=== PATIENT | female | born 1945 | race Caucasian/White ===

== ENCOUNTER 2018-01-16 04:33 | Emergency (ER) | payer MEDICARE, OTHER ==
[~2018-01-16] VITALS: Ht 165.1 cm; Wt 90.7 kg
[~2018-01-16 04:33] MED LIST: ALPR.25T PO; ASP81CT PO; BNZ10T PO; CEFU250T PO; CHOL100011 PO; CLD600T PO; CODE-54 PO; DIAZIDE; DIPH25TA82 PO; DIPH50CA33; FLD5TCR; GINK120C PO; GINKGO; GINKGO BILOBA 40 MG PO; KCL10CCR PO; LEVO250T11 PO; LOTREL; LOVA20TA2 PO; MELO-195 PO; MELO7.5T; MULT1TAB63 PO; PROP1TAB77; SERT100T8 PO; SERT50TA; TRIA1CAP PO
--- OUTSIDE RECORDS SUMMARY | 2018-01-16 04:40 | XMS REPORT | Clinical Summary ---
Author Author User, [employer] Katelyn Bruno DO, FACP Address Unknown Phone Allergies, Adverse Reactions, Alerts Allergy Name Reaction Description Start Date Severity Status Provider MORPHINE respiratory depression Critical Active Katelyn Bruno LORTAB confusion Critical Active Katelyn Bruno FLEXERIL Dermatological problems, e.g., rash, hives Critical Active Katelyn Bruno Conditions or Problems Problem Name Problem Code Onset Date Status Entry Date Provider Comment Standard Description Annotate HYPERCHOLESTEROLEMIA 272.0 Active Katelyn Bruno Pure hypercholesterolemia HYPERTENSION, ACCELERATED OR MALIGNANT 401.0 Active Katelyn Bruno Malignant essential hypertension OSTEOARTHRITIS 715.90 Active Katelyn Bruno Osteoarthrosis, unspecified whether generalized or localized, involving unspecified site SINUSITIS, ACUTE 461.9 Resolved Katelyn Bruno Acute sinusitis, unspecified BACK PAIN 724.5 Resolved Katelyn Bruno Backache, unspecified CARPAL TUNNEL SYNDROME, LEFT 354.0 Resolved Katelyn Bruno Carpal tunnel syndrome SCREENING MAMMOGRAM NEC V76.12 Resolved Katelyn Bruno Other screening mammogram DIABETES MELLITUS, TYPE II, FAMILY HX V18.0 Resolved Katelyn Bruno Family history of diabetes mellitus DEPRESSION 311 Active Katelyn Bruno Depressive disorder, not elsewhere classified SINUSITIS 473.9 Resolved Katelyn Bruno Unspecified sinusitis (chronic) BRONCHITIS 490 Resolved Katelyn Bruno Bronchitis, not specified as acute or chronic PNEUMONIA 486 Resolved Katelyn Bruno Pneumonia, organism unspecified SINUSITIS 473.9 Resolved Katelyn Bruno Unspecified sinusitis (chronic) ABDOMINAL PAIN, ACUTE 789.00 Resolved Katelyn Bruno Abdominal pain, unspecified site SYMPTOM, PAIN, ABDOMINAL, GENERALIZED 789.07 Resolved Katelyn Bruno Abdominal pain, generalized POLYARTHRALGIA 719.49 Active Katelyn Bruno Pain in joint involving multiple sites VACCINE AGAINST STREPTOCOCCUS PNEUMONIAE V03.82 Resolved Katelyn Bruno Need for prophylactic vaccination against Streptococcus pneumoniae [pneumococcus] MAMMOGRAM, ABNORMAL 793.80 Resolved Katelyn Bruno Abnormal mammogram, unspecified HYPERGLYCEMIA, MILD 790.6 Resolved Katelyn Bruno Other abnormal blood chemistry ENCOUNTER FOR LONG-TERM USE OF OTHER MEDICATIONS V58.69 Active Katelyn Bruno Long-term (current) use of other medications CHEST PAIN, ATYPICAL 786.59 Resolved Katelyn Bruno Other chest pain HAND PAIN, LEFT 729.5 Resolved Katelyn Bruno Pain in limb DIABETES MELLITUS, NONINSULIN DEPENDENT (NIDDM) 250.02 Active Katelyn Bruno Diabetes mellitus without mention of complication, type II or unspecified type, uncontrolled BRONCHITIS 490 Resolved Katelyn Bruno Bronchitis, not specified as acute or chronic ACTINIC KERATOSIS 702.0 Resolved Katelyn Bruno Actinic keratosis OSTEOPENIA 733.90 Active Katelyn Bruno Disorder of bone and cartilage, unspecified HIATAL HERNIA WITH REFLUX 553.3 Resolved Katelyn Bruno Diaphragmatic hernia without mention of obstruction or gangrene BACK PAIN 724.5 Resolved Katelyn Bruno Backache, unspecified KNEE PAIN 719.46 Active Katelyn Bruno Pain in joint involving lower leg OTHER SPECIFIED DISORDER OF STOMACH AND DUODENUM 537.89 Resolved Katelyn Bruno Other specified disorders of stomach and duodenum Medication List Medication Instructions Start Date Stop Date Generic Name NDC Status Provider Patient Instruction OMEPRAZOLE 40 MG CPDR 1 PO DAILY OMEPRAZOLE 76074177218 Active Desire Madera REGLAN 10 MG TAB 1 PO 30 minutes before meals and at bedtime METOCLOPRAMIDE HCL 42107484468 No Longer Active Katelyn Bruno PROTONIX 40 MG TBEC 1 po qd PANTOPRAZOLE SODIUM 80212620953 No Longer Active Desire Madera OMEPRAZOLE 40 MG CPDR 1 PO BID OMEPRAZOLE 21508733654 No Longer Active Desire Madera TRIAMCINOLONE ACETONIDE 0.1 % CREA apply BID prn TRIAMCINOLONE ACETONIDE (TOP) 63099290275 Active Katelyn Bruno ZOSTAVAX 02574 UNT/0.65ML SOLR 1 injection once to prevent Shingles ZOSTER VACCINE LIVE 61682707797 No Longer Active Katelyn Bruno KLOR-CON 10 10 MEQ CR-TABS 1 PO daily POTASSIUM CHLORIDE 88121722207 Active Desire Madera PROTONIX 40 MG TBEC 1 po BID PANTOPRAZOLE SODIUM 43228998086 No Longer Active Desire Madera ZOLOFT 100 MG TABS 1 po daily SERTRALINE HCL 73145902533 Active Desire Madera VITAMIN D 1000 UNIT TABS 1 PO Daily CHOLECALCIFEROL 29535406325 Active Katelyn Bruno TRAMADOL HCL 50 MG TABS 0.5-1 tabs po q6 hrs prn TRAMADOL HCL 07623981981 No Longer Active Katelyn Gianna Bruno MELATONIN 3 MG CAPS 1 PO Q6hrs prn MELATONIN 14656779903 No Longer Active Katelyn Gianna Bruno AUGMENTIN 500-125 MG TAB 1 PO BID AMOXICILLIN-POT CLAVULANATE 66365586212 No Longer Active Aysha Hollidayg ROBITUSSIN A-C 10-100 MG/5ML SYRUP 1 teaspoon PO Q 4-6 hr prn ROBITUSSIN A-C 10-100 MG/5ML SYRUP No Longer Active Katelyn Gianna Bruno AUGMENTIN 500-125 MG TAB 1 PO BID AMOXICILLIN-POT CLAVULANATE 98415116533 No Longer Active Katelyn Gianna Bruno CALTRATE 600 PLUS-VIT D 600-200 MG-IU TABS 1 PO BID CALCIUM-VITAMIN D Active Katelyn Gianna Bruno BENADRYL 25 MG CAP 1 PO QHS DIPHENHYDRAMINE HCL 05325906425 No Longer Active Katelyn Gianna Bruno ROBITUSSIN A-C 10-100 MG/5ML SYRUP 1 teaspoon PO Q 4-6 hr prn ROBITUSSIN A-C 10-100 MG/5ML SYRUP No Longer Active Desire Madera TYLENOL WITH CODEINE #3 300-30 MG TABS 1 PO Q6hrs prn pain ACETAMINOPHEN-CODEINE 13813627308 Active Desire Madera ROBITUSSIN A-C 10-100 MG/5ML SYRUP 1 teaspoon PO Q 4-6 hr prn ROBITUSSIN A-C 10-100 MG/5ML SYRUP No Longer Active Desire Madera ULTRACET 37.5-325 MG TABS 1 po q 6 hrs prn TRAMADOL- ACETAMINOPHEN 62834389364 No Longer Active Katelyn Gianna Bruno DARVON 65 MG CAPS 1 PO TID PROPOXYPHENE HCL 85099879259 No Longer Active Katelyn Gianna Damion CALTRATE PLUS 600-200 MG-UNIT TABS 1 PO daily CALCIUM CARBONATE-VIT D-MIN 40164966079 No Longer Active Katelyn Gianna Bruno LORTAB 5 5-500 MG TABS 1 to 2 PO Q6hrs prn ACETAMINOPHEN-HYDROCODONE 45429145118 No Longer Active Katelyn Gianna Bruno LOVASTATIN 20 MG TABS 1 PO daily LOVASTATIN 80474136216 Active Desireleonidas Madera DARVOCET-N 100 100-650 MG TABS 2 PO in AM and 1 PO PM PROPOXYPHENE N-APAP 80882444704 No Longer Active Desire Wyalusing XANAX 0.25 MG TABS 1 PO Q6hrs prn ALPRAZOLAM 93321289017 Active Desireleonidas Madera ZOLOFT 50 MG TABS 1 po daily SERTRALINE HCL 19024871032 No Longer Active Katelyn Gianna Damion PERCOCET 5-325 MG TAB 1 PO Q 6 hours prn OXYCODONE- ACETAMINOPHEN 12548834486 No Longer Active Katelyn Gianna Bruno FELODIPINE 5 MG TB24 1 PO daily FELODIPINE 49855364857 No Longer Active Katelyn Gianna Damion MUJICAVOCET-N 100 100-650 MG TABS 2 in the am, and then 1 in the pm prn 04/20 PROPOXYPHENE N-APAP 75572190578 No Longer Active Katelyn Gianna Bruno BACTERICIN 500 UNIT/GM OINT (BACITRACIN) EYE OINTMENT apply to right eye Q4hrs for 7 days BACTERICIN 500 UNIT/GM OINT ( BACITRACIN) EYE OINTMENT No Longer Active Katelyn Gianna Bruno TESSALON 200 MG CAPS 1 PO TID prn cough BENZONATATE 97849292011 No Longer Active Katelynsally Bruno ROBITUSSIN A-C 10-100 MG/5ML SYRUP 1 teaspoon PO Q 4-6 hr prn ROBITUSSIN A-C 10-100 MG/5ML SYRUP 53147177314 No Longer Active Katelynsally Bruno MUCINEX 600 MG TB12 1 PO BID for 5 days GUAIFENESIN 11762949863 No Longer Active Katelynsally Bruno BIAXIN XL PAC 500 MG TB24 2 pills at same time daily for 7 days CLARITHROMYCIN 64975952687 No Longer Active Katelynsally Bruno LORTAB 5 5-500 MG TABS 1 PO Q4-6 hrs. prn pain HYDROCODONE-ACETAMINOPHEN 41053614909 No Longer Active Katelynsally Bruno ANTIVERT 25 MG TABS 1 PO Q6hrs prn dizziness MECLIZINE HCL 12283222956 No Longer Active Katelynsally Bruno XANAX 0.25 MG TABS 1/2 -1 po q 4-6 hrs. prn ALPRAZOLAM 69146609848 No Longer Active Katelyn Bruno PREDNISONE 20 MG TAB 2 daily for 4 days. PREDNISONE 14675105793 No Longer Active Katelynsally Bruno LEVAQUIN 500 MG TAB 1 PO QD for 7 days LEVOFLOXACIN 84210833306 No Longer Active Katelynsally Bruno BIAXIN XL 500 MG TB24 2 pills at the same time daily for 7 days CLARITHROMYCIN 38666820702 No Longer Active Toby Hines PREDNISONE 20 MG TABS 2 po QD x 3 days PREDNISONE 80552733917 No Longer Active Katelynsally Bruno ADVAIR DISKUS 100-50 MCG/DOSE MISC 1 puff BID FLUTICASONE-SALMETEROL 10590753827 No Longer Active Katelynsally Bruno CODICLEAR DH 5-100 MG/5ML SYRP 5 cc Po Q4-6prn HYDROCODONE-GUAIFENESIN 10273277660 No Longer Active Z Z BIAXIN XL PAC 500 MG TB24 2 pills at same time daily for 7 days CLARITHROMYCIN 93331730536 No Longer Active Z Z SOMA 350 MG TAB 1 PO TID prn CARISOPRODOL 82323524690 No Longer Active Katelyn Gianna Bruno CODICLEAR DH 5-100 MG/5ML SYRP 5 cc Po Q4-6prn HYDROCODONE-GUAIFENESIN 73930202598 No Longer Active Katelyn CUNNINGHAM'S NASAL SPRAY (DEXAMETHASONE, GENTAMICIN, SALINE) 2 puffs each nostril TID DR. CUNNINGHAM'Carlee NASAL SPRAY (DEXAMETHASONE, GENTAMICIN, SALINE) No Longer Active Katelyn Bruno AUGMENTIN 875-125 MG TAB 1 PO BID for 7 days AMOXICILLIN-POT CLAVULANATE 70081653799 No Longer Active Katelyn Bruno BENAZEPRIL HCL 10 MG TABS 1 PO daily BENAZEPRIL HCL 55730951575 Active Desire Madera MOBIC 15 MG TABS 1 po daily MELOXICAM 68919390015 Active Desire Madera VITAMIN E 400 UNIT CAPS 1 PO Week VITAMIN E 59368952342 No Longer Active Katelyn Bruno ASPIRIN 81 MG TAB 1 PO daily ASPIRIN 20712679369 Active Katelynsally Bruno SOMA 350 MG TABS 1 po BID PRN CARISOPRODOL 39571713398 No Longer Active Katelynsally Bruno TOPROL XL 25 MG TB24 1 PO QD METOPROLOL SUCCINATE 68803524284 No Longer Active Katelynsally Bruno ZOCOR 20 MG TABS 1 PO QHS for cholesterol SIMVASTATIN 36635913272 No Longer Active Katelyn Gianna Bruno DYAZIDE 37.5-25 MG CAPS 1 PO QD TRIAMTERENE-HCTZ 91487520877 Active Desire Madera BENAZEPRIL HCL 10 MG TABS I Daily BENAZEPRIL HCL 40284591534 No Longer Active Katelyn Gianna Bruno ALTACE 5 MG CAP 1 daily RAMIPRIL 26225798217 No Longer Active Katelyn Gianna Bruno LOTREL 5-10 MG CAPS 1 PO QD AMLODIPINE BESY-BENAZEPRIL HCL 34771802106 No Longer Active Katelyn Gianna Bruno AMOXICILLIN 500 MG CAP 1 PO TID AMOXICILLIN 08328828479 No Longer Active Katelyn Gianna Bruno ROBITUSSIN A-C 10-100 MG/5ML SYRUP 5cc PO Q 4-6 hr prn ROBITUSSIN A-C 10-100 MG/5ML SYRUP 16641697764 No Longer Active Katelyn Gianna Bruno NORVASC 5 MG TABS 1 po QD AMLODIPINE BESYLATE 19061094667 No Longer Active Katelyn Gianna Bruno GINKOBA 40 MG TABS 6 po daily GINKGO BILOBA 29458517195 Active Katelyn Gianna Bruno CALCIUM 600 MG TABS 1 po daily CALCIUM 76582654513 No Longer Active Katelyn Gianna Bruno MULTIVITAMINS TABS 1 po daily MULTIPLE VITAMIN 45751634510 Active Katelyn Gianna Bruno Immunizations Vaccine Administration Date Value Standard Description pneumococcal immunization administered dose 1 pneumococcal polysaccharide vaccine, 23 valent Vital Signs Date Name Value Unit Range Description blood pressure, diastolic - 8462-4 84 mm[Hg] BP capone blood pressure, systolic - 8480-6 146 mm[Hg] BP sys pulse rate E&M - 8867-4 66 /min Heart rate respiratory rate E&M - 9279-1 14 /min Resp rate temperature E&M 98.6 [degF] Body temperature weight E&M - 3141-9 202 [lb_av] Weight Measured blood pressure, diastolic - 8462-4 82 mm[Hg] BP capone blood pressure, systolic - 8480-6 132 mm[Hg] BP sys pulse rate E&M - 8867-4 68 /min Heart rate respiratory rate E&M - 9279-1 14 /min Resp rate temperature E&M 98.6 [degF] Body temperature weight E&M - 3141-9 205 [lb_av] Weight Measured Diagnostic Results Date Name Value Unit Range Description Clinical Lists Update: CBC,CMP,FLP,TSH,HGA1C - Chemistry Estimated Glomerular Filtration Rate (calc) 67 mL/min/1.73m2 albumin, serum 3.8 g/dL alkaline phosphatase, serum 57 U/L urea nitrogen, blood 26 mg/dL calcium, serum 9.1 mg/dL chloride, serum 103 mmol/L cholesterol, serum 178 mg/dL carbon dioxide, venous blood 27.0 mmol/L creatinine, serum 0.9 mg/dL HDL cholesterol, serum 60.0 mg/dL hemoglobin A1C, blood, as % of total hemoglobin 5.8 % thyroid stimulating hormone, serum 2.97 u[iU]/mL LDL cholesterol, serum 102 mg/dL potassium, serum 3.8 mmol/L protein, total, serum 6.5 g/dL aspartate aminotransferase (SGOT), serum 19 U/L alanine aminotransferase (SGPT), serum 12 U/L bilirubin, serum, total 0.3 mg/dL triglyceride, serum, fasting 80 mg/dL sodium, serum 137 mmol/L anion gap, serum 11 cholesterol/HDL ratio, serum, percent 3.0 glucose, plasma fasting 90 mg/dL Clinical Lists Update: CBC,CMP,FLP,TSH,HGA1C - Hematology platelet count 288 10*3/mm3 hematocrit, blood 37.4 % leukocyte count, blood 6.8 10*3/mm3 mean corpuscular volume, RBC 90 fL erythrocyte (RBC) count 4.15 10*6/mm3 red blood cell distribution width 15.2 % hemoglobin, blood 11.7 g/dL Clinical Lists Update: CMP,FLP,HgA1c - Chemistry potassium, serum 3.9 mmol/L protein, total, serum 6.6 g/dL calcium, serum 9.2 mg/dL aspartate aminotransferase (SGOT), serum 18 U/L alanine aminotransferase (SGPT), serum 14 U/L chloride, serum 104 mmol/L bilirubin, serum, total 0.3 mg/dL triglyceride, serum, fasting 80 mg/dL cholesterol, serum 196 mg/dL sodium, serum 140 mmol/L anion gap, serum 10 carbon dioxide, venous blood 30.0 mmol/L cholesterol/HDL ratio, serum, percent 3.1 glucose, plasma fasting 86 mg/dL urea nitrogen, blood 26 mg/dL LDL cholesterol, serum 117 mg/dL creatinine, serum 1.0 mg/dL albumin, serum 3.7 g/dL HDL cholesterol, serum 63.0 mg/dL hemoglobin A1C, blood, as % of total hemoglobin 6.0 % Estimated Glomerular Filtration Rate (calc) 62 mL/min/1.73m2 alkaline phosphatase, serum 58 U/L Clinical Lists Update: Microalbumin - Urinalysis microalbumin, urine, semiquantitative 0.3 mg/dL Encounters Code Encounter Date Provider Facility CPT-93814 Ofc Vst, Est Level IV 17:21:39 [employer] Katelyn Giannachicho Bruno, DO, FACP CPT-30117 Ofc Vst, Est Level III 14:10:40 CDT Katelyn Bruno, DO, FACP CPT-95998 Ofc Vst, Est Level III 14:09:49 [employer] Katelyn Bruno, DO, FACP CPT-72747 Ofc Vst, Est Level III 16:35:58 CDT Katelyn Bruno, DO, FACP CPT-12851 Ofc Vst, Est Level III 14:23:28 CDT Katelyn Bruno DO, FACP CPT-76040 Ofc Vst, Est Level III 16:19:00 CDT Katelyn Bruno, DO, FACP CPT-22099 Ofc Vst, Est Level II 13:40:07 [employer] Katelyn Bruno, DO, FACP CPT-24308 Ofc Vst, Est Level II 14:08:27 CDT Katelyn Bruno DO, FACP CPT-26111 Ofc Vst, Est Level IV 14:30:27 CDT Katelynsally Bruno DO, FACP CPT-83488 Ofc Vst, Est Level III 14:25:12 CDT Katelyn [facility] CPT-62155 Ofc Vst, Est Level IV 14:55:40 CDT Katelyn Bruno, DO, FACP CPT-13196 Ofc Vst, Est Level IV 10:16:53 [employer] Katelyn Gianna Bruno Katelyn S Bruno, DO, FACP CPT-57974 Ofc Vst, Est Level IV 11:33:00 CDT Katelyn Gianna Bejarano Bruno, DO, FACP CPT-99669 Ofc Vst, Est Level IV 09:40:50 CDT Katelyn Gianna Bejarano Bruno, DO, FACP CPT-93003 Ofc Vst, Est Level IV 10:04:43 [employer] Katelyn Bejarano Damion, DO, FACP CPT-46829 Ofc Vst, Est Level IV 10:58:02 CDT Katelyn Gianna Bejarano Damion, DO, FACP CPT-34477 Ofc Vst, Est Level IV 14:54:31 CDT Katelyn Bejarano Damion, DO, FACP CPT-69912 Ofc Vst, Est Level IV 15:50:03 [employer] Katelynsally Bejarano Dmaion, DO, FACP CPT-21466 Office Consult, Level IV 11:22:19 [employer] Katelyn Bejarano Damion, DO, FACP CPT-65158 Ofc Vst, Est Level V 10:18:49 [employer] Katelyn Bejarano Damion, DO, FACP CPT-80742 Ofc Vst, Est Level IV 15:01:36 CDT Katelynsally Bejarano Damion, DO, FACP CPT-56667 Ofc Vst, Est Level IV 12:35:03 CDT Katelynsally Bejarano Damion, DO, FACP CPT-03398 Ofc Vst, Est Level IV 09:26:28 CDT Katelyn Gianna Bejarano Damion, DO, FACP CPT-03802 Ofc Vst, Est Level V 09:09:23 CDT Katelyn Gianna Bejarano Damion, DO, FACP CPT-13778 Ofc Vst, Est Level IV 14:50:18 CDT Katelynsally Bruno DO, FACP CPT-94663 Ofc Vst, Est Level IV 16:23:19 CDT Katelyn Bruno [facility] CPT-93942 Ofc Vst, Est Level IV 10:07:48 CDT Katelynsally Bruno DO, FACP CPT-50246 Ofc Vst, Est Level III 10:50:44 CDT Katelynsally Bruno [facility] [place] CPT-50199 Ofc Vst, Est Level IV 11:24:10 CDT Katelyn Bruno [facility] [place] CPT-69815 Ofc Vst, Est Level IV 15:40:07 [employer] Katelyn Bruno [facility] [place] CPT-53659 Ofc Vst, Est Level IV 16:39:52 CDT Katelyn Bruno [facility] [place] CPT-77558 Ofc Vst, Est Level IV 12:04:13 CDT Katelyn Bruno [facility] [place] CPT-28309 Ofc Vst, Est Level IV 14:53:19 [employer] Katelyn Bruno [facility] [place] CPT-04451 Ofc Vst, Est Level III 16:09:25 [employer] Katelyn Bruno [facility] [place] CPT-19841 Ofc Vst, Est Level IV 17:51:02 CDT Katelyn Bruno [facility] [place] CPT-80752 Ofc Vst, Est Level IV 09:57:23 CDT Katelyn Bruno [facility] [place] CPT-20220 Ofc Vst, Est Level IV 14:22:11 CDT Katelyn Bruno [facility] [place] CPT-28199 Ofc Vst, Est Level IV 09:12:54 CDT Katelyn Bruno [facility] [place] Procedures Code Procedure Name Date Entry Date Standard Description CPT-G0439 Medicare Annual Wellness Visit 17:11:29 CDT CPT-G0439 Medicare Annual Wellness Visit 16:44:31 CDT CPT-G8445 E-Prescribing Not sent due to no medication given 14:10: 40 CDT CPT-G8445 E-Prescribing Not sent due to no medication given 14:09: 49 [employer] CPT-G8446 E-Prescribing not done due to controlled substance 16:35 :58 CDT CPT-G8446 E-Prescribing not done due to controlled substance 14:23 :28 CDT CPT-G8443 E-Prescribing Medication Sent 16:19:00 CDT CPT-G8445 E-Prescribing Not sent due to no medication given 13:40: 07 [employer] CPT-G8445 E-Prescribing Not sent due to no medication given 14:38: 23 [employer] CPT-G0439 Medicare Annual Wellness Visit 14:38:23 [employer] CPT-61003 Cryopathy Skin 14:08:27 CDT CPT-G0402 Medicare Annual Wellness Visit Initial 13:44:52 [employer] CPT-8446 E-Prescribing not done due to controlled substance 14:54: 31 CDT CPT-01060 Injection, Pneumovax 10:18:49 [employer]
--- NOTE | 2018-01-16 04:43 | ED Abdominal Pain ---
General Chief Complaint: Dizziness/Syncope Stated Complaint: NEAR SYNCOPE Source of Information: Patient, EMS Exam Limitations: No Limitations (MARISELA LOVELACE) History of Present Illness Date Seen by Provider: Jan 16, 2018 Time Seen by Provider: 04:31 Initial Comments The patient presents to the ER by EMS with a chief complaint that she had got up this morning to go to the bathroom thought she does not have a bowel movement but didn't became cold clammy and started to pass out. She says she did not completely pass out nor did she fall or hit her head. She got up and went numb lock the door and called EMS. She says she was unable to pass anything and had bloating and tightness in her belly feel like she had ruptured something. She's not having much pain just a lot of pressure down below. She denies dysuria or discharge. She's not had any fevers or chills lately. She does not have a history of heart disease. She does have a history of a hiatal hernia that was found in this ER and was admitted she had to go to [place] to have a cardiothoracic surgeon help repair it. She's not having any chest pain, acid reflux, indigestion. She is not on blood thinners but she does take aspirin and meloxicam. EMS notes her blood pressure was low in the 70-80 systolic range and they started a 20-gauge antecubital IV and got 1 L fluids about 3/4 by the time they got to the ER. (MARISELA LOVELACE) Allergies and Home Medications Allergies Coded Allergies: cyclobenzaprine (Verified Allergy, Unknown, 05/14/07) morphine (Verified Allergy, Unknown, 08/10/08) Home Medications Alprazolam 0.25 Mg Tablet, 0.5 TAB PO Q6H PRN for ANXIETY, (Reported) TAKES 1/2 (0.25MG) TABLET NEEDED FOR ANXIETY Aspirin 81 Mg Tablet, 81 MG PO HS, (Reported) Benazepril Hcl 10 Mg Tablet, 10 MG PO HS, (Reported) Calcium Carbonate/Vitamin D3 1 Tab Tablet, 1 TAB PO DAILY, (Reported) Cefuroxime Axetil 250 Mg Tablet, 250 MG PO BID Prescribed by: STAN MENENDEZ on 01/27/16 1319 Cholecalciferol 1,000 Unit Capsule, 1,000 UNIT PO DAILY, (Reported) Ciprofloxacin HCl 500 Mg Tablet, 500 MG PO BID Prescribed by: KEVIN TEMPLE on 01/16/18820 Diphenhydramine Hcl 25 Mg Tablet, 50 MG PO HS PRN for SLEEP, (Reported) TAKES 2 (25MG) TABLETS NEEDED FOR SLEEP Ginkgo Biloba Extract 120 Mg Capsule, 120 MG PO DAILY, (Reported) Lovastatin 20 Mg Tablet, 20 MG PO HS, (Reported) Meloxicam 15 Mg Tablet, 15 MG PO DAILY, (Reported) Metronidazole 500 Mg Tablet, 500 MG PO QID Prescribed by: KEVIN TEMPLE on 01/16/18820 Multivitamins 1 Ea Tablet, 1 TAB PO DAILY, (Reported) Ondansetron 4 Mg Tab.rapdis, 4 MG PO Q4H Prescribed by: KEVIN TEMPLE on 01/16/18820 Potassium Chloride 10 Meq Capcr, 10 MEQ PO DAILY, (Reported) Sertraline Hcl 100 Mg Tablet, 100 MG PO DAILY, (Reported) Triamterene/Hctz 1 Each Capsule, 1 CAP PO DAILY, (Reported) 37.5-25MG CAPSULE Patient Home Medication List Home Medication List Reviewed: Yes (MARISELA LOVELACE) Review of Systems Constitutional: No chills, No diaphoresis; dizziness, malaise, weakness EENTM: No Blurred Vision, No Double Vision Respiratory: Denies Cough, Denies Shortness of Air Cardiovascular: Denies Chest Pain, Denies Edema Gastrointestinal: Abdomen Distended, Abdominal Pain, Constipated; Denies Diarrhea, Denies Nausea, Denies Poor Fluid Intake, Denies Vomiting Genitourinary: Denies Burning, Denies Discharge Musculoskeletal: No back pain, No joint pain Skin: No pruritus, No rash Psychiatric/Neurological: Denies Headache, Denies Numbness Hematologic/Lymphatic: Denies Blood Clots, Denies Easy Bleeding, Denies Easy Bruising (MARISELA LOVELACE) Past Ovjyhim-Vyoelh-Swglln Hx Patient Social History Recent Foreign Travel: No Contact w/Someone Who Travel: No (MARISELA LOVELACE) Immunizations Up To Date Tetanus Booster (TDap): Unknown PED Vaccines UTD: No Date of Pneumonia Vaccine: May 06, 2010 (MARISELA LOVELACE) Past Medical History Appendectomy, Orthopedic Sleep Apnea Currently Using CPAP: No Currently Using BIPAP: Yes High Cholesterol, Hypertension Reproductive Disorders: Yes Female Reproductive Disorders: Denies [employer]IST[employer] History: Menopausal Sexually Transmitted Disease: No HIV/AIDS: No Hiatal Hernia Degenerate Disk Disease, Arthritis, Chronic Back Pain Breast Anxiety, Depression (MARISELA LOVELACE) Physical Exam Vital Signs Vital Signs - First Documented 01/16/18 01/16/18 01/16/18 04:37 08:03 08:32 Temp 95.0 Pulse 66 Resp 18 B/P (MAP) 115/76 (89) Pulse Ox 98 O2 Delivery Nasal Cannula O2 Flow Rate 2.00 (KEVIN TEMPLE K DO) Vital Signs Capillary Refill : (MARISELA LOVELACE) General Appearance: WD/WN, mild distress HEENT: PERRL/EOMI, pharynx normal Neck: non-tender, supple, normal inspection Respiratory: chest non-tender, lungs clear, normal breath sounds, no respiratory distress, no accessory muscle use Cardiovascular: normal peripheral pulses, regular rate, rhythm, no edema Peripheral Pulses: 2+ Dorsalis Pedis (R), 2+ Left Dors-Pedis (L) Gastrointestinal: normal bowel sounds, no organomegaly, distended; No guarding , No rebound; tenderness (mild, diffuse without Ronquillo sign or pain over McBurney's point) Extremities: non-tender, normal inspection, normal capillary refill Neurologic/Psychiatric: alert, normal mood/affect, oriented x 3 Skin: normal color, warm/dry (MARISELA LOVELACE) Progress/Results/Core Measures Results/Orders Lab Results Laboratory Tests Test 01/16/18 04:36 01/16/18 08:22 Range/Units White Blood Count 11.0 4.3-11.0 10^3/uL Red Blood Count 4.65 4.35-5.85 10^6/uL Hemoglobin 13.6 11.5-16.0 G/DL Hematocrit 41 35-52 % Mean Corpuscular Volume 87 80-99 FL Mean Corpuscular Hemoglobin 29 25-34 PG Mean Corpuscular Hemoglobin Concent 34 32-36 G/DL Red Cell Distribution Width 14.2 10.0-14.5 % Platelet Count 348 130-400 10^3/uL Mean Platelet Volume 8.8 7.4-10.4 FL Neutrophils (%) (Auto) 62 42-75 % Lymphocytes (%) (Auto) 32 12-44 % Monocytes (%) (Auto) 4 0-12 % Eosinophils (%) (Auto) 2 0-10 % Basophils (%) (Auto) 0 0-10 % Neutrophils # (Auto) 6.8 1.8-7.8 X 10^3 Lymphocytes # (Auto) 3.5 1.0-4.0 X 10^3 Monocytes # (Auto) 0.4 0.0-1.0 X 10^3 Eosinophils # (Auto) 0.2 0.0-0.3 10^3/uL Basophils # (Auto) 0.0 0.0-0.1 10^3/uL Sodium Level 140 135-145 MMOL/L Potassium Level 4.0 3.6-5.0 MMOL/L Chloride Level 109 H 98-107 MMOL/L Carbon Dioxide Level 18 L 21-32 MMOL/L Anion Gap 13 5-14 MMOL/L Blood Urea Nitrogen 26 H 7-18 MG/DL Creatinine 1.29 0.60-1.30 MG/DL Estimat Glomerular Filtration Rate 40 BUN/Creatinine Ratio 20 Glucose Level 157 H 70-105 MG/DL Calcium Level 9.5 8.5-10.1 MG/DL Magnesium Level 2.6 H 1.8-2.4 MG/DL Total Bilirubin 0.4 0.1-1.0 MG/DL Aspartate Amino Transf (AST/SGOT) 35 H 5-34 U/L Alanine Aminotransferase (ALT/SGPT) 19 0-55 U/L Alkaline Phosphatase 71 40-136 U/L Troponin I < 0.30 <0.30 NG/ML Total Protein 7.5 6.4-8.2 GM/DL Albumin 3.8 3.2-4.5 GM/DL Urine Color YELLOW Urine Clarity CLEAR Urine pH 5 5-9 Urine Specific [place] 1.015 L 1.016-1.022 Urine Protein 2+ H NEGATIVE Urine Glucose (UA) NEGATIVE NEGATIVE Urine Ketones NEGATIVE NEGATIVE Urine Nitrite NEGATIVE NEGATIVE Urine Bilirubin NEGATIVE NEGATIVE Urine Urobilinogen NORMAL NORMAL MG/DL Urine Leukocyte Esterase 1+ H NEGATIVE Urine RBC (Auto) 1+ H NEGATIVE Urine RBC RARE /HPF Urine WBC 0-2 /HPF Urine Squamous Epithelial Cells 0-2 /HPF Urine Renal Epithelial Cells RARE /HPF Urine Crystals PRESENT H /LPF Urine Amorphous Sediment FEW GUICHO URATES H /LPF Urine Bacteria TRACE /HPF Urine Casts PRESENT /LPF Urine Hyaline Casts 10-25 H /LPF Urine Granular Casts RARE /LPF Urine White Blood Cell Casts RARE H /LPF Urine Mucus NEGATIVE /LPF Urine Culture Indicated NO (KEVIN TEMPLE DO) My Orders Orders - KEVIN TEMPLE DO O2 (01/16/18 08:23) (KEVIN TEMPLE DO) Medications Given in ED Current Medications Medications Dose Ordered Sig/Vidal Route Start Time Stop Time Status Last Admin Dose Admin Diatrizoate Meglum/ Diatrizoate Sod 120 ml ONCE ONCE PO 01/16/18 05:30 01/16/18 05:32 DC 01/16/18 06:44 20 ML Ondansetron HCl 4 mg ONCE ONCE IVP 01/16/18 06:30 01/16/18 06:31 DC 01/16/18 06:27 4 MG (KEVIN TEMPLE DO) Vital Signs/I&O 01/16/18 01/16/18 01/16/18 04:37 08:03 08:32 Temp 95.0 Pulse 66 66 Resp 18 B/P (MAP) 115/76 (89) 94/60 Pulse Ox 98 88 97 O2 Delivery Nasal Cannula Room Air O2 Flow Rate 2.00 (KEVIN TEMPLE DO) Progress Progress Note #1: Time: 04:48 Progress Note The abdomen is not rigid but it is apparently distended as if with gas. Bowel obstruction versus ileus versus diverticulitis versus ischemic bowel. We'll get a CT with contrast of her abdomen and pelvis. We'll give her a couple liters of fluid total including the 1 L started by EMS. Her blood pressure is already above 110 systolic. We will obtain labs and urinalysis. She is declining pain meds at this time. She is not having any nausea or vomiting so she will not need medicine or NG tube bowel decompression. Does not sound like she fell or struck her head so a CT of the head and neck is also unnecessary.. Reviewed the 12-lead from EMS and there is very good, clear sinus rhythm picture. Progress Note #2: Time: 06:15 Progress Note Nursing reports that the patient after drinking the Gastrografin passed a large bowling ball size hard stool ball. Her blood pressure got down to 90 systolic while she was on the chair but she did not pass out. She feels a little better and she is not having any nausea. Her pain and pressure is beginning to mildly improved. Plan is to get the CT scan after the Gastrografin has passed through the bowels and reevaluate. Most likely she's had vasovagal syncope secondary to obstipation. (MARISELA LOVELACE) Progress Note : Progress Note 0615--ASSUMED CARE FROM DR. LOVELACE, CT PENDING. PT IS RESTING QUIETLY AND HAS NO COMPLAINTS AT THIS TIME PT DECLINES RX FOR PAIN MEDICATIONS, STATES SHE HAS TYLENOL 33 AT HOME (KEVIN TEMPLE DO) Initial ECG Impression Date: Jan 16, 2018 Initial ECG Impression Time: 04:50 Initial ECG Rate: 63 Initial ECG Rhythm: Normal Sinus Initial ECG Intervals: Normal Initial ECG Impression: Normal Initial ECG Comparisson: Unchanged Comment Low amplitude with hard to make out P waves but the QRS rhythms are very regular. No ST elevation or depression. (MARISELA LOVELACE) Diagnostic Imaging Diagonstic Imaging: CT (with contrast) Plain Films/CT/US/NM/MRI: abdomen, pelvis Reviewed: Reviewed Night [place] Study, Reviewed by Me (MARISELA LOVELACE) Comments CT ABDOMEN/PELVIS--DIVERTICULITIS, HIATAL HERNIA--PER RADIOLOGIST REPORT @ 0815 Reviewed: Reviewed by Me (KEVIN TEMPLE DO) Transfer of Care Time: 06:14 Care transferred to: Angel Luis (MARISELA LOVELACE) Departure Impression Primary Impression: Near syncope Additional Impressions: Diverticulitis Mild dehydration Constipation Disposition: 01 HOME, SELF-CARE Condition: Improved Departure-Patient Inst. Referrals: LAVON JI DO (PCP/Family) Primary Care Physician Patient Instructions: Constipation, Adult (DC), Dehydration, Adult (DC), Diverticulitis (DC), Fecal Impaction (DC), Syncope (Fainting), Vasovagal Response (DC) Add. Discharge Instructions: LOTS OF CLEAR LIQUIDS--WATER, BROTH, JELLO, GATORADE NO FOOD UNTIL YOUR PAIN IS GONE, THEN ADD BRATS DIET TO CLEAR LIQUIDS--BANANAS, RICE, APPLESAUCE, TOAST, SALTINES TAKE MIRALAX DAILY TAKE YOUR HOME TYLENOL #3 NEEDED FOR PAIN FOLLOW UP WITH DR. JI IN 2 DAYS FOR FURTHER CARE RETURN TO ER IF WORSE All discharge instructions reviewed with patient and/or family. Voiced understanding. Scripts Ondansetron (Zofran Odt) 4 Mg Tab.rapdis 4 MG PO Q4H for Nausea/Vomiting, #10 TAB Prov: KEVIN TEMPLE DO 01/16/18 Metronidazole (Flagyl) 500 Mg Tablet 500 MG PO QID for FOR INFECTION, #40 TAB Prov: KEVIN TEMPLE DO 01/16/18 Ciprofloxacin HCl (Cipro) 500 Mg Tablet 500 MG PO BID, #20 TAB Prov: KEVIN TEMPLE DO 01/16/18 Copy Copies To 1: LAVON JI TITUS J Jan 16, 2018 04:43 KEVIN TEMPLE DO Jan 16, 2018 06:45
[2018-01-16] MEDS ORDERED: NS IV 1000 ML 1,000 ML IV SCH (04:45)
--- OUTSIDE RECORDS SUMMARY | 2018-01-16 04:50 | XMS REPORT | Continuity of Care Document ---
Author Author [facility] Organization [facility] Address Unknown Phone Unavailable Allergies Active Description Code Type Severity Reaction Onset Reported/Identified Relationship to Patient Clinical Status Yes CYCLOBENZAPRINE SEVERE DERMATOLOGICAL - ANDREW Yes MORPHINE MILD SIDE EFFECT Yes cyclobenzaprine [id number] Drug Allergy Unknown N/A 05/14/2007 Yes morphine [id number] Drug Allergy Unknown N/A 08/10/2008 Medications Medication Packaging Start Date Stop Date Route Dosage Sig KETOROLAC VIAL INJ 15 MG/CC (TORADOL VIAL) MG 02/03/2017 02/03/2017 ONCE&0859 ONDANSETRON VIAL INJ 4 MG/2CC (ZOFRAN 2CC VIAL) MG 02/03/2017 02/03/2017 ONCE&0859 BENAZEPRIL TAB 20 MG (LOTENSIN) Dose(s) 02/03/2017 02/09/2017 Daily&0900 ASA 81MG CHEWABLE TAB 81 MG (BABY ASPIRIN) Dose(s) 02/03/2017 02/09/2017 Daily&0900 MELOXICAM TAB 7.5 MG (MOBIC) Dose(s) 02/03/2017 02/09/2017 Daily&0900 D5 1/2 NS 1000CC IV BAG INJ ml 08/201602/10/2017 CONTINUOUSEVERY 0 Hour FENTANYL INJ 100 MCG/2CC VIAL MCG 02/03/2017 02/10/2017 PRN Q2H FENTANYL AMP INJ 250 MCG/5CC MCG 02/06/2017 PRN Q2H ALPRAZOLAM TAB 0.25 MG (XANAX) Dose(s) 02/03/2017 02/13/2017 PRN Q8H ONDANSETRON VIAL INJ 4 MG/2CC (ZOFRAN 2CC VIAL) MG 02/03/2017 02/10/2017 PRN Q4H METRONIDAZOLE IV PREMIX BAG INJ 500 MG/100CC (FLAGYL IV 100CC BAG) MG 02/03/2017 02/13/2017 Q8H&0600,1400,2200 ACETAMINOPHEN ORAL TABLET 325mg(Tylenol) MG 02/03/2017 02/13/2017 PRN EVERY 4 Hour KETOROLAC VIAL INJ 30 MG/CC (TORADOL VIAL) MG 02/03/2017 02/10/2017 PRN Q6H ACETAMINOPHEN SUPPOS SUP 650 MG (TYLENOL) MG 02/03/2017 02/10/2017 PRN Q4H CIPROFLOXACIN PREMIX IV INJ 400 MG/200CC (CIPRO PREMIX IV) MG 02/03/2017 02/13/2017 BID&0800,2000 BACLOFEN TAB 10 MG (LIORESAL) Dose(s) 02/03/2017 02/13/2017 PRN QHS POLYETHYLENE GLYCOL POWDER UD PWD (MIRALAX 17GM UNIT DOSE PAKS) gm 02/04/2017 02/10/2017 Daily&0900 PANTOPAZOLE VIAL INJ 40 MG (PROTONIX IV) MG 02/04/2017 02/13/2017 Daily&0900 PANTOPAZOLE VIAL INJ 40 MG (PROTONIX IV) MG 02/04/2017 02/04/2017 ONCE&1200 NORMAL SALINE 1000CC IV BAG INJ 0.9 % (NS 1000CC IV BAG) ml 04/13/2017 04/13/2017 CONTINUOUSEVERY 0 Hour Problems Date Dx Coded Attending Type Code Diagnosis Diagnosed By 09/05/2012 Ot 724.2 LUMBAGO 09/05/2012 Ot 729.5 PAIN IN LIMB 09/05/2012 Ot V57.1 PHYSICAL THERAPY NEC 10/21/2013 KATELYN JI DO Ot 272.0 PURE HYPERCHOLESTEROLEM 10/21/2013 KATELYN JI DO Ot 300.00 ANXIETY STATE NOS 10/21/2013 KATELYN JI DO Ot 311 DEPRESSIVE DISORDER NEC 10/21/2013 KATELYN JI DO Ot 401.9 HYPERTENSION NOS 10/21/2013 KATELYN JI DO Ot 530.81 ESOPHAGEAL REFLUX 10/21/2013 KATELYN JI DO Ot 552.3 DIAPHRAGM HERNIA W OBSTR 10/21/2013 KATELYN JI DO Ot 715.90 OSTEOARTHROS NOS-UNSPEC 04/08/2014 OCTAVIO ROSENBERG, ANDRIY Scott Ot 327.23 OBSTRUCTIVE SLEEP APNEA (ADULT) (PEDIATR 02/18/2015 MANJEET ROSENBERG, LIV Burgos Ot 724.2 02/18/2015 LIV BURROUGHS MD Ot V57.1 02/18/2015 GARRISON HUI KATELYN Ot V76.12 02/18/2015 LIV BURROUGHS MD Ot 724.2 02/18/2015 LIV BURROUGHS MD Ot V57.1 02/23/2015 LIV BURROUGHS MD Ot 724.2 02/23/2015 LIV BURROUGHS MD Ot V57.1 02/26/2015 LIV BURROUGHS MD Ot 724.2 03/01/2015 LIV BURROUGHS MD Ot 724.2 03/01/2015 LIV BURROUGHS MD Ot V57.1 03/04/2015 LIV BURROUGHS MD Ot 724.2 04/02/2015 LIV BURROUGHS MD Ot 724.2 04/02/2015 LIV BURROUGHS MD Ot V57.1 04/08/2015 LIV BURROUGHS MD Ot 724.2 04/08/2015 LIV BURROUGHS MD Ot V57.1 04/16/2015 LIV BURROUGHS MD Ot 724.2 LUMBAGO 04/16/2015 LIV BURROUGHS MD Ot V57.1 PHYSICAL THERAPY NEC 05/19/2015 LIV BURROUGHS MD Ot 724.02 05/31/2015 LIV BURROUGHS MD Ot 724.02 09/24/2015 LIV BURROUGHS MD Ot M47.816 SPONDYLOSIS W/O MYELOPATHY OR RADICULOPA 09/24/2015 LIV BURROUGHS MD, Ot M51.16 INTERVERTEBRAL DISC DISORDERS W RADICULO 09/24/2015 LIV BURROUGHS MD, Ot Z79.899 OTHER SNF (CURRENT) DRUG THERAPY 10/18/2015 LIV BURROUGHS MD Ot M54.5 11/08/2015 LIV BURROUGHS MD, Ot M54.5 12/20/2015 LIV BURROUGHS MD, Ot M47.816 SPONDYLOSIS W/O MYELOPATHY OR RADICULOPA 12/20/2015 LIV BURROUGHS MD Ot M51.16 INTERVERTEBRAL DISC DISORDERS W RADICULO 12/20/2015 LIV BURROUGHS MD Ot Z79.899 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) DRUG THERAPY 12/29/2015 LIV BURROUGHS MD, Ot M47.816 SPONDYLOSIS W/O MYELOPATHY OR RADICULOPA 12/29/2015 LIV BURROUGHS MD Ot M51.16 INTERVERTEBRAL DISC DISORDERS W RADICULO 12/29/2015 LIV BURROUGHS MD Ot Z79.899 OTHER SNF (CURRENT) DRUG THERAPY 01/27/2016 M[employer]DEZ[employer]AN [employer] Ot K44.9 DIAPHRAGMATIC HERNIA WITHOUT OBSTRUCTION 01/27/2016 MENENDE[employer]RA[employer] Ot N39.0 URINARY TRACT INFECTION, SITE NOT SPECIF 01/27/2016 M[employer] Ot R53.81 OTHER MALAISE 01/28/2016 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 Ot K44.9 DIAPHRAGMATIC HERNIA WITHOUT OBSTRUCTION 01/28/2016 MEN[employer]DE[employer] Ot N39.0 URINARY TRACT INFECTION, SITE NOT SPECIF 01/28/2016 MENENDEZST[employer]RA[employer] Ot R53.81 OTHER MALAISE 01/31/2016 Ot V76.12 OTH SCREEN MAMMO-MALIGN NEOPLASM OF [place] 01/31/2016 Ot 786.50 CHEST PAIN NOS 01/31/2016 Ot V58.69 OTH MED,LT, CURRENT USE 01/31/2016 Ot 733.90 BONE CARTILAGE DIS NOS 01/31/2016 Ot V76.12 OTH SCREEN MAMMO-MALIGN NEOPLASM OF [place] 01/31/2016 Ot V76.12 OTH SCREEN MAMMO-MALIGN NEOPLASM OF [place] 01/31/2016 RUBINA JI DOI Ot V76.12 OTH SCREEN MAMMO-MALIGN NEOPLASM OF [place] 01/31/2016 GARRISON HUI KATELYN Ot V76.12 OTH SCREEN MAMMO-MALIGN NEOPLASM OF [place] 01/31/2016 LIV BURROUGHS MD Ot 724.2 LUMBAGO 01/31/2016 LIV BURROUGHS MD Ot 724.02 SPINAL STENOSIS, LUMBAR REG, W/OUT NEURO 01/31/2016 LVI BURROUGHS MD Ot M54.5 LOW BACK PAIN 01/31/2016 KATELYN JI DO Ot Z12.31 ENCNTR SCREEN MAMMOGRAM FOR MALIGNANT NE 01/31/2016 RUBINA JI DOI Ot Z12.31 ENCNTR SCREEN MAMMOGRAM FOR MALIGNANT NE 02/01/2016 RUBINA JI DOI Ot Z12.31 ENCNTR SCREEN MAMMOGRAM FOR MALIGNANT NE 02/04/2016 KATELYN JI DO Ot Z12.31 ENCNTR SCREEN MAMMOGRAM FOR MALIGNANT NE 02/24/2016 KATELYN JI DO Ot Z12.31 ENCNTR SCREEN MAMMOGRAM FOR MALIGNANT NE 01/31/2017 Ronit Foley A 599.0 URINARY TRACT INFECTION, SITE NOT SPECIFIED 01/31/2017 Ronit Foley W 724.2 LUMBAGO 01/31/2017 Ronit Foley W M54.5 LOW BACK PAIN 01/31/2017 Ronit Foley A N39.0 URINARY TRACT INFECTION, SITE NOT SPECIFIED 01/31/2017 Ronit Foley W V76.12 OTHER SCREENING MAMMOGRAM 01/31/2017 Ronit Foley W Z12.31 ENCNTR SCREEN MAMMOGRAM FOR MALIGNANT NEOPLASM OF BREAST 02/03/2017 Katelyn Ji A 562.11 DIVERTICULITIS OF COLON WITHOUT MENTION OF HEMORRHAGE 02/03/2017 Katelyn Ji A K57.32 DIVERTICULITIS OF LARGE INTESTINE WITHOUT PERFORATION OR ABSCESS WITHOUT BLEEDING 02/03/2017 Katelyn Ji W 272.4 OTHER AND UNSPECIFIED HYPERLIPIDEMIA 02/03/2017 Katelyn Ji 401.9 UNSPECIFIED ESSENTIAL HYPERTENSION 02/03/2017 Katelyn Ji 562.11 DIVERTICULITIS OF COLON WITHOUT MENTION OF HEMORRHAGE 02/03/2017 Katelyn Ji E78.5 HYPERLIPIDEMIA, UNSPECIFIED 02/03/2017 Katelyn Ji I10 ESSENTIAL (PRIMARY) HYPERTENSION 02/03/2017 Katelyn Ji K57.32 DIVERTICULITIS OF LARGE INTESTINE WITHOUT PERFORATION OR ABSCESS WITHOUT BLEEDING 02/04/2017 Katelyn Ji W 250.00 02/04/2017 Katelyn Ji W 300.00 02/04/2017 Katelyn Ji 715.90 OSTEOARTHROSIS, UNSPECIFIED WHETHER GENERALIZED OR LOCALIZED, INVOLVING UNSPECIFIED SITE 02/04/2017 Katelyn Ji E11.9 TYPE 2 DIABETES MELLITUS WITHOUT COMPLICATIONS 02/04/2017 Katelyn Ji F41.9 ANXIETY DISORDER, UNSPECIFIED 02/04/2017 Katelyn Ji M19.90 UNSPECIFIED OSTEOARTHRITIS, UNSPECIFIED SITE 04/13/2017 Jimmie De Santiago W 455.9 RESIDUAL HEMORRHOIDAL SKIN TAGS 04/13/2017 Jimmie De Santiago 562.12 DIVERTICULOSIS OF COLON WITH HEMORRHAGE 04/13/2017 Jimmie De Santiago A 789.04 ABDOMINAL PAIN, LEFT LOWER QUADRANT 04/13/2017 Jimmie De Santiago K57.30 DVRTCLOS OF LG INT W/O PERFORATION OR ABSCESS W/O BLEEDING 04/13/2017 Jimmie De Santiago K64.4 RESIDUAL HEMORRHOIDAL SKIN TAGS 04/13/2017 Jimmie De Santiago R10.32 LEFT LOWER QUADRANT PAIN Procedures Code Description Performed By Performed On 96.07 10/21/2013 Results Test Result Range Urinalysis - 01/31/17 11:08 Icotest N/A Negative Urine Volume Urine Volume Sufficient (10mL) Urine Yeast No Yeast present Urine-Appearance Clear Clear Urine-Bacteria Trace Urine-Bilirubin Negative Negative Urine-Blood Trace-intact Negative Urine-Color Yellow Colorless-Lt. Yellow Urine-Epithelial Cells 0-5/HPF Urine-Glucose Negative Negative Urine-Ketones Trace Negative Urine-Leukocytes Trace Negative Urine-Mucus 1+ Urine-Nitrite Negative Negative Urine-Other Urine Saved if Culture Needed (48hrs from time of collection) Urine-pH 6.5 5-8.5 Urine-Protein Trace Negative Urine-RBC 0-2/HPF Urine-Specific [place] 1.010 1.000-1.030 Urine-WBC Nothing Seen on Microscopic Urobilinogen 0.2 E.U./dL 0.2-1.0 BMP - 01/31/17 11:39 Anion Gap 14 6-14 BUN 18 mg/dL 5-25 Calcium 9.2 mg/dL 8.3-10.4 Chloride 105 mmol/L 95-114 CO2 22 mEq/L 22-33 Creat 1.07 mg/dL 0.50-1.50 eGFR 50 mL/min/1.73m2 >59 Glucose 102 mg/dL 70-110 Osmo 287 280-295 Potassium 3.2 mmol/L 3.5-5.3 Sodium 138 mmol/L 134-148 CBC with Auto Diff - 01/31/17 11:40 Baso% 0.20 % 0.00-2.50 Eos 0.2 K/uL 0.0-0.7 Eos% 1.3 % 0.0-7.0 Hct 36.2 % 36.0-46.0 Hgb 12.2 g/dL 13.0-15.0 Lym 2.44 K/uL 0.60-3.40 Lym% 20.2 % 10.0-50.0 MCH 29.2 pg 27.0-31.0 MCHC 33.7 g/dL 32.0-36.0 MCV 86.6 fL 80.0-97.0 [place]% 12.3 % 0.0-12.0 MPV 8.5 fL 7.4-10.0 [place]% 66.0 % 37.0-80.0 Plt 254 K/uL 150-400 RBC 4.18 M/uL 3.60-5.00 RDW 13.4 % 11.6-14.8 WBC 12.05 K/uL 5.00-10.00 Luz Maria 7.95 K/uL 2.00-6.90 [place] 1.5 K/uL 0.0-0.9 Baso 0.0 K/uL 0.0-0.2 Urine Culture - 01/31/17 11:59 PRELIM CULTURE RESULTS <10,000 Gram Positive Mixed [id number] Skin Contaminant FINAL CULTURE RESULTS No Further Workup done MEDIA PLATED Setup at 12:10 on 01/31/2017 CULTURE SOURCE [id number]\ Urinalysis - 02/03/17 09:10 Icotest N/A Negative Urine Yeast Yeast Present Urine-Appearance Clear Clear Urine-Bacteria Trace Urine-Bilirubin Negative Negative Urine-Blood Trace-intact Negative Urine-Color Yellow Colorless-Lt. Yellow Urine-Epithelial Cells 5-10/HPF Urine-Glucose Negative Negative Urine-Ketones 1+ Negative Urine-Leukocytes Negative Negative Urine-Nitrite Negative Negative Urine-Other Urine Saved if Culture Needed (48hrs from time of collection) Urine-pH 6.5 5-8.5 Urine-Protein Negative Negative Urine-RBC 5-10/HPF Urine-Specific [place] 1.015 1.000-1.030 Urine-WBC 2-5/HPF Urobilinogen 0.2 E.U./dL 0.2-1.0 [facility] - 02/04/17 05:28 Anion Gap 13 6-14 BUN 14 mg/dL 5-25 Calcium 8.5 mg/dL 8.3-10.4 Chloride 103 mmol/L 95-114 CO2 24 mEq/L 22-33 Creat 1.00 mg/dL 0.50-1.50 eGFR 54 mL/min/1.73m2 >59 Glucose 119 mg/dL 70-110 Osmo 283 280-295 Potassium 3.9 mmol/L 3.5-5.3 Sodium 136 mmol/L 134-148 Protime - 04/10/17 11:30 INR 1.0 1.0-4.0 Protime 12.0 Sec 9.9-12.8 Encounters ACCT No. Visit Date/Time Discharge Status Pt. Type Provider Facility Loc./Unit Complaint [id number] 01/31/2016 14:18:00 01/31/2016 23:59:59 CLS Outpatient KATELYN JI DO [facility] RAD [id number] 01/27/2016 10:55:00 01/27/2016 13:26:00 DIS Emergency STAN MENENDEZ APRN [facility] ER [id number] 12/20/2015 11:57:00 12/20/2015 12:56:00 DIS Outpatient LIV BURROUGHS MD [facility] CARD [id number] 09/24/2015 10:49:00 09/24/2015 12:13:00 DIS Outpatient LIV BURROUGHS MD [facility] CARD [id number] 09/22/2015 15:03:00 09/22/2015 23:59:59 CLS Outpatient LIV BURROUGHS MD [facility] RAD [id number] 04/29/2015 09:51:00 04/29/2015 23:59:59 CLS Outpatient LIV BURROUGHS MD [facility] RAD [id number] 04/16/2015 13:45:00 04/16/2015 14:52:00 DIS Outpatient LIV BURROUGHS MD [facility] REHAB [id number] 02/05/2015 12:00:00 02/05/2015 23:59:59 CLS Outpatient LIV BURROUGHS MD [facility] RAD [id number] 01/27/2015 14:32:00 01/27/2015 23:59:59 CLS Outpatient KATELYN JI DO [facility] RAD [id number] 04/07/2014 19:58:00 04/08/2014 06:40:00 DIS Outpatient ANDRIY CUNNINGHAM MD [facility] SLEEP [id number] 10/21/2013 11:00:00 10/21/2013 20:05:00 DIS Inpatient KATELYN JI DO [facility] SURGICAL [id number] 10/01/2013 15:26:00 10/01/2013 23:59:59 CLS Outpatient KATELYN JI DO [facility] RAD [id number] 01/31/2016 14:19:00 Document Registration [id number] 09/05/2012 13:56:00 Document Registration [id number] 09/03/2012 14:42:00 Document Registration [id number] 08/24/2011 13:04:00 Document Registration [id number] 10/05/2010 06:28:00 Document Registration [id number] 08/23/2010 11:08:00 Document Registration [id number] 04/13/2017 00:00:00 04/13/2017 13:00:00 DIS Outpatient Jimmie De Santiago [id number] 04/10/2017 11:00:00 04/10/2017 23:59:00 DIS Outpatient Jimmie De Santiago [id number] 02/03/2017 08:28:00 02/04/2017 10:35:00 DIS Outpatient [facility] ER [id number] 01/31/2017 10:19:00 01/31/2017 23:59:00 DIS Outpatient [facility] [address] [id number] 01/31/2017 11:06:00 01/31/2017 12:18:00 DIS Outpatient Ronit Foley [facility] [place] [id number] 02/03/2017 09:01:28 Document Registration
[2018-01-16 04:52] LABS: BASOPHILS % (AUTO) 0 % (0-10); EOSINOPHILS # (AUTO) 0.2 10^3/uL (0.0-0.3); EOSINOPHILS % (AUTO) 2 % (0-10); HEMATOCRIT 41 % (35-52); HEMOGLOBIN 13.6 G/DL (11.5-16.0); LYMPHOCYTES # (AUTO) 3.5 X 10^3 (1.0-4.0); LYMPHOCYTES % (AUTO) 32 % (12-44); MEAN CORPUSCULAR HEMOGLOBIN 29 PG (25-34); MEAN CORPUSCULAR HGB CONC 34 G/DL (32-36); MEAN CORPUSCULAR VOLUME 87 FL (80-99); MEAN PLATELET VOLUME 8.8 FL (7.4-10.4); MONOCYTES # (AUTO) 0.4 X 10^3 (0.0-1.0); MONOCYTES % (AUTO) 4 % (0-12); NEUTROPHILS # (AUTO) 6.8 X 10^3 (1.8-7.8); NEUTROPHILS % (AUTO) 62 % (42-75); PLATELET COUNT 348 10^3/uL (130-400); RED BLOOD COUNT 4.65 10^6/uL (4.35-5.85); RED CELL DISTRIBUTION WIDTH 14.2 % (10.0-14.5)
[2018-01-16 05:17] LABS: ALANINE AMINOTRANSFERASE 19 U/L (0-55); ALBUMIN 3.8 GM/DL (3.2-4.5); ALKALINE PHOSPHATASE 71 U/L (40-136); BILIRUBIN,TOTAL 0.4 MG/DL (0.1-1.0); BUN/CREATININE RATIO 20; CALCIUM 9.5 MG/DL (8.5-10.1); CARBON DIOXIDE 18 MMOL/L (21-32); CHLORIDE 109 MMOL/L (98-107); CREATININE SERUM 1.29 MG/DL (0.60-1.30); GFR ESTIMATED 40; GLUCOSE 157 MG/DL (70-105); MAGNESIUM 2.6 MG/DL (1.8-2.4); SODIUM 140 MMOL/L (135-145); TOTAL PROTEIN 7.5 GM/DL (6.4-8.2)
[2018-01-16] MEDS ORDERED: DIATRIZOATE MEGLUM/SODIUM 37% 120 ML (GASTROGRAFIN) PO ONE (05:30)
[2018-01-16] MEDS: ONDANSETRON 4 MG/2 ML (SDV) Z0FRAN ONE ×2 (06:27→06:28)
[2018-01-16] MEDS ORDERED: ONDANSETRON 4 MG/2 ML (SDV) Z0FRAN IVP ONE (06:30)
--- NOTE | 2018-01-16 08:09 | Diagnostic Imaging Report ---
PROCEDURE: CT abdomen and pelvis without contrast. TECHNIQUE: Multiple contiguous axial images were obtained through the abdomen and pelvis without the use of intravenous contrast. INDICATION: Weakness and bloating. Comparison is made with prior CT from 10/21/2013. The lung bases are clear. Large hiatal hernia is again noted. No discrete liver mass is identified. The gallbladder is unremarkable. The pancreas and spleen are unremarkable. No adrenal mass is identified. No renal calculi or hydronephrosis is identified. Aorta is nonaneurysmal. The small bowel loops are nondistended. There is moderate stool in the left colon. There does appear to be significant sigmoid diverticulosis. There is suggestion of mild perisigmoidal inflammatory stranding and questionable wall thickening, suspicious for acute diverticulitis. There is no free fluid or fluid collection identified. No free air is identified. A calcified mass in the pelvis on the right side is again noted, perhaps a calcified fibroid. IMPRESSION: 1. Large ericka hernia. 2. Diverticulosis as well as mild sigmoid wall thickening and perisigmoidal and inflammatory stranding suggestive of acute diverticulitis. No bowel obstruction or abscess formation is identified. No other significant abnormality is detected. Dictated by: Dictated on workstation # [id number]
[2018-01-16] MEDS ORDERED: METR500T PO (08:21)
[2018-01-16] MEDS ORDERED: ONDA4TAB8 PO (08:21)
[2018-01-16] MEDS ORDERED: CIPR-225 PO (08:21)
[2018-01-16 08:32] VITALS: BP 94/60
[2018-01-16 08:33] LABS: BILIRUBIN,URINE NEGATIVE (NEGATIVE); CLARITY,URINE CLEAR; COLOR,URINE YELLOW; GLUCOSE, URINE (UA) NEGATIVE (NEGATIVE); KETONES,URINE NEGATIVE (NEGATIVE); LEUKOCYTE ESTERASE ,URINE 1+ (NEGATIVE); NITRITE,URINE NEGATIVE (NEGATIVE); PH,URINE 5 (5-9); PROTEIN,URINE 2+ (NEGATIVE); UROBILINOGEN,URINE NORMAL (NORMAL)
[2018-01-16 08:49] LABS: AMORPHOUS SEDIMENT,UR FEW AMOR URATES /LPF; BACTERIA,URINE TRACE /HPF; GRANULAR CASTS,URINE RARE /LPF; RBC,URINE RARE /HPF; RENAL EPITHELIAL CELLS,URINE RARE /HPF; SQUAMOUS EPITHELIAL CELL,UR 0-2 /HPF; WBC,URINE 0-2 /HPF
[2018-01-16 08:50] LABS: WHITE BLOOD CELL CASTS, URINE RARE /LPF
== END 2018-01-16 08:32 | disposition home or self-care (01) ==
LOC: EDUNIT# 04:33 → ER 04:34
DX: R55 Syncope and collapse (principal); K57.92 Diverticulitis of intestine, part unspecified, without perforation or abscess without bleeding; E86.0 Dehydration; K59.00 Constipation, unspecified; E78.00 Pure hypercholesterolemia, unspecified; I10 Essential (primary) hypertension; F41.9 Anxiety disorder, unspecified; F32.9 Major depressive disorder, single episode, unspecified; Z87.19 Personal history of other diseases of the digestive system; Z90.49 Acquired absence of other specified parts of digestive tract; Z98.890 Other specified postprocedural states; Z88.6 Allergy status to analgesic agent; Z88.8 Allergy status to other drugs, medicaments and biological substances; Z79.82 Long term (current) use of aspirin
CPT/HCPCS: 36415; 74176; 80053; 81000; 83735; 84484; 85025; 93005; 96361; 96374

== ENCOUNTER 2021-04-03 16:08 | Emergency (ER) | payer MEDICARE, OTHER ==
[~2021-04-03] VITALS: Ht 165 cm; Wt 92.0 kg
[~2021-04-03 16:08] MED LIST changes: +CIPR-225 PO; +METR500T PO; +ONDA4TAB8 PO
--- NOTE | 2021-04-03 16:28 | ED Integumentary General ---
General Chief Complaint: Bite-Animal/Human/Insect Stated Complaint: BEE STING Source: patient Exam Limitations: no limitations History of Present Illness Date Seen by Provider: Apr 03, 2021 Time Seen by Provider: 16:13 Initial Comments Patient is a 75-year-old female who presents to the emergency department with multiple "yellowjacket stings". Patient states she was out in her garden and went to pull some weeds and must have disturbed a nest of yellow jackets. Patient states she was swarmed. She was stung all over her head, neck, chest extremities and back. Patient states that she has intense itching. She took 2 Benadryl tablets at home before calling the ambulance. She denies chest pain or shortness of breath. No nausea, vomiting, diarrhea. Patient states she has a history of hypertension and borderline diabetes. Her primary care doctor is Dr. Ji. She continues to complain of itching. On arrival she is not tachycardic, her blood pressure is good. Oxygen saturations are 97% on room air. All other review of systems reviewed and negative except as stated. Timing/Duration: just prior to arrival (1600) Severity: mild Location: face, torso, extremities Possible Cause: insect sting Modifying Factors: improves with other (oral steroids) Allergies and Home Medications Allergies Coded Allergies: cyclobenzaprine (Verified Allergy, Unknown, 05/14/07) morphine (Verified Allergy, Unknown, 08/10/08) Home Medications Alprazolam 0.25 Mg Tablet, 0.5 TAB PO Q6H PRN for ANXIETY, (Reported) TAKES 1/2 (0.25MG) TABLET NEEDED FOR ANXIETY Aspirin 81 Mg Tablet, 81 MG PO HS, (Reported) Benazepril Hcl 10 Mg Tablet, 10 MG PO HS, (Reported) Calcium Carbonate/Vitamin D3 1 Tab Tablet, 1 TAB PO DAILY, (Reported) Cefuroxime Axetil 250 Mg Tablet, 250 MG PO BID Prescribed by: STAN MENENDEZ on 01/27/16 1319 Cholecalciferol 1,000 Unit Capsule, 1,000 UNIT PO DAILY, (Reported) Ciprofloxacin HCl 500 Mg Tablet, 500 MG PO BID Prescribed by: KEVIN TEMPLE on 01/16/18 0821 Diphenhydramine Hcl 25 Mg Tablet, 50 MG PO HS PRN for SLEEP, (Reported) TAKES 2 (25MG) TABLETS NEEDED FOR SLEEP Ginkgo Biloba Extract 120 Mg Capsule, 120 MG PO DAILY, (Reported) Lovastatin 20 Mg Tablet, 20 MG PO HS, (Reported) Meloxicam 15 Mg Tablet, 15 MG PO DAILY, (Reported) Metronidazole 500 Mg Tablet, 500 MG PO QID Prescribed by: KEVIN TEMPLE on 01/16/18820 Multivitamins 1 Ea Tablet, 1 TAB PO DAILY, (Reported) Ondansetron 4 Mg Tab.rapdis, 4 MG PO Q4H Prescribed by: KEVIN TEMPLE on 01/16/18820 Potassium Chloride 10 Meq Capcr, 10 MEQ PO DAILY, (Reported) Prednisone 50 Mg Tab, 50 MG PO DAILY Prescribed by: DIPIKA VENTURA on 04/03/21 162 Sertraline Hcl 100 Mg Tablet, 100 MG PO DAILY, (Reported) Triamterene/Hctz 1 Each Capsule, 1 CAP PO DAILY, (Reported) 37.5-25MG CAPSULE Patient Home Medication List Home Medication List Reviewed: Yes Review of Systems Review of Systems Constitutional: see HPI EENTM: no symptoms reported Respiratory: no symptoms reported Cardiovascular: no symptoms reported Gastrointestinal: no symptoms reported Genitourinary: no symptoms reported Musculoskeletal: no symptoms reported Skin: pruritus All Other Systems Reviewed Negative Unless Noted: Yes Past Nigblss-Ekicze-Njcoty Hx Immunizations Up To Date Tetanus Booster (TDap): Unknown PED Vaccines UTD: No Seasonal Allergies Seasonal Allergies: No Past Medical History Surgeries: Yes (PILEOCYST AND RECTAL FISTULA, RIGHT BREAST BIOPSY, esophagus dilation, knee) Appendectomy, Orthopedic Respiratory: Yes Sleep Apnea Currently Using CPAP: No Currently Using BIPAP: Yes Cardiac: Yes High Cholesterol, Hypertension Neurological: No Reproductive Disorders: Yes Female Reproductive Disorders: 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 Sexually Transmitted Disease: No HIV/AIDS: No Genitourinary: No Gastrointestinal: Yes Hiatal Hernia Musculoskeletal: Yes Degenerate Disk Disease, Arthritis, Chronic Back Pain Endocrine: No HEENT: No Cancer: Yes Breast Psychosocial: Yes Anxiety, Depression Integumentary: No Blood Disorders: No Physical Exam Vital Signs Vital Signs - First Documented 04/03/21 16:11 Temp 35.5 Pulse 82 Resp 18 B/P (MAP) 145/99 (114) Pulse Ox 96 O2 Delivery Room Air Capillary Refill : General Appearance: no apparent distress HEENT: PERRL/EOMI Neck: full range of motion Cardiovascular: regular rate, rhythm, other (good distal pulses) Respiratory: lungs clear, normal breath sounds, no respiratory distress, no accessory muscle use Gastrointestinal: non tender, soft Extremities: non-tender, normal inspection Neurologic/Psychiatric: alert, normal mood/affect, oriented x 3 Skin: other (multiple sites to the upper extremities, right side of the neck and flank and back consistent with wasp stings. erythema and warmth.) Progress/Results/Core Measures Results/Orders Lab Results Laboratory Tests Test 04/03/21 16:34 Range/Units Glucometer 160 H 70-110 MG/DL My Orders Orders - DIPIKA VENTURA MD Accucheck Stat ONCE (04/03/21 16:21) Famotidine Injection (Pepcid Injection) (04/03/21 16:30) Prednisone Tablet (Deltasone Tablet) (04/03/21 16:30) Medications Given in ED Current Medications Medications Dose Ordered Sig/Vidal Route Start Time Stop Time Status Last Admin Dose Admin Famotidine 20 mg ONCE ONCE IVP 04/03/21 16:30 04/03/21 16:31 DC 04/03/21 16:31 20 MG Prednisone 50 mg ONCE ONCE PO 04/03/21 16:30 04/03/21 16:31 DC 04/03/21 16:28 50 MG Vital Signs/I&O 04/03/21 16:11 Temp 35.5 Pulse 82 Resp 18 B/P (MAP) 145/99 (114) Pulse Ox 96 O2 Delivery Room Air Progress Progress Note : Time: 17:38 Progress Note Patient monitored about an hour and a half, continues to have stable vital signs. Complains of "burning" where the stings are. Prescribed Pepcid, Benadryl and prednisone. Return precautions given. She verbalizes understanding and is agreeable with plan of care. She plans to put Aspercreme on the more sore spots. All questions are sought and answered. Patient is stable for discharge. Departure Impression Primary Impression: Insect stings Qualified Codes: T63.481A - Toxic effect of venom of other arthropod, accidental (unintentional), initial encounter Disposition: 01 HOME, SELF-CARE Condition: Stable Departure-Patient Inst. Decision time for Depature: 16:26 Referrals: LAVON IJ DO (PCP/Family) Primary Care Physician Patient Instructions: Insect Bites and Stings ED Add. Discharge Instructions: continue to take benadryl 1-2 tablets every 6 hours as needed for itching. take over the counter pepcid once a day 20mg for the next several days while you are taking benadryl. pepcid works with benadryl to block the histamine ( allergic) response. I have prescribed you some prednisone. take this daily for the next 4 days. If you develop worsening swelling, redness, fever or any other emergent, concerning symptoms, please come back to the emergency department for re- evaluation. All discharge instructions reviewed with patient and/or family. Voiced understanding. Scripts Prednisone (Prednisone) 50 Mg Tab 50 MG PO DAILY for 4 Days, #4 TAB Prov: DIPIKA VENTURA MD 04/03/21 Copy Copies To 1: LAVON JI KATHRYN M MD Apr 03, 2021 16:28
[2021-04-03] MEDS ORDERED: PRD50T PO (16:29)
[2021-04-03] MEDS ORDERED: FAMOTIDINE 20MG/2ML IV (PEPCID) IVP ONE (16:30)
[2021-04-03] MEDS ORDERED: predniSONE 20 MG TAB PO ONE (16:30)
[2021-04-03 17:46] VITALS: BP 128/80
== END 2021-04-03 17:49 | disposition home or self-care (01) ==
LOC: EDUNIT# 16:08 → ER 16:10
DX: T63.481A Toxic effect of venom of other arthropod, accidental (unintentional), initial encounter (principal); G47.30 Sleep apnea, unspecified; I10 Essential (primary) hypertension; F41.9 Anxiety disorder, unspecified; F32.9 Major depressive disorder, single episode, unspecified; E78.00 Pure hypercholesterolemia, unspecified; R73.03 Prediabetes; Z79.82 Long term (current) use of aspirin; Z79.899 Other long term (current) drug therapy
CPT/HCPCS: 82947; 99283

== ENCOUNTER → 2021-08-02 | Outpatient (CLI) | payer MEDICARE, OTHER ==
[~2021-08-02] MED LIST changes: +PRD50T PO
--- NOTE | 2021-08-02 15:32 | Diagnostic Imaging Report ---
INDICATION: Postmenopausal COMPARISON: None FINDINGS: The bone mineral density of the spine, hips and the femoral necks was measured. The total T score for the spine is -0.6. This value is within normal limits. The total T score for the right hip is -1.0. This finding is at the lowest end of normal. The T score for the left hip is -1.1. This does indicate mild osteopenia. The T score for the left femoral neck is -1.5 and for the right -1.2. These values also fall within the range of osteopenia. AP Spine L1-L4: [BMD (g/cm2): 1.132] [T-Score: -0.6] [Z-Score: 0.3] [BMD Previous: 1.536] [BMD % Change: -26.3] LT Hip Neck: [BMD (g/cm2): 0.833] [T-Score: -1.5] [Z-Score: 0.0] LT Hip Total: [BMD (g/cm2):0.875] [T-Score:-1.1] [Z-Score: 0.2] [BMD Previous: 0.899] [BMD % Change: -2.7] RT Hip Neck: [BMD (g/cm2):0.869] [T-Score:-1.2] [Z-Score:0.3] RT Hip Total: [BMD (g/cm2):0.883] [T-score:-1.0] [Z-Score:0.3] [BMD Previous:0.868] [BMD % Change:1.7] *Indicates significant change from prior examination based on 95% confidence level. World Health Organization criteria for BMD interpretation classify patients as Normal (T-score at or above -1.0), Osteopenic (T-score between -1.0 and -2.5) or Osteoporotic (T-score at or below -2.5). LIMITATIONS AND MODIFICATION: None. FRACTURE RISK (FRAX SCORE): The ten year probability of (%): Major Osteoporotic Fracture: [11.8] Hip Fracture: [2.5] IMPRESSION: 1. The bone mineral density of the spine and the right hip is within normal limits but there is osteopenia of the left hip and both femoral necks. 2. See below National Osteoporosis Foundation guidelines on when to potentially initiate pharmacologic therapy. Based on the National Osteoporosis Foundation Guidelines, pharmacologic treatment should be initiated in any of the following, unless clinical conditions suggest otherwise: * Any patient with prior fragility fracture of the hip or vertebrae. A spine fracture indicates 5X risk for subsequent spine fracture and 2X risk for subsequent hip fracture. * Osteoporosis (T-score <-2.5). * Postmenopausal women and men age 50 and older with low bone mass/osteopenia (T-score between -1.0 and -2.5) by DXA and 10-year major osteoporotic fracture greater than 20% or a 10-year probability of hip fracture greater than 3%. These fracture risks are supplied above in the FRAX score, if applicable. * Clinician judgement and/or patient preferences may indicate treatment for people with 10-year fracture probabilities above or below these levels. Dictated by: Dictated on workstation # [id number]
== END ==
LOC: RAD 14:00
PROVIDERS: ATTEND Internal Medicine
DX: M85.89 Other specified disorders of bone density and structure, multiple sites (principal); M81.6 Localized osteoporosis [Lequesne]; Z78.0 Asymptomatic menopausal state
CPT/HCPCS: 77080

== ENCOUNTER 2022-08-13 17:20 | Observation (INO) | payer MEDICARE ==
[~2022-08-13] VITALS: Ht 162 cm; Wt 87.4 kg
[2022-08-13 18:12] LABS: BASOPHILS % (AUTO) 0 % (0-10); EOSINOPHILS # (AUTO) 0.1 10^3/uL (0.0-0.3); EOSINOPHILS % (AUTO) 1 % (0-10); HEMATOCRIT 38 % (35-52); HEMOGLOBIN 12.7 g/dL (11.5-16.0); LYMPHOCYTES # (AUTO) 0.7 10^3/uL (1.0-4.0); LYMPHOCYTES % (AUTO) 6 % (12-44); MEAN CORPUSCULAR HEMOGLOBIN 30 pg (25-34); MEAN CORPUSCULAR HGB CONC 33 g/dL (32-36); MEAN CORPUSCULAR VOLUME 90 fL (80-99); MEAN PLATELET VOLUME 8.9 fL (9.0-12.2); MONOCYTES # (AUTO) 0.7 10^3/uL (0.0-1.0); MONOCYTES % (AUTO) 6 % (0-12); NEUTROPHILS # (AUTO) 10.2 10^3/uL (1.8-7.8); NEUTROPHILS % (AUTO) 87 % (42-75); PLATELET COUNT 281 10^3/uL (130-400); WHITE BLOOD COUNT 11.8 10^3/uL (4.3-11.0)
[2022-08-13 18:15] LABS: CHLORIDE 103 MMOL/L (98-107); SODIUM 137 MMOL/L (135-145)
[2022-08-13 18:16] LABS: CALCIUM 9.3 MG/DL (8.5-10.1)
[2022-08-13 18:17] LABS: GLUCOSE 147 MG/DL (70-105); INR 1.1 (0.8-1.4); PROTHROMBIN TIME PATIENT 14.4 SEC (12.2-14.7); TOTAL PROTEIN 7.3 GM/DL (6.4-8.2)
[2022-08-13 18:18] LABS: CARBON DIOXIDE 22 MMOL/L (21-32)
[2022-08-13 18:19] LABS: BILIRUBIN,TOTAL 0.7 MG/DL (0.1-1.0)
[2022-08-13 18:21] LABS: ALKALINE PHOSPHATASE 222 U/L (40-136); CREATININE SERUM 1.12 MG/DL (0.60-1.30); GFR ESTIMATED 50
[2022-08-13 18:22] LABS: BUN/CREATININE RATIO 19
[2022-08-13 18:23] LABS: MAGNESIUM 1.9 MG/DL (1.6-2.4)
[2022-08-13 18:24] LABS: ALANINE AMINOTRANSFERASE 170 U/L (0-55); LIPASE 19 U/L (8-78)
[2022-08-13 18:28] LABS: BAND NEUTROPHILS 1 %; EOSINOPHILS % (MANUAL) 1 %; LYMPHOCYTES % (MANUAL) 4 %; MONOCYTES % (MANUAL) 7 %; NEUTROPHILS % (MANUAL) 87 %
[2022-08-13 18:29] LABS: RBC MORPH NORMAL
--- NOTE | 2022-08-13 18:31 | ED Fall/Injury ---
General Chief Complaint: General Problems/Pain Stated Complaint: WEAKNESS Nursing Triage Note: PT BROUGHT TO ED VIA [facility]. EMS ON ALS. 20G IN LEFT AC. PT REPORTS SHE FELL WHEN GOING TO TAKE OUT HER TRASH. HALF WAY BACK INTO HER HOUSE FROM THE ALLEY SHE FELL ONTO THE GRASS. DENIES LOC OR HITTING HER HEAD. PT CRAWLED INTO HER HOUSE TO CALL 911. PT REPORTS SHE BEGAN TO FEEL WEAK THIS MORNING. PT WAS SEEN AT [facility] DUE TO THIS, NO DX THERE. PT IS LAYING IN BED IN ROOM 05. CALL LIGHT WITHIN REACH. PT ORIENTED X'4. Source: patient, EMS Exam Limitations: no limitations History of Present Illness Date Seen by Provider: Aug 13, 2022 Time Seen by Provider: 17:50 Initial Comments 77-year-old female coming in via EMS from home after she was outside in the backyard, felt generally weak, fell down slowly to her left side of her hip. She slowly crawled into the house to call 911. Never did hit her head or pass out. She denies pain anywhere at this time including any joint, back, neck, head, chest, abdomen, etc. She is otherwise fairly healthy and lives alone. She does not take any blood thinners. Allergies and Home Medications Allergies Coded Allergies: cyclobenzaprine (Verified Allergy, Unknown, 05/14/07) morphine (Verified Allergy, Unknown, 08/10/08) Patient Home Medication List Home Medication List Reviewed: Yes Alprazolam (Xanax) 0.25 Mg Tablet, 0.5 TAB PO Q6H PRN for ANXIETY, (Reported) Entered as Reported by: MAU FISCHER on 05/14/07 1004 Aspirin (Aspirin) 81 Mg Tablet, 81 MG PO HS, (Reported) Entered as Reported by: MAU FISCHER on 05/14/07 1001 Benazepril Hcl (Lotensin 10 Mg) 10 Mg Tablet, 10 MG PO HS, (Reported) Entered as Reported by: MAU FISCHER on 05/14/07 1003 Calcium Carbonate/Vitamin D3 (Brad-600 W/Vit D Tablet) 1 Tab Tablet, 1 TAB PO DAILY, (Reported) Entered as Reported by: MAU FISCHER on 05/14/07 1002 Cefuroxime Axetil (Ceftin) 250 Mg Tablet, 250 MG PO BID Prescribed by: STAN MENENDEZ on 01/27/16 1319 Cholecalciferol (Vitamin D3) 1,000 Unit Capsule, 1,000 UNIT PO DAILY, (Reported) Entered as Reported by: RUDDY BRADY on 10/21/13 1435 Ciprofloxacin HCl (Cipro) 500 Mg Tablet, 500 MG PO BID Prescribed by: KEVIN TEMPLE on 01/16/18 08 Diphenhydramine Hcl (Diphenhydramine 25 Mg) 25 Mg Tablet, 50 MG PO HS PRN for SLEEP, (Reported) Entered as Reported by: RUDDY BRADY on 10/21/13 1445 Ginkgo Biloba Extract (Ginkgo Biloba) 120 Mg Capsule, 120 MG PO DAILY, (Reported) Entered as Reported by: RUDDY BRADY on 10/21/13 1445 Lovastatin (Lovastatin 20 Mg) 20 Mg Tablet, 20 MG PO HS, (Reported) Entered as Reported by: RUDDY BRADY on 10/21/13 1431 Meloxicam (Meloxicam) 15 Mg Tablet, 15 MG PO DAILY, (Reported) Entered as Reported by: RUDDY BRADY on 10/21/13 1431 Metronidazole (Flagyl) 500 Mg Tablet, 500 MG PO QID Prescribed by: KEVIN TEMPLE on 01/16/18 08 Multivitamins (Vitamins (Multi-Vit)) 1 Ea Tablet, 1 TAB PO DAILY, (Reported) Entered as Reported by: MAU FISCHER on 05/14/07 0959 Ondansetron (Zofran Odt) 4 Mg Tab.rapdis, 4 MG PO Q4H Prescribed by: KEVIN TEMPLE on 01/16/18 08 Potassium Chloride (Klor-Con) 10 Meq Capcr, 10 MEQ PO DAILY, (Reported) Entered as Reported by: MAU FISCHER on 05/14/07 0958 Prednisone (Prednisone) 50 Mg Tab, 50 MG PO DAILY Prescribed by: DIPIKA VENTURA on 04/03/21 1629 Sertraline Hcl (Sertraline Hcl) 100 Mg Tablet, 100 MG PO DAILY, (Reported) Entered as Reported by: RUDDY BRADY on 10/21/13 1435 Triamterene/Hctz (Dyazide 37.5-25 Capsule) 1 Each Capsule, 1 CAP PO DAILY, (Reported) Entered as Reported by: RUDDY BRADY on 10/21/13 1431 Review of Systems Review of Systems Constitutional: No fever Eyes: No Symptoms Reported Ears, Nose, Mouth, Throat: no symptoms reported Respiratory: no symptoms reported Cardiovascular: no symptoms reported Gastrointestinal: no symptoms reported Genitourinary: no symptoms reported Musculoskeletal: no symptoms reported Skin: no symptoms reported Psychiatric/Neurological: Weakness All Other Systems Reviewed Negative Unless Noted: Yes Past Weihzkc-Bkbbgo-Iwxcro Hx Patient Social History Tobacco Use?: No Substance use?: No Alcohol Use?: No Pt feels they are or have been: No Immunizations Up To Date Tetanus Booster (TDap): Unknown PED Vaccines UTD: No First/Initial COVID19 Vaccinat: October COVID19 Vaccination Leobardo: October COVID19 Vaccination Date: OCTOBER Seasonal Allergies Seasonal Allergies: No Past Medical History Surgery/Hospitalization HX: PMH;DENIES. SURGERY;BILATERAL KNEE REPLACEMENT, APPENDIX, RECTAL FISTULA, AND STOMACH RESTRUCTURE. 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 0.0oz. 90.412227if; 30.00 BMI Method:Stated General Appearance: WD/WN, no apparent distress HEENT: PERRL/EOMI, normal ENT inspection, pharynx normal Neck: non-tender, full range of motion, supple, normal inspection Cardiovascular: regular rate, rhythm, no edema, no murmur Respiratory: chest non-tender, lungs clear, normal breath sounds, no respiratory distress, no accessory muscle use Gastrointestinal: normal bowel sounds, non tender, soft; No distended, No guarding, No rebound Back: normal inspection, no CVA tenderness, no vertebral tenderness Extremities: normal range of motion, non-tender, normal inspection, no pedal edema, no calf tenderness, normal capillary refill 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7 11.5-16.0 g/dL Hematocrit 38 35-52 % Mean Corpuscular Volume 90 80-99 fL Mean Corpuscular Hemoglobin 30 25-34 pg Mean Corpuscular Hemoglobin Concent 33 32-36 g/dL Red Cell Distribution Width 13.4 10.0-14.5 % Platelet Count 281 130-400 10^3/uL Mean Platelet Volume 8.9 L 9.0-12.2 fL Immature Granulocyte % (Auto) 0 % Neutrophils (%) (Auto) 87 H 42-75 % Lymphocytes (%) (Auto) 6 L 12-44 % Monocytes (%) (Auto) 6 0-12 % Eosinophils (%) (Auto) 1 0-10 % Basophils (%) (Auto) 0 0-10 % Neutrophils # (Auto) 10.2 H 1.8-7.8 10^3/uL Lymphocytes # (Auto) 0.7 L 1.0-4.0 10^3/uL Monocytes # (Auto) 0.7 0.0-1.0 10^3/uL Eosinophils # (Auto) 0.1 0.0-0.3 10^3/uL Basophils # (Auto) 0.0 0.0-0.1 10^3/uL Immature Granulocyte # (Auto) 0.1 0.0-0.1 10^3/uL Neutrophils % (Manual) 87 % Lymphocytes % (Manual) 4 % Monocytes % (Manual) 7 % Eosinophils % (Manual) 1 % Band Neutrophils 1 % Blood Morphology Comment NORMAL Prothrombin Time 14.4 12.2-14.7 SEC INR Comment 1.1 0.8-1.4 Activated Partial Thromboplast Time 26 24-35 SEC Sodium Level 137 135-145 MMOL/L Potassium Level 4.0 3.6-5.0 MMOL/L Chloride Level 103 98-107 MMOL/L Carbon Dioxide Level 22 21-32 MMOL/L Anion Gap 12 5-14 MMOL/L Blood Urea Nitrogen 21 H 7-18 MG/DL Creatinine 1.12 0.60-1.30 MG/DL Estimat Glomerular Filtration Rate 50 BUN/Creatinine Ratio 19 Glucose Level 147 H 70-105 MG/DL Calcium Level 9.3 8.5-10.1 MG/DL Corrected Calcium 9.3 8.5-10.1 MG/DL Magnesium Level 1.9 1.6-2.4 MG/DL Total Bilirubin 0.7 0.1-1.0 MG/DL Aspartate Amino Transf (AST/SGOT) 224 H 5-34 U/L Alanine Aminotransferase (ALT/SGPT) 170 H 0-55 U/L Alkaline Phosphatase 222 H 40-136 U/L Total Creatine Kinase 106 29-168 U/L Troponin I < 0.028 <0.028 NG/ML B-Type Natriuretic Peptide 80.7 <100.0 PG/ML Total Protein 7.3 6.4-8.2 GM/DL Albumin 4.0 3.2-4.5 GM/DL Lipase 19 8-78 U/L Influenza Type A (RT-PCR) Not Detected Not Detecte Influenza Type B (RT-PCR) Not Detected Not Detecte SARS-CoV-2 RNA (RT-PCR) Not Detected Not Detecte D-Dimer 2.57 H 0.00-0.49 UG/ML Urine Color YELLOW Urine Clarity CLEAR Urine pH 6.0 5-9 Urine Specific Davis 1.020 1.016-1.022 Urine Protein NEGATIVE NEGATIVE Urine Glucose (UA) NEGATIVE NEGATIVE Urine Ketones NEGATIVE NEGATIVE Urine Nitrite NEGATIVE NEGATIVE Urine Bilirubin NEGATIVE NEGATIVE Urine Urobilinogen 0.2 < = 1.0 MG/DL Urine Leukocyte Esterase NEGATIVE NEGATIVE Urine RBC (Auto) 1+ H NEGATIVE Urine RBC 10-25 H /HPF Urine WBC NONE /HPF Urine Squamous Epithelial Cells 2-5 /HPF Urine Crystals NONE /LPF Urine Bacteria NEGATIVE /HPF Urine Casts NONE /LPF Urine Mucus NEGATIVE /LPF Urine Culture Indicated NO My Orders Orders - HEBER HURT MD Cbc With Automated Diff (08/13/22 18:06) Comprehensive Metabolic Panel (08/13/22 18:06) Lipase (08/13/22 18:06) Magnesium (08/13/22 18:06) Protime With Inr (08/13/22 18:06) Partial Thromboplastin Time (08/13/22 18:06) Troponin I Agatha (08/13/22 18:06) Ua Culture If Indicated (08/13/22 18:06) Influenza A And B By Pcr (08/13/22 18:06) Ct Head/Cervical Spine Wo (08/13/22 18:06) Ed Iv/Invasive Line Start (08/13/22 18:06) Chest 1 View, Ap/Pa Only (08/13/22 18:06) Ekg Tracing (08/13/22 18:06) Covid 19 Inhouse Test (08/13/22 18:06) Ekg Tracing (08/13/22 18:06) O2 (08/13/22 18:06) Monitor-Rhythm Ecg Trace Only (08/13/22 18:06) Manual Differential (08/13/22 17:36) Bnp Agatha (08/13/22 18:43) Ceftriaxone 1 Gm Pre-Mix (Rocephin 1 Gm (08/13/22 18:47) Azithromycin Tablet (Zithromax Tablet) (08/13/22 19:00) Fibrin Degradation Products (08/13/22 18:49) Creatine Kinase (08/13/22 19:12) Iohexol Injection (Omnipaque 350 Mg/Ml 1 (08/13/22 19:15) Di Iv Start (Assessment) .IV start (08/13/22 19:14) Received Contrast (Hold Metformin- Contr (08/13/22 19:15) Ns (Ivpb) (Sodium Chloride 0.9% Ivpb Bag (08/13/22 19:15) Ct Ilene Chest/Noang Abd-Pelv W (08/13/22 19:12) Catheter(Urinary) Insert & Ass 15 (08/13/22 19:17) Ed Admission (Communication) (08/13/22 20:47) Medications Given in ED Current Medications Medications Dose Ordered Sig/Vidal Route Start Time Stop Time Status Last Admin Dose Admin Azithromycin 500 mg ONCE ONCE PO 08/13/22 19:00 08/13/22 19:01 DC 08/13/22 19:46 500 MG Iohexol 100 ml ONCE ONCE IV 08/13/22 19:15 08/13/22 19:16 DC 08/13/22 19:18 77 ML Sodium Chloride 100 ml ONCE ONCE IV 08/13/22 19:15 08/13/22 19:16 DC 08/13/22 19:19 80 ML Vital Signs/I&O 08/13/22 17:22 Pulse 85 Resp 18 B/P (MAP) 114/55 (74) Pulse Ox 94 O2 Delivery Room Air Blood Pressure Mean: 74 Progress Progress Note : Progress Note 77-year-old female presenting for general weakness after a fall. Patient was found to be hypoxic on arrival here placed on 2 L oxygen. I try to titrate her oxygen down, her oxygen continued to go down to the mid 80s. Lungs sounded clear, exam otherwise unremarkable with no external signs of trauma. CT head and cervical spine ordered initially due to the fall and were negative for acute findings. Chest x-ray without acute findings. D-dimer elevated so the patient get a CTA of her chest. I did CT abdomen pelvis due to the significantly e levated liver enzymes to assess for any type of mass versus trauma such as fracture. These were negative for acute findings such as PE, pneumonia, or other concerns. I contacted Dr. Ji given the hypoxia, the patient will be admitted under observation status for further evaluation and management. Initially on arrival with the hypoxia and weakness she was given ceftriaxone margarita thromycin for potential infection. Flu and COVID testing negative. EKG with no ischemic changes. Troponin negative. Initial ECG Impression Date: Aug 13, 2022 Initial ECG Impression Time: 18:33 Initial ECG Rate: 76 Initial ECG Rhythm: Normal Sinus Comment Narrow QRS, normal axis, no STEMI Diagnostic Imaging Diagonstic Imaging: Xray (chest), CT (head and cervical spine, CTA chest, CT abd/pelvis) Comments [facility] [place], [place] NAME: RADHA DAVE [facility] REC#: [id number] PT STATUS: REG ER : 1945 PHYSICIAN: HEBER HURT MD ADMIT DATE: 08/13/22/ER Draft Date of Exam:08/13/22 CT HEAD/CERVICAL SPINE WO PROCEDURE: CT head and CT cervical spine without contrast. TECHNIQUE: Multiple contiguous axial images were obtained through the brain and cervical spine without the use of intravenous contrast. Sagittal and coronal reformations through the cervical spine were then performed. Auto Exposure Controls were utilized during the CT exam to meet ALARA standards for radiation dose reduction. DATE: August 13, 2022. COMPARISON: None. INDICATION: 77-year-old female, injury. Head and neck pain. FINDINGS: There is no identified a skull fracture. The ventricles and cerebral spinal fluid spaces are of normal size and configuration for the patient's age. There is no mass effect or midline shift. There is no acute intracranial hemorrhage. There is no abnormal extra-axial fluid collection. The visualized portions of the paranasal sinuses, mastoid air cells and middle ears are well aerated. There is no identified facet joint subluxation or dislocation. There are multilevel facet degenerative changes of the cervical spine. There is grade 1 anterolisthesis of C2 on C3 and also of C3 on C4 and C4 on C5. There is severe disc height loss at C4-C5, C5-C6 and C6-C7 with posterior disc osteophyte complexes. There is arthritis at the C1-C2 articulation. There are well-corticated chronic long-standing areas of ossification superior to the C1-C2 articulation at its anterior aspect. CT is limited for assessment of disc pathology as well as additional non-bony causes of pathology in the spinal canal. There is no identified acute fracture of the cervical spine. The visualized portions of the lung apices are clear. IMPRESSION: 1. No identified acute intracranial abnormality. 2. No identified acute fracture of the cervical spine. 3. Multilevel advanced degenerative changes of the cervical spine, as above. Dictated on workstation # [id number] Dict: 08/13/22 1824 Trans: 08/13/[address] [facility] [id number] Interpreted by: JOCELIN STUART MD Electronically signed by: [email or web address]&studyUID=[id number]&cfajinLXG=[id number] 0&TYlbjCwdhrg=[id number]&TUisjRfdrigl=[id number]&ACpajTxmlkofHKL=[id number] 1&MOEhx=[id number]&&DDSeriesType=0&data Source=VCPX&DDDataSource=VCPX&Source=SNA&DDSopClassUid=[id number] &DDFrameOfRef=&DDModality=CR&DDSeriesIUID=[id number]&DDFirstSOPInstanceUID=[id number] [facility], [place] NAME: RADHA DAVE [facility] REC#: [id number] PT STATUS: REG ER : 1945 PHYSICIAN: HEBER HURT MD ADMIT DATE: 08/13/22/ER Draft Date of Exam:08/13/22 CT ILENE CHEST/NOANG ABD-PELV W Procedure: CTA chest, abdomen and pelvis. Technique: Thin axial sections through the chest, abdomen and pelvis are obtained following intravenous contrast bolus. Multiplanar MIP images were reconstructed and reviewed. All CT scans use one or more of the following dose optimizing techniques: automated exposure control, MA and/or KvP adjustment based on patient size and exam type or iterative reconstruction. Date: August 13, 2022. Indication: 77-year-old female, hypoxia, weakness. Abdominal pain. Comparison: CT abdomen and pelvis January 16, 2018. Findings: There is respiratory motion artifact. There are linear opacities in the lungs most likely reflecting multifocal atelectasis. There is no identified pneumothorax. There is no sizable pleural effusion. The more central airways are patent. There is no identified pulmonary embolus. The heart is not enlarged. There is no identified pericardial effusion. There are atherosclerotic calcifications. There is no identified abnormally enlarged mediastinal, hilar or axillary lymph node which meets CT size criteria for adenopathy. There is a large hiatal hernia. The liver is unremarkable in size and contour. There is moderate bilateral intrahepatic bile duct dilation. The common bile duct measures up to 9 mm in diameter which is very near upper limits of normal for patient age. There is no definite gallstone. There is no evidence of acute cholecystitis. The main pancreatic duct is not abnormally dilated. Unremarkable appearance of the pancreatic parenchyma. The spleen is normal in size. The adrenal glands are unremarkable. There is a 3 mm low-attenuation right renal lesion too small to characterize. The urinary collecting systems are not distended. There is no generalized wall thickening of the urinary bladder. There is a peripherally calcified mass in the region of the right adnexa near the right posterolateral aspect of the urinary bladder on axial image 137 measuring 5.6 x 4.0 cm in axial extent. There is diverticulosis without evidence of acute diverticulitis. There are sutures in the region of the cecum. There is no evidence to suggest acute appendicitis. There is a hernia defect in the left abdomen containing small bowel segments without associated obstruction or other complication. This is not extending beyond the anterior abdominal wall musculature. There are atherosclerotic calcifications. There is no identified abnormally enlarged lymph node in the abdomen or pelvis meeting CT size criteria for adenopathy. There are multilevel degenerative changes of the spine. There is grade 2 anterolisthesis of L5 on S1. 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 Impression: 1. No identified pulmonary embolus or other acute cardiopulmonary abnormality. 2. Peripherally calcified mass in the right adnexa, which is unchanged since at least 2018, most suggestive of benign etiology. 3. Hernia type defect in the left anterior abdomen containing segments of small bowel without complication. This is not extending beyond the anterior abdominal wall musculature. 4. Large hiatal hernia. 5. Moderate intrahepatic bile duct dilation without gross dilation of the common bile duct. Dictated on workstation # [id number] Dict: 08/13/221954 Trans: 08/13/222010 PJE [id number] Interpreted by: JOCELIN STUART MD Electronically signed by: Departure Impression Primary Impression: Respiratory failure Qualified Codes: J96.01 - Acute respiratory failure with hypoxia Additional Impressions: Fall Qualified Codes: W19.XXXA - Unspecified fall, initial encounter Transaminitis Disposition: ADMITTED INPATIENT Condition: Stable Admissions Decision to Admit Reason: Admit from ER (General) Decision to Admit/Date: Aug 13, 2022 Time/Decision to Admit Time: 20:30 Departure-Patient Inst. Referrals: LAVON JI DO (PCP/Family) Primary Care Physician HEBER HURT MD Aug 13, 2022 18:31
--- NOTE | 2022-08-13 18:36 | Diagnostic Imaging Report ---
PROCEDURE: CT head and CT cervical spine without contrast. TECHNIQUE: Multiple contiguous axial images were obtained through the brain and cervical spine without the use of intravenous contrast. Sagittal and coronal reformations through the cervical spine were then performed. Auto Exposure Controls were utilized during the CT exam to meet ALARA standards for radiation dose reduction. DATE: August 13, 2022. COMPARISON: None. INDICATION: 77-year-old female, injury. Head and neck pain. FINDINGS: There is no identified a skull fracture. The ventricles and cerebral spinal fluid spaces are of normal size and configuration for the patient's age. There is no mass effect or midline shift. There is no acute intracranial hemorrhage. There is no abnormal extra-axial fluid collection. The visualized portions of the paranasal sinuses, mastoid air cells and middle ears are well aerated. There is no identified facet joint subluxation or dislocation. There are multilevel facet degenerative changes of the cervical spine. There is grade 1 anterolisthesis of C2 on C3 and also of C3 on C4 and C4 on C5. There is severe disc height loss at C4-C5, C5-C6 and C6-C7 with posterior disc osteophyte complexes. There is arthritis at the C1-C2 articulation. There are well-corticated chronic long-standing areas of ossification superior to the C1-C2 articulation at its anterior aspect. CT is limited for assessment of disc pathology as well as additional non-bony causes of pathology in the spinal canal. There is no identified acute fracture of the cervical spine. The visualized portions of the lung apices are clear. IMPRESSION: 1. No identified acute intracranial abnormality. 2. No identified acute fracture of the cervical spine. 3. Multilevel advanced degenerative changes of the cervical spine, as above. Dictated by: Dictated on workstation # [id number]
--- NOTE | 2022-08-13 18:38 | Diagnostic Imaging Report ---
EXAMINATION: Chest radiograph, portable AP view. DATE: 08/13/2022 6:34 PM INDICATION: 77-year-old female, shortness of breath. COMPARISON: January 27, 2016. FINDINGS: Heart size and mediastinal contours are grossly unchanged given differences in patient positioning. There is prominence of the mediastinum. There is no identified pneumothorax. There is no large pleural effusion. There is no identified interval focal airspace consolidation. IMPRESSION: 1. Stable overall appearance of the cardiomediastinal silhouette with prominence of the mediastinum since 2015. 2. No identified interval acute cardiopulmonary abnormality. Dictated by: Dictated on workstation # [id number]
[2022-08-13] MEDS ORDERED: cefTRIAXone 1 GM PRE-MIX 50 ML IV STA (18:47)
[2022-08-13] MEDS ORDERED: AZITHROMYCIN 250 MG TAB (ZITHROMAX) PO ONE (19:00)
[2022-08-13] MEDS ORDERED: IOHEXOL 350 MG/ML 100 ML (OMNIPAQUE 350) VIAL IV ONE (19:15)
[2022-08-13] MEDS ORDERED: HOLD METFORMIN - RECEIVED CONTRAST 20 ML VIAL IV SCH (19:15)
[2022-08-13] MEDS ORDERED: NS 100 ML (IVPB) BAG IV ONE (19:15)
[2022-08-13 19:56] LABS: BILIRUBIN,URINE NEGATIVE (NEGATIVE); CLARITY,URINE CLEAR; COLOR,URINE YELLOW; GLUCOSE, URINE (UA) NEGATIVE (NEGATIVE); KETONES,URINE NEGATIVE (NEGATIVE); LEUKOCYTE ESTERASE ,URINE NEGATIVE (NEGATIVE); NITRITE,URINE NEGATIVE (NEGATIVE); PROTEIN,URINE NEGATIVE (NEGATIVE)
[2022-08-13 20:05] LABS: BACTERIA,URINE NEGATIVE /HPF
--- NOTE | 2022-08-13 20:12 | Diagnostic Imaging Report ---
Procedure: CTA chest, abdomen and pelvis. Technique: Thin axial sections through the chest, abdomen and pelvis are obtained following intravenous contrast bolus. Multiplanar MIP images were reconstructed and reviewed. All CT scans use one or more of the following dose optimizing techniques: automated exposure control, MA and/or KvP adjustment based on patient size and exam type or iterative reconstruction. Date: August 13, 2022. Indication: 77-year-old female, hypoxia, weakness. Abdominal pain. Comparison: CT abdomen and pelvis January 16, 2018. Findings: There is respiratory motion artifact. There are linear opacities in the lungs most likely reflecting multifocal atelectasis. There is no identified pneumothorax. There is no sizable pleural effusion. The more central airways are patent. There is no identified pulmonary embolus. The heart is not enlarged. There is no identified pericardial effusion. There are atherosclerotic calcifications. There is no identified abnormally enlarged mediastinal, hilar or axillary lymph node which meets CT size criteria for adenopathy. There is a large hiatal hernia. The liver is unremarkable in size and contour. There is moderate bilateral intrahepatic bile duct dilation. The common bile duct measures up to 9 mm in diameter which is very near upper limits of normal for patient age. There is no definite gallstone. There is no evidence of acute cholecystitis. The main pancreatic duct is not abnormally dilated. Unremarkable appearance of the pancreatic parenchyma. The spleen is normal in size. The adrenal glands are unremarkable. There is a 3 mm low-attenuation right renal lesion too small to characterize. The urinary collecting systems are not distended. There is no generalized wall thickening of the urinary bladder. There is a peripherally calcified mass in the region of the right adnexa near the right posterolateral aspect of the urinary bladder on axial image 137 measuring 5.6 x 4.0 cm in axial extent. There is diverticulosis without evidence of acute diverticulitis. There are sutures in the region of the cecum. There is no evidence to suggest acute appendicitis. There is a hernia defect in the left abdomen containing small bowel segments without associated obstruction or other complication. This is not extending beyond the anterior abdominal wall musculature. There are atherosclerotic calcifications. There is no identified abnormally enlarged lymph node in the abdomen or pelvis meeting CT size criteria for adenopathy. There are multilevel degenerative changes of the spine. There is grade 2 anterolisthesis of L5 on S1. 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 Impression: 1. No identified pulmonary embolus or other acute cardiopulmonary abnormality. 2. Peripherally calcified mass in the right adnexa, which is unchanged since at least 2018, most suggestive of benign etiology. 3. Hernia type defect in the left anterior abdomen containing segments of small bowel without complication. This is not extending beyond the anterior abdominal wall musculature. 4. Large hiatal hernia. 5. Moderate intrahepatic bile duct dilation without gross dilation of the common bile duct. Dictated by: Dictated on workstation # [id number]
[2022-08-13] MEDS ORDERED: LACTULOSE SYRUP 10GM/15ML (ENULOSE) 30ML UDC PO PRN (22:00)
[2022-08-13] MEDS ORDERED: MILK OF MAGNESIA 400 MG/5 ML 30 ML UDC PO PRN (22:00)
[2022-08-13] MEDS ORDERED: ACETAMINOPHEN 325 MG TABLET PO PRN (22:00)
[2022-08-13] MEDS ORDERED: ALPRAZolam 0.25 MG (XANAX) TAB PO PRN (22:00)
[2022-08-13] MEDS ORDERED: cloNIDine 0.1 MG (CATAPRES) TAB PO PRN (22:00)
[2022-08-13] MEDS ORDERED: MELATONIN 3 MG TABLET PO PRN (22:00)
[2022-08-13] MEDS ORDERED: APAP 300 MG/CODEINE 30 MG (TYLENOL #3) TAB PO PRN (22:00)
[2022-08-13] MEDS ORDERED: NS IV 1000 ML 1,000 ML IV SCH (22:00)
[2022-08-13] MEDS ORDERED: ANTACID SUSP 30 ML UDC (MYLANTA) PO PRN (22:00)
[2022-08-13] MEDS ORDERED: HYDROmorphone 2 MG/ML VIAL (DILAUDID) IV PRN (22:00)
[2022-08-13] MEDS ORDERED: diphenhydrAMINE 50 MG/ML INJ (BENADRYL) IVP PRN (22:00)
[2022-08-13] MEDS ORDERED: polyethylene glycoL POWDER 17 GM (MIRALAX) PACK PO PRN (22:00)
[2022-08-13] MEDS ORDERED: CALCIUM CARBONATE 500 MG (TUMS) TAB.CHEW PO PRN (22:00)
[2022-08-13] MEDS ORDERED: ONDANSETRON 4 MG (ZOFRAN) ORAL DISSOLVE TAB PO PRN (22:00)
[2022-08-13] MEDS ORDERED: ONDANSETRON 4 MG/2 ML (SDV) Z0FRAN IV PRN (22:00)
[2022-08-13] MEDS ORDERED: diphenhydrAMINE 25 MG TAB (BENADRYL) PO PRN (22:00)
[2022-08-13] MEDS ORDERED: guaiFENesin/CODEINE (ROBITUSSIN AC) 10ML UDC PO PRN (22:00)
[2022-08-13] MEDS ORDERED: BISACODYL 10 MG SUPP (DULCOLAX) PR PRN (22:00)
[2022-08-13 22:14] VITALS: BP 114/55
[2022-08-13] MEDS ORDERED: RT-ALBUTEROL/IPRATROPIUM 3 ML (DUONEB) VIAL INH PRN (22:30)
[2022-08-13 23:00] VITALS: BP 102/54
[2022-08-14 03:53] VITALS: BP 109/57
[2022-08-14 06:15] LABS: BASOPHILS % (AUTO) 0 % (0-10); EOSINOPHILS # (AUTO) 0.2 10^3/uL (0.0-0.3); EOSINOPHILS % (AUTO) 2 % (0-10); HEMATOCRIT 35 % (35-52); HEMOGLOBIN 11.3 g/dL (11.5-16.0); LYMPHOCYTES # (AUTO) 1.9 10^3/uL (1.0-4.0); LYMPHOCYTES % (AUTO) 20 % (12-44); MEAN CORPUSCULAR HEMOGLOBIN 30 pg (25-34); MEAN CORPUSCULAR HGB CONC 33 g/dL (32-36); MEAN CORPUSCULAR VOLUME 91 fL (80-99); MEAN PLATELET VOLUME 8.9 fL (9.0-12.2); MONOCYTES # (AUTO) 1.1 10^3/uL (0.0-1.0); MONOCYTES % (AUTO) 12 % (0-12); NEUTROPHILS # (AUTO) 6.1 10^3/uL (1.8-7.8); NEUTROPHILS % (AUTO) 65 % (42-75); PLATELET COUNT 241 10^3/uL (130-400); WHITE BLOOD COUNT 9.5 10^3/uL (4.3-11.0)
[2022-08-14 06:38] LABS: ALBUMIN 3.5 GM/DL (3.2-4.5); BILIRUBIN,TOTAL 0.4 MG/DL (0.1-1.0); CALCIUM 9.2 MG/DL (8.5-10.1); CREATININE SERUM 1.05 MG/DL (0.60-1.30); POTASSIUM 3.8 MMOL/L (3.6-5.0); TOTAL PROTEIN 6.3 GM/DL (6.4-8.2)
[2022-08-14 08:07] VITALS: BP 98/61
[2022-08-14] MEDS: DOCUSATE SODIUM 100 MG (COLACE) CAP PO SCH ×2 (08:20→20:40)
[2022-08-14] MEDS: SENNOSIDES 8.6 MG (SENOKOT) TAB PO SCH ×2 (08:20→20:40)
[2022-08-14] MEDS ORDERED: ENOXAPARIN 40 MG/0.4 ML (LOVENOX) SYR SC SCH (09:00)
--- NOTE | 2022-08-14 09:09 | Diagnostic Imaging Report ---
PROCEDURE: US Abdomen, limited. TECHNIQUE: Multiple realtime grayscale images were obtained over the abdomen in various projections. INDICATION: Elevated liver function tests. The liver is upper limits of normal in size, approximately 18 cm. No liver mass is identified. There does appear to be intrahepatic biliary ductal dilatation. The portal vein is patent and shows normal direction of flow. Gallbladder is distended measuring 16 cm x 4.3 x 4.8 cm. There is sludge in the gallbladder. Gallbladder wall does not appear to be appreciably thickened. No pericholecystic fluid is identified. Extrahepatic bile duct is dilated to 15 mm. Pancreas and aorta are obscured by bowel gas. IVC appears patent. Right kidney is without calculi or hydronephrosis. There is no ascites. IMPRESSION: 1. Gallbladder distention and gallbladder sludge. There is intrahepatic and extrahepatic bile duct dilatation. Common duct stone cannot be entirely excluded with these findings and MRCP may be useful for further evaluation. Dictated by: Dictated on workstation # [id number]
--- NOTE | 2022-08-14 09:33 | Occupational Therapy Eval ---
OT Evaluation-General/PLF Medical Diagnosis Admission Date Aug 13, 2022 at 20:47 Medical Diagnosis: Weakness/debility Onset Date: Aug 13, 2022 Therapy Diagnosis Therapy Diagnosis: Decreased ADL skills Height/Weight Height (Feet): 5 Height (Inches): 5.00 Weight (Pounds): 200 Weight (Ounces): 0.0 Precautions Precautions/Isolations: Fall Prevention, Standard Precautions Weight Bear Status Weight Bearing Restriction: Weight Bearing/Tolerated Referral Physician: Dr. Bruno Referral Reason: Activity Tolerance, Self Care, Evaluation/Treatment, Strengthe miki/ROM Medical History Pertinent Medical History: Arthritis Additional Medical History Bilateral knee replacement, stomach restructure, DDD Current History Pt. states that she fell after taking out the trash. She became very weak and was unable to get up. Crawled and called EMS. States that she is feeling much better today. Reviewed History: Yes Social History Home: Single Level Current Living Status: Alone Entry Into Home: Stairs With Railing Steps Into Home: 4 ADL-Prior Level of Function SCALE: Activities may be completed with or without assistive devices. 0-Rysdxfttoa-kwqegdl completes the activity by him/herself with no assistance from a helper. 5-Set-up or Clean-up Assistance-helper sets up or cleans up; patient completes activity. [place] assists only prior to or following the activity. 4-Supervision or Touching Assistance-helper provides verbal cues and/or touching/steadying and/or contact guard assistance as patient completes activity. Assistance may be provided throughout the activity or intermittently. 3-Partial/Moderate Assistance-helper does LESS THAN HALF the effort. Shock lifts, holds or supports trunk or limbs, but provides less than half the effort. 2-Substantial/Maximal Assistance-helper does MORE THAN HALF the effort. Shock lifts or holds trunk or limbs and provides more than half the effort. 5-Dlsdrwhyb-yazyvg does ALL the effort. Patient does none of the effort to compl ete the activity. Or, the assistance of 2 or more helpers is required for the patient to complete the activity. If activity was not attempted, code reason: 7-Patient Refused. 9-Not Applicable-not attempted and the patient did not perform the activity before the current illness, exacerbation or injury. 10-Not Attempted due to Environmental Limitations-(lack of equipment, weather restraints, etc.). 88-Not Attempted due to Medical Conditions or Safety Concerns. ADL PLOF Comments Pt. states that she is fully independent with daily skills. She drives. Self Care: Independent Functional Cognition: Independent DME/Equipment: Bath Chair, Tub/Shower DME/Equipment Comments Pt. has a cane that she only uses when she leaves her home. Drive Self: Yes OT Current Status Subjective No pain reported. Appearance Pt. up in chair. Agrees to work with therapist. Mental Status/Objective Patient Orientation: Person, Place, Time, Situation Attachments: Barker Catheter, IV Current Upper Extremity ROM WFL ADL-Treatment Eating (QC): 6 (Pt. eating breakfast when OT entered room.) On/Off Footwear (QC): 6 (Pt. is able to bend over and doff/don slipper socks.) Pt. is able to stand from chair with no LOB and without assistive device. She raises her hands and shifts weight back and forth. No dizziness reported. No fatigue. She does not have to use the bathroom stating that she has a catheter. Pt. able to fully reach her feet with no issues. Pt. back in chair with all needs met, and calling daughter when OT leaves room. Education OT Patient Education: Correct positioning, Modified ADL techniques, Progress toward Goal/Update tx plan, Purpose of tx/functional activities, Reviewed precautions, Rehab process, Transfer techniques Teaching Recipient: Patient Teaching Methods: Demonstration, Discussion Response to Teaching: Verbalize Understanding, Return Demonstration OT Engravings Polisher Goals Engravings Polisher Goals Time Frame: Aug 14, 2022 Additional Goals: 1-Demonstrate ADL Tasks, 2-Verbalize Understanding 1=Demonstrate adherence to instructed precautions during ADL tasks. 2=Patient will verbalize/demonstrate understanding of assistive devices/modifications for ADL. 3=Patient will improve strength/tolerance for activity to enable patient to perform ADL's. Pt. demonstrates adequate strength, balance, and flexibility to complete daily tasks. She states that she feels well. No further OT needed at this time. Will discharge pt. from services. OT Education/Plan Problem List/Assessment Assessment: No Skilled OT Needs ID'd Discharge Recommendations Plan/Recommendations: Discontinue OT Treatment Plan/Plan of Care Plan of Care: OTHER Treatment Duration: Aug 14, 2022 Frequency: 1 time per week Time Start Time: 08:40 Stop Time: 09:00 DATE: Aug 14, 2022 Total Time Billed (hr/min): 20 Billed Treatment Time 1, EVL x 20minutes Discharge OT services at this time. SHAN GASTELUM OT Aug 14, 2022 09:33
--- NOTE | 2022-08-14 10:21 | Physical Therapy Evaluation ---
PT Evaluation-General Medical Diagnosis Admission Date Aug 13, 2022 at 20:47 Medical Diagnosis: respiratory failure Onset Date: Aug 13, 2022 Therapy Diagnosis Therapy Diagnosis: debility Height/Weight Height (Feet): 5 Height (Inches): 5.00 Weight (Pounds): 200 Weight (Ounces): 0.0 Precautions Precautions/Isolations: Fall Prevention, Standard Precautions Referral Physician: Dr. Bruno Reason for Referral: Evaluation/Treatment Medical History Pertinent Medical History: Arthritis, HTN Current History EMS secondary to fall x 2 Reviewed History: Yes Social History Home: Single Level Current Living Status: Alone Entry Into Home: Stairs With Railing PT Steps Into Home: 4 Prior Prior Level of Function SCALE: Activities may be completed with or without assistive devices. 1-Ltfybrabbx-fakxgtu completes the activity by him/herself with no assistance from a helper. 5-Set-up or Clean-up Assistance-helper sets up or cleans up; patient completes activity. [place] assists only prior to or following the activity. 4-Supervision or Touching Assistance-helper provides verbal cues and/or touching/steadying and/or contact guard assistance as patient completes activity. Assistance may be provided throughout the activity or intermittently. 3-Partial/Moderate Assistance-helper does LESS THAN HALF the effort. [place] lifts, holds or supports trunk or limbs, but provides less than half the effort. 2-Substantial/Maximal Assistance-helper does MORE THAN HALF the effort. [place] lifts or holds trunk or limbs and provides more than half the effort. 1-Aqvzinjij-ojqiar does ALL the effort. Patient does none of the effort to complete the activity. Or, the assistance of 2 or more helpers is required for the patient to complete the activity. If activity was not attempted, code reason: 7-Patient Refused. 9-Not Applicable-not attempted and the patient did not perform the activity before the current illness, exacerbation or injury. 10-Not Attempted due to Environmental Limitations-(lack of equipment, weather restraints, etc.). 88-Not Attempted due to Medical Conditions or Safety Concerns. Bed Mobility: 6 Transfers (B,C,W/C): 6 Gait: 6 Stairs: 6 Indoor Mobility (Ambulation): Independent Stairs: Independent Prior Devices Use: Other-see list below Prior Device Use: cane PT Evaluation-Current Subjective Patient agrees to PT. Objective Patient Orientation: Normal For Age ROM/Strength ROM Lower Extremities bilateral LE WFL Strength Lower Extremities 4-/5 grossly bilateral LE all planes Integumentary/Posture Bowel Incontinence: No Bladder Incontinence: No Posture trunk flexed posture (chronic) Neuromuscular (Tone, Coordination, Reflexes) grossly intact Sensory Vision: Wears Glasses Hearing: Functional Transfers Lying to Sitting/Side of Bed(Q: 6 Sit to Stand (QC): 5 Chair/Han-ym-Ybvjp Xfer(QC): 5 Gait Mode of Locomotion: Walk Anticipated Mode of Locomotion: Walk Walk 10 feet (QC): 5 Walk 50 ft with 2 Turns(QC): 5 Walk 150 ft (QC): 5 Distance: 400' Gait Assistive Device: FWW Comments/Gait Description safe and functional with no deviation Balance Sitting Static: Normal Sitting Dynamic: Normal Standing Static: Normal Standing Dynamic: Normal Assessment/Needs Patient will be seen short term by skilled PT to address functional mobility to ensure safer return to home at maximum LOF. Rehab Potential: Fair PT Short Term Goals Short Term Goals Time Frame: Aug 19, 2022 Roll Left & Right: 6 Sit to lyin Lying to sitting on side of be: 6 Sit to stand: 6 Chair/kyf-cp-cqyxx transfer: 6 Toilet transfer: 6 Walk 10 feet: 6 Walk 50 feet with two turns: 6 Walk 150 feet: 6 PT Plan Problem List Problem List: Safety Treatment/Plan Treatment Plan: Continue Plan of Care Treatment Plan: Education, Functional Activity Oseas, Functional Strength, Gait, Safety, Therapeutic Exercise, Transfers Treatment Duration: Aug 19, 2022 Frequency: 5 times per week Estimated Hrs Per Day: .25 hour per day Patient and/or Family Agrees t: Yes Discharge Recommendations Therapy Discharge Recommendati: Home & Family Time Time In: 821 Time Out: 835 DATE: Aug 14, 2022 Total Billed Treatment Time: 14 [facility] GUILLE AGUIL[facility] PT Aug 14, 2022 10:21
[2022-08-14 11:56] VITALS: BP 106/66
--- NOTE | 2022-08-14 12:36 | History & Physical ---
TATE ASTORGA I 08/14/22 1236: History of Present Illness History of Present Illness Reason for visit/HPI Arleen Crain is 77 year old female with a past history of bilateral TKA, appendicitis, rectal fistula, and hiatal hernia repair, with recent 35 pounds of intentional weight loss, admitted for hypoxia and weakness. On 08/13 she was in her usual state of health when she felt her lower body go weak in her front yard. She experienced bilateral lower extremity weakness and slowly fell to her left side and made contact with the ground. She thought she was having a heart attack and used her hands to prop herself up to a sitting position and scoot toward the house where she called 911 and EMS was notified. Throughout this event she experienced no pain, only lower extremity weakness. She denies chest pain, difficulty breathing, abdominal pain, and lower extremity pain. Upon arrival to the hospital she was found to be hypoxic (mid 80s) and was started on 2L. Date of Admission Aug 13, 2022 at 20:47 Date Seen by a Provider: Aug 14, 2022 Time Seen by a Provider: 11:00 I consulted on this patient on 08/14/22 12:36 Attending Physician Katelyn Ji DO Admitting Physician Admitting Physician: Katelyn Ji DO Attending Physician: Katelyn Ji DO Consult Surgery Allergies and Home Medications Allergies Coded Allergies: cyclobenzaprine (Verified Allergy, Unknown, 05/14/07) morphine (Verified Allergy, Unknown, 08/10/08) Patient Home Medication List ALPRAZolam (ALPRAZolam) 0.25 Mg Tablet, 0.25 MG PO BID PRN for ANXIETY, (Reported) Entered as Reported by: SUHAIL MELO on 08/14/221528 Last Action: Reviewed Acetaminophen with Codeine (Acetaminophen-Cod #3 Tablet) 300 Mg-30 Mg Tablet, 1 EACH PO Q6H PRN for PAIN-MODERATE (5-7), (Reported) Entered as Reported by: SUHAIL MELO on 08/14/221528 Last Action: Reviewed Aspirin (Aspirin EC) 81 Mg Tablet.dr, 81 MG PO DAILY, (Reported) Entered as Reported by: SUHAIL MELO on 08/14/221528 Last Action: Reviewed Benazepril HCl (Benazepril HCl) 10 Mg Tablet, 10 MG PO DAILY, (Reported) Entered as Reported by: SUHAIL MELO on 08/14/221528 Last Action: Reviewed Calcium Carbonate/Vitamin D3 (Calcium 500 + Vit D Caplet) 500-3.125 Tablet, 1 EACH PO DAILY, (Reported) Entered as Reported by: SUHAIL MELO on 08/14/221528 Last Action: Reviewed Diphenhydramine HCl (Benadryl Allergy) 25 Mg Tablet, 50 MG PO HS, (Reported) Entered as Reported by: SUHAIL MELO on 08/14/221528 Last Action: Reviewed Lovastatin (Lovastatin) 20 Mg Tablet, 20 MG PO HS, (Reported) Entered as Reported by: SUHAIL MELO on 08/14/221528 Last Action: Reviewed Meloxicam (Meloxicam) 15 Mg Tablet, 15 MG PO, (Reported) Entered as Reported by: SUHAIL MELO on 08/14/221528 Last Action: Reviewed Multivitamin (Multivitamin) 1 Each Tablet, 1 EACH PO DAILY, (Reported) Entered as Reported by: SUHAIL MELO on 08/14/221528 Last Action: Reviewed Omeprazole (Omeprazole) 40 Mg Capsule.dr, 40 MG PO DAILY, (Reported) Entered as Reported by: SUHAIL MELO on 08/14/221528 Last Action: Reviewed Potassium Chloride (Potassium Chloride) 10 Meq Capsule.er, 10 MEQ PO DAILY, (Reported) Entered as Reported by: SUHAIL MELO on 08/14/221528 Last Action: Reviewed Sertraline HCl (Sertraline HCl) 100 Mg Tablet, 100 MG PO DAILY, (Reported) Entered as Reported by: SUHAIL MELO on 08/14/221528 Last Action: Reviewed Triamterene/Hydrochlorothiazid (Triamterene-Hctz 37.5-25 mg Cp) 37.5 Mg-25 Mg Capsule, 1 EACH PO DAILY, (Reported) Entered as Reported by: SUHAIL MELO on 08/14/221528 Last Action: Reviewed Discontinued Medications Alprazolam (Xanax) 0.25 Mg Tablet, 0.5 TAB PO Q6H PRN for ANXIETY, (Reported) Discontinued Reason: No Longer Taking Entered as Reported by: MAU FISCHER on 05/14/07 1004 Last Action: Discontinued Aspirin (Aspirin) 81 Mg Tablet, 81 MG PO HS, (Reported) Discontinued Reason: No Longer Taking Entered as Reported by: MAU FISCHER on 05/14/07 1001 Last Action: Discontinued Benazepril Hcl (Lotensin 10 Mg) 10 Mg Tablet, 10 MG PO HS, (Reported) Discontinued Reason: No Longer Taking Entered as Reported by: MAU FISCHER on 05/14/07 1003 Last Action: Discontinued Calcium Carbonate/Vitamin D3 (Brad-600 W/Vit D Tablet) 1 Tab Tablet, 1 TAB PO DAILY, (Reported) Discontinued Reason: No Longer Taking Entered as Reported by: MAU FISCHER on 05/14/07 1002 Last Action: Discontinued Cefuroxime Axetil (Ceftin) 250 Mg Tablet, 250 MG PO BID Discontinued Reason: No Longer Taking Prescribed by: STAN MENENDEZ on 01/27/16 1319 Last Action: Discontinued Cholecalciferol (Vitamin D3) 1,000 Unit Capsule, 1,000 UNIT PO DAILY, (Reported) Discontinued Reason: No Longer Taking Entered as Reported by: RUDDY BRADY on 10/21/13 1435 Last Action: Discontinued Ciprofloxacin HCl (Cipro) 500 Mg Tablet, 500 MG PO BID Discontinued Reason: No Longer Taking Prescribed by: KEVIN TEMPLE on 01/16/18 0821 Last Action: Discontinued Diphenhydramine Hcl (Diphenhydramine 25 Mg) 25 Mg Tablet, 50 MG PO HS PRN for SLEEP, (Reported) Discontinued Reason: No Longer Taking Entered as Reported by: RUDDY BRADY on 10/21/13 1445 Last Action: Discontinued Ginkgo Biloba Extract (Ginkgo Biloba) 120 Mg Capsule, 120 MG PO DAILY, (Reported) Discontinued Reason: No Longer Taking Entered as Reported by: RUDDY BRADY on 10/21/13 1445 Last Action: Discontinued Lovastatin (Lovastatin 20 Mg) 20 Mg Tablet, 20 MG PO HS, (Reported) Discontinued Reason: No Longer Taking Entered as Reported by: RUDDY BRADY on 10/21/13 143 Last Action: Discontinued Meloxicam (Meloxicam) 15 Mg Tablet, 15 MG PO DAILY, (Reported) Discontinued Reason: No Longer Taking Entered as Reported by: RUDDY BRADY on 10/21/13 1431 Last Action: Discontinued Metronidazole (Flagyl) 500 Mg Tablet, 500 MG PO QID Discontinued Reason: No Longer Taking Prescribed by: KEVIN TEMPLE on 01/16/18820 Last Action: Discontinued Multivitamins (Vitamins (Multi-Vit)) 1 Ea Tablet, 1 TAB PO DAILY, (Reported) Discontinued Reason: No Longer Taking Entered as Reported by: MAU FISCHER on 05/14/07958 Last Action: Discontinued Ondansetron (Zofran Odt) 4 Mg Tab.rapdis, 4 MG PO Q4H Discontinued Reason: No Longer Taking Prescribed by: KEVIN TEMPLE on 01/16/18820 Last Action: Discontinued Potassium Chloride (Klor-Con) 10 Meq Capcr, 10 MEQ PO DAILY, (Reported) Discontinued Reason: No Longer Taking Entered as Reported by: MAU FISCHER on 05/14/07957 Last Action: Discontinued Prednisone (Prednisone) 50 Mg Tab, 50 MG PO DAILY Discontinued Reason: No Longer Taking Prescribed by: DIPIKA VENTURA on 04/03/21 1629 Last Action: Discontinued Sertraline Hcl (Sertraline Hcl) 100 Mg Tablet, 100 MG PO DAILY, (Reported) Discontinued Reason: No Longer Taking Entered as Reported by: RUDDY BRADY on 10/21/13 1435 Last Action: Discontinued Triamterene/Hctz (Dyazide 37.5-25 Capsule) 1 Each Capsule, 1 CAP PO DAILY, (Reported) Discontinued Reason: No Longer Taking Entered as Reported by: RUDDY BRADY on 10/21/13 1431 Last Action: Discontinued Past Sevvwqf-[id number]-Jgsrba Hx Patient Social History Tobacco Use?: No Smoking Status: Never a Smoker Smokeless Tobacco Frequency: Never a User Use of E-Cig and/or Vaping dev: No Substance use?: No Alcohol Use?: No Pt feels they are or have been: No Immunizations Up To Date First/Initial COVID19 Vaccinat: OCTOBER Second COVID19 Vaccination Leobardo: OCTOBER Tetanus Booster (TDap): Unknown Hepatitis A: Yes Hepatitis B: Yes PED Vaccines UTD: No Date of Pneumonia Vaccine: May 06, 2010 Seasonal Allergies Seasonal Allergies: No Current Status status: No status: No Advance Directives: No Communicates: Verbally Primary Language: Irish Preferred Spoken Language: Irish Is interpretation needed?: No Sensory deficits: Vision impairment Implanted or Applied Medical D: BiPAP, Orthopedic hardware Past Medical History Surgeries: Appendectomy, Orthopedic Sleep Apnea Currently Using CPAP: No Currently Using BIPAP: Yes 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 Cholesterol, 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 Sexually Transmitted Disease: No HIV/AIDS: No Hiatal Hernia Degenerate Disk Disease, Arthritis, Chronic Back Pain Breast Anxiety, Depression Blood Disorders: No Review of Systems Constitutional: no symptoms reported EENTM: no symptoms reported Respiratory: no symptoms reported Cardiovascular: no symptoms reported Gastrointestinal: no symptoms reported Genitourinary: no symptoms reported : No Musculoskeletal: no symptoms reported Skin: no symptoms reported Psychiatric/Neurological: No Symptoms Reported All Other Systems Reviewed Negative Unless Noted: Yes Physical Exam Vital Signs Vital Signs - First Documented 08/13/22 08/13/22 17:22 21:27 Temp 37.8 Pulse 85 Resp 18 B/P (MAP) 114/55 (74) Pulse Ox 94 O2 Delivery Room Air O2 Flow Rate 2.00 FiO2 97 Capillary Refill : Less Than 3 Seconds Height, Weight, BMI Height: 5'5.00" Weight: 200lbs. 0.0oz. [id number]; 33.30 BMI Method:Stated General Appearance: No Apparent Distress, WD/WN Eyes: Bilateral Eye Normal Inspection, Bilateral Eye PERRL, Bilateral Eye EOMI HEENT: PERRL/EOMI, TMs Normal, Normal ENT Inspection, Pharynx Normal Neck: Full Range of Motion, Normal Inspection, Non Tender, Supple Respiratory: Chest Non Tender, Lungs Clear, Normal Breath Sounds, No Accessory Muscle Use, No Respiratory Distress Cardiovascular: Regular Rate, Rhythm, No Edema, No Gallop, No JVD, No Murmur, Normal Peripheral Pulses Gastrointestinal: Normal Bowel Sounds, Non Tender, Soft Rectal: Deferred Back: Normal Inspection, No CVA Tenderness, No Vertebral Tenderness Neurologic/Psychiatric: Alert, Oriented x3, No Motor/Sensory Deficits, Normal Mood/Affect Skin: Normal Color, Warm/Dry Assessment/Plan Assessment and Plan Hypoxia Mild PE vs PNA - CXR: no acute abnormalities. - CT head /neck: Degenerative changes, no acute abnormality - D dimer did not rule out DVT - CTA: abdominal hernia, diverticulosis, and moderate intrahepatic bile duct dilation. - BNP: Normal - 85% on 2L in ED - Currently on room air Weakness - Troponin negative - Electrolytes WNL - UA neg - Barker removed, voided 2x Elevated liver enzymes - AST (224 -> 131) and ALA (170 -> 123) - Alk phos (222->162) - US showing gallbladder dilated to 9mm (ULN) - Laparoscopic cholecystectomy scheduled for 08/15 Dyslipidemia - continue home statin History of hiatal hernia - PPI - Monitor Degenerative disc disease - Position for comfort - PT/OT Clinical Quality Measures DVT/VTE Risk/Contraindication: Contraindications-Mechi: Other *list below* Other: DVT suspected KATELYN JI DO 08/14/222136: Allergies and Home Medications Allergies Coded Allergies: cyclobenzaprine (Verified Allergy, Unknown, 05/14/07) morphine (Verified Allergy, Unknown, 08/10/08) Patient Home Medication List Home Medication List Reviewed: Yes ALPRAZolam (ALPRAZolam) 0.25 Mg Tablet, 0.25 MG PO BID PRN for ANXIETY, (Reported) Entered as Reported by: SUHAIL MELO on 08/14/221528 Last Action: Reviewed Acetaminophen with Codeine (Acetaminophen-Cod #3 Tablet) 300 Mg-30 Mg Tablet, 1 EACH PO Q6H PRN for PAIN-MODERATE (5-7), (Reported) Entered as Reported by: SUHAIL MELO on 08/14/221528 Last Action: Reviewed Aspirin (Aspirin EC) 81 Mg Tablet.dr, 81 MG PO DAILY, (Reported) Entered as Reported by: SUHAIL MELO on 08/14/221528 Last Action: Reviewed Benazepril HCl (Benazepril HCl) 10 Mg Tablet, 10 MG PO DAILY, (Reported) Entered as Reported by: SUHAIL MELO on 08/14/221528 Last Action: Reviewed Calcium Carbonate/Vitamin D3 (Calcium 500 + Vit D Caplet) 500-3.125 Tablet, 1 EACH PO DAILY, (Reported) Entered as Reported by: SUHAIL MELO on 08/14/221528 Last Action: Reviewed Diphenhydramine HCl (Benadryl Allergy) 25 Mg Tablet, 50 MG PO HS, (Reported) Entered as Reported by: SUHAIL MELO on 08/14/221528 Last Action: Reviewed Lovastatin (Lovastatin) 20 Mg Tablet, 20 MG PO HS, (Reported) Entered as Reported by: SUHAIL MELO on 08/14/221528 Last Action: Reviewed Meloxicam (Meloxicam) 15 Mg Tablet, 15 MG PO, (Reported) Entered as Reported by: SUHAIL MELO on 08/14/221528 Last Action: Reviewed Multivitamin (Multivitamin) 1 Each Tablet, 1 EACH PO DAILY, (Reported) Entered as Reported by: SUHAIL MELO on 08/14/221528 Last Action: Reviewed Omeprazole (Omeprazole) 40 Mg Capsule.dr, 40 MG PO DAILY, (Reported) Entered as Reported by: SUHAIL MELO on 08/14/221528 Last Action: Reviewed Potassium Chloride (Potassium Chloride) 10 Meq Capsule.er, 10 MEQ PO DAILY, (Reported) Entered as Reported by: SUHAIL MELO on 08/14/221528 Last Action: Reviewed Sertraline HCl (Sertraline HCl) 100 Mg Tablet, 100 MG PO DAILY, (Reported) Entered as Reported by: SUHAIL MELO on 08/14/221528 Last Action: Reviewed Triamterene/Hydrochlorothiazid (Triamterene-Hctz 37.5-25 mg Cp) 37.5 Mg-25 Mg Capsule, 1 EACH PO DAILY, (Reported) Entered as Reported by: SUHAIL MELO on 08/14/221528 Last Action: Reviewed Discontinued Medications Alprazolam (Xanax) 0.25 Mg Tablet, 0.5 TAB PO Q6H PRN for ANXIETY, (Reported) Discontinued Reason: No Longer Taking Entered as Reported by: MAU FISCHER on 05/14/07 1004 Last Action: Discontinued Aspirin (Aspirin) 81 Mg Tablet, 81 MG PO HS, (Reported) Discontinued Reason: No Longer Taking Entered as Reported by: MAU FISCHER on 05/14/07 1001 Last Action: Discontinued Benazepril Hcl (Lotensin 10 Mg) 10 Mg Tablet, 10 MG PO HS, (Reported) Discontinued Reason: No Longer Taking Entered as Reported by: MAU FISCHER on 05/14/07 1003 Last Action: Discontinued Calcium Carbonate/Vitamin D3 (Brad-600 W/Vit D Tablet) 1 Tab Tablet, 1 TAB PO DAILY, (Reported) Discontinued Reason: No Longer Taking Entered as Reported by: MAU FISCHER on 05/14/07 1002 Last Action: Discontinued Cefuroxime Axetil (Ceftin) 250 Mg Tablet, 250 MG PO BID Discontinued Reason: No Longer Taking Prescribed by: STAN MENENDEZ on 01/27/16 1319 Last Action: Discontinued Cholecalciferol (Vitamin D3) 1,000 Unit Capsule, 1,000 UNIT PO DAILY, (Reported) Discontinued Reason: No Longer Taking Entered as Reported by: RUDDY BRADY on 10/21/131434 Last Action: Discontinued Ciprofloxacin HCl (Cipro) 500 Mg Tablet, 500 MG PO BID Discontinued Reason: No Longer Taking Prescribed by: KEVIN TEMPLE on 01/16/18820 Last Action: Discontinued Diphenhydramine Hcl (Diphenhydramine 25 Mg) 25 Mg Tablet, 50 MG PO HS PRN for SLEEP, (Reported) Discontinued Reason: No Longer Taking Entered as Reported by: RUDDY BRADY on 10/21/13 144 Last Action: Discontinued Ginkgo Biloba Extract (Ginkgo Biloba) 120 Mg Capsule, 120 MG PO DAILY, (Reported) Discontinued Reason: No Longer Taking Entered as Reported by: RUDDY BRADY on 10/21/131444 Last Action: Discontinued Lovastatin (Lovastatin 20 Mg) 20 Mg Tablet, 20 MG PO HS, (Reported) Discontinued Reason: No Longer Taking Entered as Reported by: RUDDY BRADY on 10/21/131430 Last Action: Discontinued Meloxicam (Meloxicam) 15 Mg Tablet, 15 MG PO DAILY, (Reported) Discontinued Reason: No Longer Taking Entered as Reported by: RUDDY BRADY on 10/21/131430 Last Action: Discontinued Metronidazole (Flagyl) 500 Mg Tablet, 500 MG PO QID Discontinued Reason: No Longer Taking Prescribed by: KEVIN TEMPLE on 01/16/18820 Last Action: Discontinued Multivitamins (Vitamins (Multi-Vit)) 1 Ea Tablet, 1 TAB PO DAILY, (Reported) Discontinued Reason: No Longer Taking Entered as Reported by: MAU FISCHER on 05/14/07958 Last Action: Discontinued Ondansetron (Zofran Odt) 4 Mg Tab.rapdis, 4 MG PO Q4H Discontinued Reason: No Longer Taking Prescribed by: KEVIN TEMPLE on 01/16/18820 Last Action: Discontinued Potassium Chloride (Klor-Con) 10 Meq Capcr, 10 MEQ PO DAILY, (Reported) Discontinued Reason: No Longer Taking Entered as Reported by: MAU FISCHER on 05/14/07957 Last Action: Discontinued Prednisone (Prednisone) 50 Mg Tab, 50 MG PO DAILY Discontinued Reason: No Longer Taking Prescribed by: DIPIKA VENTURA on 04/03/21 1629 Last Action: Discontinued Sertraline Hcl (Sertraline Hcl) 100 Mg Tablet, 100 MG PO DAILY, (Reported) Discontinued Reason: No Longer Taking Entered as Reported by: RUDDY BRADY on 10/21/13 1435 Last Action: Discontinued Triamterene/Hctz (Dyazide 37.5-25 Capsule) 1 Each Capsule, 1 CAP PO DAILY, (Reported) Discontinued Reason: No Longer Taking Entered as Reported by: RUDDY BRADY on 10/21/13 1431 Last Action: Discontinued Assessment/Plan Assessment and Plan Problems: (1) Respiratory failure Qualifiers: Qualified Codes: J96.01 - Acute respiratory failure with hypoxia (2) Hypoxia (3) Transaminitis Status: Acute (4) Fall Status: Acute Qualifiers: Qualified Codes: W19.XXXA - Unspecified fall, initial encounter Admission Diagnosis Assessment: Early Pneumonia Fall at home Gallbladder sludge Plan: Discontinue catheter Dr. Clolier consult Discontinue telemetry Admission Status: Observation Supervisory-Addendum Brief Verification & Attestation Participated in pt care: history, MDM, physical Personally performed: exam, history, MDM, supervision of care Care discussed with: Medical Student Procedures: n/a Results interpretation: Verified all documentation Verification and Attestation of Medical Student E/M Service A medical student performed and documented this service in my presence. I reviewed and verified all information documented by the medical student and made modifications to such information, when appropriate. I personally performed the physical exam and medical decision making. Katelyn Ji, Aug 14, 2022,21:37 TATE ASTORGA I Aug 14, 2022 12:36 KATELYN JI DO Aug 14, 2022 21:37
--- NOTE | 2022-08-14 13:43 | Consultation - Surgery ---
RHODA PHAM 08/14/22 1343: History of Present Illness History of Present Illness Patient Consulted On(berto/time) 08/14/22 13:37 Date Seen by Provider: Aug 14, 2022 Time Seen by Provider: 13:05 History of Present Illness Consult requested for US evidence of gallbladder sludge and elevated liver enzymes. 77 YO female presented to ED yesterday after collapsing in the grass while taking the trash out. States was too weak to get back up on her own requiring fire/ems support. She denies LOC or any other injury. States she started "Golo" diet pill x 3 months ago and has lost 37 lbs, wondering if that has contributed to some of the weakness. She denies any abdominal pain, n/v, sweats, fever, chest pain, urinary sx or shortness of breath. She has never had problems with her gallbladder before. She has hx of diverticulosis, HLD, HTN. She has had an appendectomy and large hiatal hernia repair. States otherwise she feels fine. Allergies and Home Medications Allergies Coded Allergies: cyclobenzaprine (Verified Allergy, Unknown, 05/14/07) morphine (Verified Allergy, Unknown, 08/10/08) Patient Home Medication List Home Medication List Reviewed: Yes ALPRAZolam (ALPRAZolam) 0.25 Mg Tablet, 0.25 MG PO BID PRN for ANXIETY, (Reported) Entered as Reported by: SUHAIL MELO on 08/14/221528 Last Action: Reviewed Acetaminophen with Codeine (Acetaminophen-Cod #3 Tablet) 300 Mg-30 Mg Tablet, 1 EACH PO Q6H PRN for PAIN-MODERATE (5-7), (Reported) Entered as Reported by: SUHAIL MELO on 08/14/221528 Last Action: Reviewed Aspirin (Aspirin EC) 81 Mg Tablet.dr, 81 MG PO DAILY, (Reported) Entered as Reported by: SUHAIL MELO on 08/14/221528 Last Action: Reviewed Benazepril HCl (Benazepril HCl) 10 Mg Tablet, 10 MG PO DAILY, (Reported) Entered as Reported by: SUHAIL MELO on 08/14/221528 Last Action: Reviewed Calcium Carbonate/Vitamin D3 (Calcium 500 + Vit D Caplet) 500-3.125 Tablet, 1 EACH PO DAILY, (Reported) Entered as Reported by: SUHAIL MELO on 08/14/221528 Last Action: Reviewed Diphenhydramine HCl (Benadryl Allergy) 25 Mg Tablet, 50 MG PO HS, (Reported) Entered as Reported by: SUHAIL MELO on 08/14/221528 Last Action: Reviewed Lovastatin (Lovastatin) 20 Mg Tablet, 20 MG PO HS, (Reported) Entered as Reported by: SUHAIL MELO on 08/14/221528 Last Action: Reviewed Meloxicam (Meloxicam) 15 Mg Tablet, 15 MG PO, (Reported) Entered as Reported by: SUHAIL MELO on 08/14/221528 Last Action: Reviewed Multivitamin (Multivitamin) 1 Each Tablet, 1 EACH PO DAILY, (Reported) Entered as Reported by: SUHAIL MELO on 08/14/221528 Last Action: Reviewed Omeprazole (Omeprazole) 40 Mg Capsule.dr, 40 MG PO DAILY, (Reported) Entered as Reported by: SUHAIL MELO on 08/14/221528 Last Action: Reviewed Potassium Chloride (Potassium Chloride) 10 Meq Capsule.er, 10 MEQ PO DAILY, (Reported) Entered as Reported by: SUHAIL MELO on 08/14/221528 Last Action: Reviewed Sertraline HCl (Sertraline HCl) 100 Mg Tablet, 100 MG PO DAILY, (Reported) Entered as Reported by: SUHAIL MELO on 08/14/221528 Last Action: Reviewed Triamterene/Hydrochlorothiazid (Triamterene-Hctz 37.5-25 mg Cp) 37.5 Mg-25 Mg Capsule, 1 EACH PO DAILY, (Reported) Entered as Reported by: SUHAIL MELO on 08/14/221528 Last Action: Reviewed Discontinued Medications Alprazolam (Xanax) 0.25 Mg Tablet, 0.5 TAB PO Q6H PRN for ANXIETY, (Reported) Discontinued Reason: No Longer Taking Entered as Reported by: MAU FISCHER on 05/14/074 Last Action: Discontinued Aspirin (Aspirin) 81 Mg Tablet, 81 MG PO HS, (Reported) Discontinued Reason: No Longer Taking Entered as Reported by: MAU FISCHER on 05/14/07 1001 Last Action: Discontinued Benazepril Hcl (Lotensin 10 Mg) 10 Mg Tablet, 10 MG PO HS, (Reported) Discontinued Reason: No Longer Taking Entered as Reported by: MAU FISCHER on 05/14/07 1003 Last Action: Discontinued Calcium Carbonate/Vitamin D3 (Brad-600 W/Vit D Tablet) 1 Tab Tablet, 1 TAB PO DAILY, (Reported) Discontinued Reason: No Longer Taking Entered as Reported by: MAU FISCHER on 05/14/07 1002 Last Action: Discontinued Cefuroxime Axetil (Ceftin) 250 Mg Tablet, 250 MG PO BID Discontinued Reason: No Longer Taking Prescribed by: STAN MENENDEZ on 01/27/16 1319 Last Action: Discontinued Cholecalciferol (Vitamin D3) 1,000 Unit Capsule, 1,000 UNIT PO DAILY, (Reported) Discontinued Reason: No Longer Taking Entered as Reported by: RUDDY BRADY on 10/21/13 1435 Last Action: Discontinued Ciprofloxacin HCl (Cipro) 500 Mg Tablet, 500 MG PO BID Discontinued Reason: No Longer Taking Prescribed by: KEVIN TEMPLE on 01/16/18 0821 Last Action: Discontinued Diphenhydramine Hcl (Diphenhydramine 25 Mg) 25 Mg Tablet, 50 MG PO HS PRN for SLEEP, (Reported) Discontinued Reason: No Longer Taking Entered as Reported by: RUDDY BRADY on 10/21/13 1445 Last Action: Discontinued Ginkgo Biloba Extract (Ginkgo Biloba) 120 Mg Capsule, 120 MG PO DAILY, (Reported) Discontinued Reason: No Longer Taking Entered as Reported by: RUDDY BRADY on 10/21/13 1445 Last Action: Discontinued Lovastatin (Lovastatin 20 Mg) 20 Mg Tablet, 20 MG PO HS, (Reported) Discontinued Reason: No Longer Taking Entered as Reported by: RUDDY BRADY on 10/21/13 1431 Last Action: Discontinued Meloxicam (Meloxicam) 15 Mg Tablet, 15 MG PO DAILY, (Reported) Discontinued Reason: No Longer Taking Entered as Reported by: RUDDY BRADY on 10/21/13 143 Last Action: Discontinued Metronidazole (Flagyl) 500 Mg Tablet, 500 MG PO QID Discontinued Reason: No Longer Taking Prescribed by: KEVIN TEMPLE on 01/16/18 0821 Last Action: Discontinued Multivitamins (Vitamins (Multi-Vit)) 1 Ea Tablet, 1 TAB PO DAILY, (Reported) Discontinued Reason: No Longer Taking Entered as Reported by: MAU FISCHER on 05/14/0759 Last Action: Discontinued Ondansetron (Zofran Odt) 4 Mg Tab.rapdis, 4 MG PO Q4H Discontinued Reason: No Longer Taking Prescribed by: KEVIN TEMPLE on 01/16/18 0821 Last Action: Discontinued Potassium Chloride (Klor-Con) 10 Meq Capcr, 10 MEQ PO DAILY, (Reported) Discontinued Reason: No Longer Taking Entered as Reported by: MAU FISCHER on 05/14/0758 Last Action: Discontinued Prednisone (Prednisone) 50 Mg Tab, 50 MG PO DAILY Discontinued Reason: No Longer Taking Prescribed by: DIPIKA VENTURA on 04/03/21 1629 Last Action: Discontinued Sertraline Hcl (Sertraline Hcl) 100 Mg Tablet, 100 MG PO DAILY, (Reported) Discontinued Reason: No Longer Taking Entered as Reported by: RUDDY BRADY on 10/21/13 1435 Last Action: Discontinued Triamterene/Hctz (Dyazide 37.5-25 Capsule) 1 Each Capsule, 1 CAP PO DAILY, (Reported) Discontinued Reason: No Longer Taking Entered as Reported by: RUDDY BRADY on 10/21/13 1431 Last Action: Discontinued Past Jpioisc-Bktvik-Oiguan Hx Patient Social History Smoking Status: Never a Smoker Recent Hopitalizations: No Alcohol Use?: No Have you traveled recently?: No Immunizations Up To Date Tetanus Booster (TDap): Unknown PED Vaccines UTD: No Date of Pneumonia Vaccine: May 06, 2010 Seasonal Allergies Seasonal Allergies: No Surgeries History of Surgeries: Yes (PILEOCYST AND RECTAL FISTULA, RIGHT BREAST BIOPSY, esophagus dilation, knee) Surgeries: Appendectomy, Bowel Surgery (Hiatal hernia repair ), Orthopedic Respiratory History of Respiratory Disorde: Yes Respiratory Disorders: Sleep Apnea Cardiovascular History of Cardiac Disorders: Yes Cardiac Disorders: High Cholesterol, Hypertension Neurological History of Neurological Disord: No Reproductive System Hx Reproductive Disorders: Yes Sexually Transmitted Disease: No HIV/AIDS: No Female Reproductive Disorders: Denies [employer] History: Menopausal Genitourinary History of Genitourinary Disor: No Gastrointestinal History of Gastrointestinal Di: Yes Gastrointestinal Disorders: Hiatal Hernia Musculoskeletal History of Musculoskeletal Dis: Yes Musculoskeletal Disorders: Degenerate Disk Disease, Arthritis, Chronic Back Pain Endocrine History of Endocrine Disorders: No HEENT History of HEENT Disorders: No Cancer History of Cancer: Yes Cancer: Breast Psychosocial History of Psychiatric Problem: Yes Behavioral Health Disorders: Anxiety, Depression Integumentary History of Skin or Integumenta: No Blood Transfusions History of Blood Disorders: No Family Medical History Significant Family History: No Pertinent Family Hx Review of Systems-General Constitutional: No chills, No diaphoresis, No fever, No malaise EENTM: No blurred vision, No vision loss Respiratory: No cough, No dyspnea on exertion Cardiovascular: No chest pain Gastrointestinal: No abdominal pain, No diarrhea, No dysphagia, No heartburn, No melena, No nausea, No vomiting Genitourinary: No dysuria, No frequency : No Musculoskeletal: No muscle pain, No muscle stiffness Psychiatric/Neurological: Denies Numbness, Denies Paresthesia; Weakness (generalized but improved) Physical Exam-General Problems Physical Exam Vital Signs Vital Signs - First Documented 08/13/22 08/13/22 17:22 21:27 Temp 37.8 Pulse 85 Resp 18 B/P (MAP) 114/55 (74) Pulse Ox 94 O2 Delivery Room Air O2 Flow Rate 2.00 FiO2 97 Capillary Refill : Less Than 3 Seconds General Appearance: WD/WN, no apparent distress Eyes: Bilateral Eye PERRL, Bilateral Eye EOMI HEENT: PERRL/EOMI; No pale conjunctivae (R), No pale conjunctivae (L) Neck: non-tender, supple Respiratory: lungs clear, normal breath sounds, no respiratory distress, no accessory muscle use Cardiovascular: normal peripheral pulses, regular rate, rhythm, no gallop, no JVD, no murmur Peripheral Pulses: 2+ Dorsalis Pedis (R), 2+ Left Dors-Pedis (L), 2+ Radial Pulses (R), 2+ Radial Pulses (L) Gastrointestinal: normal bowel sounds, non tender, soft; No distended, No guarding, No rebound, No tenderness; other (negative Ronquillo's sign. ) Rectal: deferred Back: no CVA tenderness Extremities: non-tender, no pedal edema, no calf tenderness, normal capillary refill Neurologic/Psychiatric: alert, normal mood/affect, oriented x 3 Skin: normal color, warm/dry Lymphatic: no adenopathy Data Review Labs Laboratory Tests 08/13/22 17:36: White Blood Count 11.8H, Red Blood Count 4.24, Hemoglobin 12.7, Hematocrit 38, Mean Corpuscular Volume 90, Mean Corpuscular Hemoglobin 30, Mean Corpuscular Hemoglobin Concent 33, Red Cell Distribution Width 13.4, Platelet Count 281, Mean Platelet Volume 8.9L, Immature Granulocyte % (Auto) 0, Neutrophils (%) (Auto) 87H, Lymphocytes (%) (Auto) 6L, Monocytes (%) (Auto) 6, Eosinophils (%) (Auto) 1, Basophils (%) (Auto) 0, Neutrophils # (Auto) 10.2H, Lymphocytes # (Auto) 0.7L, Monocytes # (Auto) 0.7, Eosinophils # (Auto) 0.1, Basophils # (Auto) 0.0, Immature Granulocyte # (Auto) 0.1, Neutrophils % (Manual) 87, Lymphocytes % (Manual) 4, Monocytes % (Manual) 7, Eosinophils % (Manual) 1, Band Neutrophils 1, Blood Morphology Comment NORMAL, Prothrombin Time 14.4, INR Comment 1.1, Activated Partial Thromboplast Time 26, Sodium Level 137, Potassium Level 4.0, Chloride Level 103, Carbon Dioxide Level 22, Anion Gap 12, Blood Urea Nitrogen 21H, Creatinine 1.12, Estimat Glomerular Filtration Rate 50, BUN/Creatinine Ratio 19, Glucose Level 147H, Calcium Level 9.3, Corrected Calcium 9.3, Magnesium Level 1.9, Total Bilirubin 0.7, Aspartate Amino Transf (AST/SGOT) 224H, Alanine Aminotransferase (ALT/SGPT) 170H, Alkaline Phosphatase 222H, Total Creatine Kinase 106, Troponin I < 0.028, B-Type Natriuretic Peptide 80.7, Total Protein 7.3, Albumin 4.0, Lipase 19 08/13/22 18:38: Influenza Type A (RT-PCR) Not Detected, Influenza Type B (RT-PCR) Not Detected, SARS-CoV-2 RNA (RT-PCR) Not Detected 08/13/22 18:49: D-Dimer 2.57H 08/13/22 19:52: Urine Color YELLOW, Urine Clarity CLEAR, Urine pH 6.0, Urine Specific [place] 1.020, Urine Protein NEGATIVE, Urine Glucose (UA) NEGATIVE, Urine Ketones NEGATIVE, Urine Nitrite NEGATIVE, Urine Bilirubin NEGATIVE, Urine Urobilinogen 0.2, Urine Leukocyte Esterase NEGATIVE, Urine RBC (Auto) 1+H, Urine RBC 10-25H, Urine WBC NONE, Urine Squamous Epithelial Cells 2-5, Urine Crystals NONE, Urine Bacteria NEGATIVE, Urine Casts NONE, Urine Mucus NEGATIVE, Urine Culture Indicated NO 08/14/22 05:30: White Blood Count 9.5, Red Blood Count 3.80, Hemoglobin 11.3L, Hematocrit 35, Mean Corpuscular Volume 91, Mean Corpuscular Hemoglobin 30, Mean Corpuscular Hemoglobin Concent 33, Red Cell Distribution Width 13.6, Platelet Count 241, Mean Platelet Volume 8.9L, Immature Granulocyte % (Auto) 0, Neutrophils (%) (Auto) 65, Lymphocytes (%) (Auto) 20, Monocytes (%) (Auto) 12, Eosinophils (%) (Auto) 2, Basophils (%) (Auto) 0, Neutrophils # (Auto) 6.1, Lymphocytes # (Auto) 1.9, Monocytes # (Auto) 1.1H, Eosinophils # (Auto) 0.2, Basophils # (Auto) 0.0, Immature Granulocyte # (Auto) 0.0, Sodium Level 137, Potassium Level 3.8, Chloride Level 104, Carbon Dioxide Level 25, Anion Gap 8, Blood Urea Nitrogen 24H, Creatinine 1.05, Estimat Glomerular Filtration Rate 54, BUN/Creatinine Ratio 23, Glucose Level 105, Calcium Level 9.2, Corrected Calcium 9.6, Total Bilirubin 0.4, Aspartate Amino Transf (AST/SGOT) 131H, Alanine Aminotransferase (ALT/SGPT) 123H, Alkaline Phosphatase 162H, Total Protein 6.3L, Albumin 3.5 Radiology [facility]. [place], [place] NAME: RADHA DAVE [facility] REC#: [id number] PT STATUS: ADM El[place] : 1945 PHYSICIAN: LAVON JI DO ADMIT DATE: 08/13/22 Draft Date of Exam:08/14/22 US ABDOMEN LIMITED [id number] PROCEDURE: US Abdomen, limited. TECHNIQUE: Multiple realtime grayscale images were obtained over the abdomen in various projections. INDICATION: Elevated liver function tests. The liver is upper limits of normal in size, approximately 18 cm. No liver mass is identified. There does appear to be intrahepatic biliary ductal dilatation. The portal vein is patent and shows normal direction of flow. Gallbladder is distended measuring 16 cm x 4.3 x 4.8 cm. There is sludge in the gallbladder. Gallbladder wall does not appear to be appreciably thickened. No pericholecystic fluid is identified. Extrahepatic bile duct is dilated to 15 mm. Pancreas and aorta are obscured by bowel gas. IVC appears patent. Right kidney is without calculi or hydronephrosis. There is no ascites. IMPRESSION: 1. Gallbladder distention and gallbladder sludge. There is intrahepatic and extrahepatic bile duct dilatation. Common duct stone cannot be entirely excluded with these findings and MRCP may be useful for further evaluation. Dictated on workstation # [id number] Dict: 08/14/22 0857 Trans: 08/14/22907 CVB [id number] Interpreted by: AKILAH PIERRE MD Electronically signed by: Assessment/Plan Assessment/Plan Assessment/Plan Generalized weakness and fall - improved Cholelithiasis and sludge Elevated liver enzymes HTN Gallbladder US (08/14) shows distension and sludge, but no GB wall thickening Discussed with Dr. Ji, who feels like her symptoms are attributed to the ga llbladder. Plan for cholecystectomy tomorrow. Liquid diet and NPO after midnight. Monitor liver enzymes Pt is agreeable with plan Clinical Quality Measures DVT/VTE Risk/Contraindication: Contraindications-Mechi: Other *list below* Other: DVT suspected SAMANTHA MANZANARES DO 08/14/222138: History of Present Illness History of Present Illness History of Present Illness Consult requested by Dr. Ji for Cholecystectomy Patient aba 77 year old female who was walking yesterday and began feeling weak and went to the ground. She had to call ems to assist her. She states she has not had any other symptoms, but also states that she never has normal symptoms on anything. She has been trying to lose weight and has been on GO LO. She does not have any abdominal pain. She does not have any nausea or vomiting. She denies any fever sweats chills shortness of breath or chest pain. She had a gallbladder u/s showing gallbladder sludge and some intraheaptic ducts dilated. Ct chest abdomen also demonstrates mildly dilated ducts. She is feeling a little better today. Tolerating diet. Patient also with right neck cyst she has had for a long time. It fluctuates in size. She has thought about draining it herself but hasn't She wants it gone. Allergies and Home Medications Allergies Coded Allergies: cyclobenzaprine (Verified Allergy, Unknown, 05/14/07) morphine (Verified Allergy, Unknown, 08/10/08) Patient Home Medication List Home Medication List Reviewed: Yes ALPRAZolam (ALPRAZolam) 0.25 Mg Tablet, 0.25 MG PO BID PRN for ANXIETY, (Reported) Entered as Reported by: SUHAIL MELO on 08/14/221528 Last Action: Reviewed Acetaminophen with Codeine (Acetaminophen-Cod #3 Tablet) 300 Mg-30 Mg Tablet, 1 EACH PO Q6H PRN for PAIN-MODERATE (5-7), (Reported) Entered as Reported by: SUHAIL MELO on 08/14/221528 Last Action: Reviewed Aspirin (Aspirin EC) 81 Mg Tablet., 81 MG PO DAILY, (Reported) Entered as Reported by: SUHAIL MELO on 08/14/221528 Last Action: Reviewed Benazepril HCl (Benazepril HCl) 10 Mg Tablet, 10 MG PO DAILY, (Reported) Entered as Reported by: SUHAIL MELO on 08/14/221528 Last Action: Reviewed Calcium Carbonate/Vitamin D3 (Calcium 500 + Vit D Caplet) 500-3.125 Tablet, 1 EACH PO DAILY, (Reported) Entered as Reported by: SUHAIL MELO on 08/14/221528 Last Action: Reviewed Diphenhydramine HCl (Benadryl Allergy) 25 Mg Tablet, 50 MG PO HS, (Reported) Entered as Reported by: SUHAIL MELO on 08/14/221528 Last Action: Reviewed Lovastatin (Lovastatin) 20 Mg Tablet, 20 MG PO HS, (Reported) Entered as Reported by: SUHAIL MELO on 08/14/221528 Last Action: Reviewed Meloxicam (Meloxicam) 15 Mg Tablet, 15 MG PO, (Reported) Entered as Reported by: SUHAIL MELO on 08/14/221528 Last Action: Reviewed Multivitamin (Multivitamin) 1 Each Tablet, 1 EACH PO DAILY, (Reported) Entered as Reported by: SUHAIL MELO on 08/14/221528 Last Action: Reviewed Omeprazole (Omeprazole) 40 Mg Capsule., 40 MG PO DAILY, (Reported) Entered as Reported by: SUHAIL MELO on 08/14/221528 Last Action: Reviewed Potassium Chloride (Potassium Chloride) 10 Meq Capsule.er, 10 MEQ PO DAILY, (Reported) Entered as Reported by: SUHAIL MELO on 08/14/221528 Last Action: Reviewed Sertraline HCl (Sertraline HCl) 100 Mg Tablet, 100 MG PO DAILY, (Reported) Entered as Reported by: SUHAIL MELO on 08/14/221528 Last Action: Reviewed Triamterene/Hydrochlorothiazid (Triamterene-Hctz 37.5-25 mg Cp) 37.5 Mg-25 Mg Capsule, 1 EACH PO DAILY, (Reported) Entered as Reported by: SUHAIL MELO on 08/14/221528 Last Action: Reviewed Discontinued Medications Alprazolam (Xanax) 0.25 Mg Tablet, 0.5 TAB PO Q6H PRN for ANXIETY, (Reported) Discontinued Reason: No Longer Taking Entered as Reported by: MAU FISCHER on 05/14/07 1004 Last Action: Discontinued Aspirin (Aspirin) 81 Mg Tablet, 81 MG PO HS, (Reported) Discontinued Reason: No Longer Taking Entered as Reported by: MAU FISCHER on 05/14/07 1001 Last Action: Discontinued Benazepril Hcl (Lotensin 10 Mg) 10 Mg Tablet, 10 MG PO HS, (Reported) Discontinued Reason: No Longer Taking Entered as Reported by: MAU FISCHER on 05/14/07 1003 Last Action: Discontinued Calcium Carbonate/Vitamin D3 (Brad-600 W/Vit D Tablet) 1 Tab Tablet, 1 TAB PO DAILY, (Reported) Discontinued Reason: No Longer Taking Entered as Reported by: MAU FISCHER on 05/14/07 1002 Last Action: Discontinued Cefuroxime Axetil (Ceftin) 250 Mg Tablet, 250 MG PO BID Discontinued Reason: No Longer Taking Prescribed by: STAN MENENDEZ on 01/27/16 1319 Last Action: Discontinued Cholecalciferol (Vitamin D3) 1,000 Unit Capsule, 1,000 UNIT PO DAILY, (Reported) Discontinued Reason: No Longer Taking Entered as Reported by: RUDDY BRADY on 10/21/13 1435 Last Action: Discontinued Ciprofloxacin HCl (Cipro) 500 Mg Tablet, 500 MG PO BID Discontinued Reason: No Longer Taking Prescribed by: KEVIN TEMPLE on 01/16/18 0821 Last Action: Discontinued Diphenhydramine Hcl (Diphenhydramine 25 Mg) 25 Mg Tablet, 50 MG PO HS PRN for SLEEP, (Reported) Discontinued Reason: No Longer Taking Entered as Reported by: RUDDY BRADY on 10/21/13 1445 Last Action: Discontinued Ginkgo Biloba Extract (Ginkgo Biloba) 120 Mg Capsule, 120 MG PO DAILY, (Reported) Discontinued Reason: No Longer Taking Entered as Reported by: RUDDY BRADY on 10/21/13 1445 Last Action: Discontinued Lovastatin (Lovastatin 20 Mg) 20 Mg Tablet, 20 MG PO HS, (Reported) Discontinued Reason: No Longer Taking Entered as Reported by: RUDDY BRADY on 10/21/13 143 Last Action: Discontinued Meloxicam (Meloxicam) 15 Mg Tablet, 15 MG PO DAILY, (Reported) Discontinued Reason: No Longer Taking Entered as Reported by: RUDDY BRADY on 10/21/13 143 Last Action: Discontinued Metronidazole (Flagyl) 500 Mg Tablet, 500 MG PO QID Discontinued Reason: No Longer Taking Prescribed by: KEVIN TEMPLE on 01/16/18820 Last Action: Discontinued Multivitamins (Vitamins (Multi-Vit)) 1 Ea Tablet, 1 TAB PO DAILY, (Reported) Discontinued Reason: No Longer Taking Entered as Reported by: MAU FISCHER on 05/14/07958 Last Action: Discontinued Ondansetron (Zofran Odt) 4 Mg Tab.rapdis, 4 MG PO Q4H Discontinued Reason: No Longer Taking Prescribed by: KEVIN TEMPLE on 01/16/18820 Last Action: Discontinued Potassium Chloride (Klor-Con) 10 Meq Capcr, 10 MEQ PO DAILY, (Reported) Discontinued Reason: No Longer Taking Entered as Reported by: MAU FISCHER on 05/14/07957 Last Action: Discontinued Prednisone (Prednisone) 50 Mg Tab, 50 MG PO DAILY Discontinued Reason: No Longer Taking Prescribed by: DIPIKA VENTURA on 04/03/21 1629 Last Action: Discontinued Sertraline Hcl (Sertraline Hcl) 100 Mg Tablet, 100 MG PO DAILY, (Reported) Discontinued Reason: No Longer Taking Entered as Reported by: RUDDY BRADY on 10/21/13 143 Last Action: Discontinued Triamterene/Hctz (Dyazide 37.5-25 Capsule) 1 Each Capsule, 1 CAP PO DAILY, (Re ported) Discontinued Reason: No Longer Taking Entered as Reported by: RUDDY BRADY on 10/21/13 1431 Last Action: Discontinued Past Wzibyzb-Puffyu-Pxpjpe Hx Surgeries Surgeries: Appendectomy, Bowel Surgery (Hiatal hernia repair ), Orthopedic Reviewed Nursing Assessment Reviewed/Agree w Nursing PMH: Yes Family Medical History Significant Family History: No Pertinent Family Hx Review of Systems-General Constitutional: No chills, No diaphoresis; weakness EENTM: No blurred vision, No vision loss Respiratory: No cough, No dyspnea on exertion Cardiovascular: No chest pain Gastrointestinal: No abdominal pain, No nausea, No vomiting Genitourinary: No dysuria, No frequency : No Musculoskeletal: No muscle pain, No muscle stiffness Psychiatric/Neurological: Denies Numbness, Denies Paresthesia; Weakness (generalized but improved) All Other Systems Reviewed Negative Unless Noted: Yes (Negative excepted noted.) Physical Exam-General Problems Physical Exam General Appearance: WD/WN, no apparent distress HEENT: PERRL/EOMI, normal ENT inspection, other (right neck cyst) Neck: non-tender, supple Respiratory: chest non-tender, no respiratory distress, no accessory muscle use Cardiovascular: regular rate, rhythm, no JVD Gastrointestinal: non tender, soft; No distended, No guarding, No rebound, No tenderness Rectal: deferred Back: no CVA tenderness, no vertebral tenderness Extremities: non-tender, no pedal edema, no calf tenderness Neurologic/Psychiatric: alert, normal mood/affect, oriented x 3 Skin: normal color, warm/dry Lymphatic: no adenopathy Assessment/Plan Assessment/Plan Assessment/Plan Generalized weakness and fall - improved Cholelithiasis/sludge Elevated liver enzymes HTN Right neck cyst Gallbladder US (08/14) shows distension and sludge, but no GB wall thickening some intrahepatic duct dilatation and on ct ductal dilation Discussed with Dr. Ji, who feels like her symptoms are attributed to the gallbladde along with her imaging studies Discussed findings with patients and concerns and risks and benefits of lap tammy c ioc and excision of right neck cyst all other indicated procedures. She understands and wishes to proceed. C Plan for cholecystectomy and excision of right neck cyst tomorrow. Liquid diet and NPO after midnight. Monitor liver enzymes Pt is agreeable with plan Supervisory-Addendum Brief Verification & Attestation Participated in pt care: history, MDM, physical Personally performed: exam, history, MDM, supervision of care Care discussed with: Medical Student Procedures: n/a Results interpretation: Verified all documentation Verification and Attestation of Medical Student E/M Service A medical student performed and documented this service in my presence. I reviewed and verified all information documented by the medical student and made modifications to such information, when appropriate. I personally performed the physical exam and medical decision making. Samantha Manzanares, Aug 14, 2022,21:46 RHODA PHAM Aug 14, 2022 13:43 SAMANTHA MANZANARES DO Aug 14, 2022 21:39
[2022-08-14 15:26] VITALS: BP 115/71
[2022-08-14] MEDS ORDERED: OMEP40CA6 PO (15:29)
[2022-08-14] MEDS ORDERED: DIPH25TA65 PO (15:29)
[2022-08-14] MEDS ORDERED: MULT-1136 PO (15:29)
[2022-08-14] MEDS ORDERED: BENA10TA66 PO (15:29)
[2022-08-14] MEDS ORDERED: POTA10CA43 PO (15:29)
[2022-08-14] MEDS ORDERED: SERT-414 PO (15:29)
[2022-08-14] MEDS ORDERED: ACET-11 PO (15:29)
[2022-08-14] MEDS ORDERED: TRIA1CAP84 PO (15:29)
[2022-08-14] MEDS ORDERED: ALPR0.254 PO (15:29)
[2022-08-14] MEDS ORDERED: LOVA20TA2 PO (15:29)
[2022-08-14] MEDS ORDERED: ASPI-1238 PO (15:29)
[2022-08-14] MEDS ORDERED: CALC-78 PO (15:29)
[2022-08-14] MEDS ORDERED: MELO15TA39 PO (15:29)
[2022-08-14 19:28] VITALS: BP 116/69
[2022-08-14 20:51] LABS: HEPATITIS C ANTIBODY C Non-Reactive (Non-Reactive)
[2022-08-14 23:34] VITALS: BP 118/63
[2022-08-15] VITALS (14 sets, daily range): BP systolic 133–142; BP diastolic 66–87
[2022-08-15 06:57] LABS: BASOPHILS # (AUTO) 0.1 10^3/uL (0.0-0.1); BASOPHILS % (AUTO) 1 % (0-10); EOSINOPHILS # (AUTO) 0.4 10^3/uL (0.0-0.3); EOSINOPHILS % (AUTO) 5 % (0-10); HEMATOCRIT 38 % (35-52); HEMOGLOBIN 12.4 g/dL (11.5-16.0); LYMPHOCYTES # (AUTO) 2.3 10^3/uL (1.0-4.0); LYMPHOCYTES % (AUTO) 29 % (12-44); MEAN CORPUSCULAR HEMOGLOBIN 30 pg (25-34); MEAN CORPUSCULAR HGB CONC 33 g/dL (32-36); MEAN CORPUSCULAR VOLUME 91 fL (80-99); MEAN PLATELET VOLUME 8.9 fL (9.0-12.2); MONOCYTES # (AUTO) 0.9 10^3/uL (0.0-1.0); MONOCYTES % (AUTO) 11 % (0-12); NEUTROPHILS # (AUTO) 4.3 10^3/uL (1.8-7.8); NEUTROPHILS % (AUTO) 54 % (42-75); PLATELET COUNT 273 10^3/uL (130-400); WHITE BLOOD COUNT 7.9 10^3/uL (4.3-11.0)
[2022-08-15 07:27] LABS: ALBUMIN 3.7 GM/DL (3.2-4.5); BILIRUBIN,TOTAL 0.4 MG/DL (0.1-1.0); CALCIUM 9.8 MG/DL (8.5-10.1); CREATININE SERUM 0.96 MG/DL (0.60-1.30); POTASSIUM 4.2 MMOL/L (3.6-5.0); TOTAL PROTEIN 6.7 GM/DL (6.4-8.2)
--- NOTE | 2022-08-15 07:38 | Progress Note - Surgery ---
RHODA PHAM 08/15/22 0738: Subjective Date Seen by a Provider: Aug 15, 2022 Time Seen by a Provider: 07:34 Subjective/Events-last exam Pt resting comfortably, slightly anxious about today's surgery. She was NPO after midnight. Notes there is a cyst on the right side of her neck, that initially was very small with some slight drainage, that has now grown slightly in size and is no longer draining. She is pain free. Denies fever, chills, N/V, chest pain or shortness of breath. Review of Systems General: No Chills, No Night Sweats HEENT: No Head Aches, No Visual Changes Pulmonary: No Dyspnea, No Cough Cardiovascular: No: Chest Pain Gastrointestinal: No: Nausea, Vomiting, Abdominal Pain, Diarrhea, Constipation Genitourinary: No Dysuria, No Frequency Musculoskeletal: No: leg pain Neurological: No: Weakness, Numbness Objective Exam Vital Signs Date Time Temp Pulse Resp B/P (MAP) Pulse Ox O2 Delivery O2 Flow Rate FiO2 08/15/22 07:23 Room Air 0.00 08/15/22 03:18 36.1 63 16 133/71 (91) 97 Room Air 08/14/22 23:34 36.2 60 16 118/63 (81) 97 Room Air 08/14/22 20:45 Room Air 08/14/22 19:28 36.8 61 20 116/69 (85) 95 Room Air 08/14/22 15:26 36.9 60 20 115/71 (86) 97 Room Air 08/14/22 11:56 36.5 60 16 106/66 (79) 96 Room Air 08/14/22 08:29 Room Air 08/14/22 08:07 36.6 56 16 98/61 (73) 96 Nasal Cannula 2.00 08/14/22 07:42 98 Nasal Cannula 2.00 I & O 08/15/22 07:00 Intake Total 1680 ml Balance 1680 ml Capillary Refill : Less Than 3 Seconds General Appearance: No Apparent Distress, WD/WN, Anxious HEENT: PERRL/EOMI, Moist Mucous Membranes Neck: Non Tender, Supple, Other (right sided neck cyst, non tender, no erythema or drainage noted) Respiratory: Chest Non Tender, Lungs Clear, Normal Breath Sounds, No Accessory Muscle Use, No Respiratory Distress Cardiovascular: Regular Rate, Rhythm, No Edema, No Gallop, No JVD, No Murmur, Normal Peripheral Pulses Peripheral Pulses: 2+ Dorsalis Pedis (R), 2+ Left Dors-Pedis (L), 2+ Radial Pulses (R), 2+ Radial Pulses (L) Gastrointestinal: non tender, soft; No distended, No guarding, No rebound, No tenderness Extremity: Non Tender, No Calf Tenderness, No Pedal Edema Neurologic/Psychiatric: Alert, Oriented x3, Normal Mood/Affect Skin: Normal Color, Warm/Dry Lymphatic: No Adenopathy Results Lab Laboratory Tests 08/15/22 06:06: White Blood Count 7.9, Red Blood Count 4.18, Hemoglobin 12.4, Hematocrit 38, Mean Corpuscular Volume 91, Mean Corpuscular Hemoglobin 30, Mean Corpuscular Hemoglobin Concent 33, Red Cell Distribution Width 13.3, Platelet Count 273, Mean Platelet Volume 8.9L, Immature Granulocyte % (Auto) 0, Neutrophils (%) (Auto) 54, Lymphocytes (%) (Auto) 29, Monocytes (%) (Auto) 11, Eosinophils (%) (Auto) 5, Basophils (%) (Auto) 1, Neutrophils # (Auto) 4.3, Lymphocytes # (Auto) 2.3, Monocytes # (Auto) 0.9, Eosinophils # (Auto) 0.4H, Basophils # (Auto) 0.1, Immature Granulocyte # (Auto) 0.0, Sodium Level 141, Potassium Level 4.2, Chloride Level 104, Carbon Dioxide Level 29, Anion Gap 8, Blood Urea Nitrogen 22H, Creatinine 0.96, Estimat Glomerular Filtration Rate 60, BUN/Creatinine Ratio 23, Glucose Level 105, Calcium Level 9.8, Corrected Calcium 10.0, Total Bilirubin 0.4, Aspartate Amino Transf (AST/SGOT) 64H, Alanine Aminotransferase (ALT/SGPT) 88H, Alkaline Phosphatase 159H, Total Protein 6.7, Albumin 3.7 Assessment/Plan Assessment/Plan Assessment/Plan Generalized weakness and fall - improved Cholelithiasis/sludge Elevated liver enzymes - improving HTN Right neck cyst Gallbladder US (08/14) shows distension and sludge, but no GB wall thickening. Some intrahepatic duct dilatation and on ct ductal dilation Discussed with Dr. Bruno, who feels like her symptoms are attributed to the gallbladder along with her imaging studies Plan of lap cholecystectomy and excision of right neck cyst all other indicated procedures, today. She understands and wishes to proceed. Pt is agreeable with plan Clinical Quality Measures DVT/VTE Risk/Contraindication: Contraindications-Mechi: Other *list below* Other: DVT suspected SAMANTHA COLLIER DO 08/15/22 1205: Subjective Subjective/Events-last exam Patient a little anxious this morning. NPO. No new complaints. Denies n/v fever sweats chills shortness of breath or chest pain. Objective Exam General Appearance: No Apparent Distress, Anxious HEENT: PERRL/EOMI, Normal ENT Inspection Neck: Full Range of Motion, Non Tender, Supple, Other (right sided neck cyst, non tender, no erythema or drainage noted) Respiratory: Chest Non Tender, No Accessory Muscle Use, No Respiratory Distress Cardiovascular: Regular Rate, Rhythm, No JVD Gastrointestinal: non tender, soft Extremity: Non Tender, No Calf Tenderness Neurologic/Psychiatric: Alert, Oriented x3, Normal Mood/Affect Skin: Normal Color, Warm/Dry Lymphatic: No Adenopathy Assessment/Plan Assessment/Plan Assessment/Plan Generalized weakness and fall - improved Cholelithiasis/sludge Elevated liver enzymes - improving HTN Right neck cyst Gallbladder US (08/14) shows distension and sludge, but no GB wall thickening. Some intrahepatic duct dilatation and on ct ductal dilation Discussed with Dr. Bruno, who feels like her symptoms are attributed to the gallbladder along with her imaging studies Plan of lap cholecystectomy and excision of right neck cyst all other indicated procedures, today. She understands and wishes to proceed. Pt is agreeable with plan Supervisory-Addendum Brief Verification & Attestation Participated in pt care: history, MDM, physical Personally performed: exam, history, MDM, supervision of care Care discussed with: Medical Student Procedures: n/a Results interpretation: Verified all documentation Verification and Attestation of Medical Student E/M Service A medical student performed and documented this service in my presence. I reviewed and verified all information documented by the medical student and made modifications to such information, when appropriate. I personally performed the physical exam and medical decision making. Samantha Collier, Aug 15, 2022,12:05 RHODA PHAM Aug 15, 2022 07:38 SAMANTHA COLLIER DO Aug 15, 2022 12:05
[2022-08-15] MEDS: DOCUSATE SODIUM 100 MG (COLACE) CAP PO SCH (09:08)
[2022-08-15] MEDS: SENNOSIDES 8.6 MG (SENOKOT) TAB PO SCH (09:08)
--- NOTE | 2022-08-15 10:10 | Physical Therapy Progress Note ---
Therapy Progress Note Patient declined PT stating, "I'm up by myself. I don't need you anymore." Patient to have surgery on this date. PT will attempt tomorrow a.m. if patient remains in hospital. 1 ref GUILLE AGUILAR PT Aug 15, 2022 10:10
[2022-08-15] MEDS ORDERED: BUP/EPI 0.25% 1:200,000 (MARCAINE) 30 ML VIAL ONE (10:26)
--- NOTE | 2022-08-15 10:59 | Progress Note ---
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 She received 2L O2 maintaining oxygenation. Extensive imaging of her head and cervical spine showed no acute trauma, and CXR, CTA were negative for traumatic and embolic findings. She was initially given ceftriaxone and azithromycin for potential infection and was quickly deescalated. She no longer required oxygen supplementation after her first day. She was found to have elevated liver enzymes with subsequent imaging showing biliary sludge and moderate intrahepatic duct dilation. Surgery was consulted and recommended laparoscopic cholecystectomy on 08/15, this was also combined with a cyst removal on the right side of her neck. She was discharged POD 1. Objective Exam Last Set of Vital Signs Vital Signs Date Time Temp Pulse Resp B/P (MAP) Pulse Ox O2 Delivery O2 Flow Rate FiO2 08/15/22 07:56 95 Room Air 0.00 97 08/15/22 07:49 36.6 61 18 139/79 (99) Capillary Refill : Less Than 3 Seconds I&O Intake and Output 08/14/22 23:59 Intake Total 1680 ml Output Total 200 ml Balance 1480 ml Intake Oral 1380 ml IV Total 300 ml Output Urine Total 200 ml # Voids 3 # Bowel Movements 2 General: Alert, Oriented X3, Cooperative (mildly anxious for upcoming procedure), No Acute Distress HEENT: Atraumatic, PERRLA, Other (cyst noted on right neck) Heart: Regular Rate, Normal S1, Normal S2, No Murmurs Abdomen: Normal Bowel Sounds, No Tenderness, No Masses Extremities: No Clubbing, No Cyanosis, No Edema, Normal Pulses, No Tenderness/Swelling Skin: No Rashes, No Breakdown, No Significant Lesion Neuro: Normal Gait, Normal Speech, Strength at 5/5 X4 Ext, Normal Tone Results Lab Laboratory Tests 08/15/22 06:06: White Blood Count 7.9, Red Blood Count 4.18, Hemoglobin 12.4, Hematocrit 38, Mean Corpuscular Volume 91, Mean Corpuscular Hemoglobin 30, Mean Corpuscular Hemoglobin Concent 33, Red Cell Distribution Width 13.3, Platelet Count 273, Mean Platelet Volume 8.9L, Immature Granulocyte % (Auto) 0, Neutrophils (%) (Auto) 54, Lymphocytes (%) (Auto) 29, Monocytes (%) (Auto) 11, Eosinophils (%) (Auto) 5, Basophils (%) (Auto) 1, Neutrophils # (Auto) 4.3, Lymphocytes # (Auto) 2.3, Monocytes # (Auto) 0.9, Eosinophils # (Auto) 0.4H, Basophils # (Auto) 0.1, Immature Granulocyte # (Auto) 0.0, Sodium Level 141, Potassium Level 4.2, Chloride Level 104, Carbon Dioxide Level 29, Anion Gap 8, Blood Urea Nitrogen 22H, Creatinine 0.96, Estimat Glomerular Filtration Rate 60, BUN/Creatinine Ratio 23, Glucose Level 105, Calcium Level 9.8, Corrected Calcium 10.0, Total Bilirubin 0.4, Aspartate Amino Transf (AST/SGOT) 64H, Alanine Aminotransferase (ALT/SGPT) 88H, Alkaline Phosphatase 159H, Total Protein 6.7, Albumin 3.7 Assessment/Plan Assessment/Plan Assess & Plan/Chief Complaint Arleen Crain is a 77 year old female with PMH of hypertension admitted for hypoxia after a fall following acute weakness. Acute hypoxic respiratory failure Mild PE vs PNA - CXR: no acute abnormalities. - CT head /neck: Degenerative changes, no acute abnormality - D dimer did not rule out DVT - CTA: abdominal hernia, diverticulosis, and moderate intrahepatic bile duct dilation. 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 - CT head /neck: Degenerative changes, no acute abnormality - D dimer did not rule out DVT - CTA: abdominal hernia, diverticulosis, and moderate intrahepatic bile duct dilation. - BNP: Normal - 85% on 2L in ED - Currently on room air Weakness - Troponin negative - Electrolytes WNL - UA neg - Barker removed, voided 2x Elevated liver enzymes - AST (224 -> 131) and ALA (170 -> 123) - Alk phos (222->162) - US showing gallbladder dilated to 9mm (ULN) - Laparoscopic cholecystectomy scheduled for 08/15 Dyslipidemia - continue home statin History of hiatal hernia - PPI - Monitor Degenerative disc disease - Position for comfort - PT/OT DVT/VTE Risk/Contraindication: Contraindications-Mechi: Other *list below* Other: DVT suspected KATELYN JI DO 08/16/22 0515: Supervisory-Addendum Brief Verification & Attestation Participated in pt care: history, MDM, physical Personally performed: exam, history, MDM, supervision of care Care discussed with: Medical Student Procedures: n/a Results interpretation: Verified all documentation Verification and Attestation of Medical Student E/M Service A medical student performed and documented this service in my presence. I reviewed and verified all information documented by the medical student and made modifications to such information, when appropriate. I personally performed the physical exam and medical decision making. Katelyn Ji, Aug 16, 2022,05:15 TATE ASTORGA I Aug 15, 2022 10:59 KATELYN JI DO Aug 16, 2022 05:15
[2022-08-15] MEDS ORDERED: BUP/EPI 0.25% 1:200,000 (MARCAINE) 30 ML VIAL INJ ONE (11:00)
[2022-08-15] MEDS ORDERED: LIDOCAINE PF 2% 5 ML (XYLOCAINE) VIAL ONE (11:45)
[2022-08-15] MEDS ORDERED: ONDANSETRON 4 MG/2 ML (SDV) Z0FRAN ONE (11:45)
[2022-08-15] MEDS ORDERED: proPOfol 200 MG/20 ML (DIPRIVAN) VIAL IV ONE (11:45)
[2022-08-15] MEDS ORDERED: ROCURONIUM 50 MG/5 ML (ZEMURON) VIAL IV ONE (11:45)
[2022-08-15] MEDS ORDERED: SEVOFLURANE (ULTANE) 15 ML INHAL SOLN ONE ×3 (11:45→13:54)
[2022-08-15] MEDS ORDERED: fentaNYL INJ 100 MCG/2 ML AMP ONE ×2 (11:46→14:24)
[2022-08-15] MEDS ORDERED: MIDAZOLAM 2 MG/2 ML (VERSED) VIAL ONE (11:46)
[2022-08-15] MEDS ORDERED: ceFAZolin INJECTION 2,000 MG in NS (IVPB) 50 ML IV ONE (12:00)
[2022-08-15] MEDS ORDERED: ONDANSETRON 4 MG/2 ML (SDV) Z0FRAN IVP PRN ×2 (12:00→14:45)
[2022-08-15] MEDS ORDERED: fentaNYL INJ 100 MCG/2 ML AMP IVP ONE (12:00)
[2022-08-15] MEDS ORDERED: LACTATED RINGERS 1,000 ML IV PRN (12:15)
[2022-08-15] MEDS ORDERED: ceFAZolin INJECTION 2,000 MG ONE (12:18)
[2022-08-15] MEDS ORDERED: ceFAZolin INJECTION 2,000 MG VIAL IV ONE (12:30)
--- NOTE | 2022-08-15 13:07 | Discharge Summary ---
Diagnosis/Chief Complaint Date of Admission Aug 13, 2022 at 20:47 Date of Discharge Discharge Date: Aug 15, 2022 Discharge Diagnosis Hypoxia Mild PE vs PNA - CXR: no acute abnormalities. - CT head /neck: Degenerative changes, no acute abnormality - D dimer did not rule out DVT - CTA: abdominal hernia, diverticulosis, and moderate intrahepatic bile duct dilation. - BNP: Normal - 85% on 2L in ED - Currently on room air Weakness - Troponin negative - Electrolytes WNL - UA neg - Barker removed, voided 2x Elevated liver enzymes - AST (224 -> 131) and ALA (170 -> 123) - Alk phos (222->162) - US showing gallbladder dilated to 9mm (ULN) - Laparoscopic cholecystectomy scheduled for 08/15 Dyslipidemia - continue home statin History of hiatal hernia - PPI - Monitor Degenerative disc disease - Position for comfort - PT/OT Discharge Summary Discharge Physical Examination Allergies: Coded Allergies: cyclobenzaprine (Verified Allergy, Unknown, 05/14/07) morphine (Verified Allergy, Unknown, 08/10/08) Vitals & I&Os Vital Signs Date Time Temp Pulse Resp B/P (MAP) Pulse Ox O2 Delivery O2 Flow Rate FiO2 08/15/22 18:56 36.0 62 20 138/80 94 Room Air 3.00 97 General Appearance: Alert, Oriented X3, Cooperative Respiratory: Clear to Auscultation Cardiovascular: Regular Rate Hospital Course Was the Problem List Reviewed?: Yes Arleen Crain is a 77 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 She received 2L O2 maintaining oxygenation. Extensive imaging of her head and cervical spine showed no acute trauma, and CXR, CTA were negative for traumatic and embolic findings. She was initially given ceftriaxone and azithromycin for potential infection and was quickly deescalated. She no longer required oxygen supplementation after her first day. She was found to have elevated liver enzymes with subsequent imaging showing biliary sludge and moderate intrahepatic duct dilation. Surgery was consulted and recommended laparoscopic cholecystectomy on 08/15, this was also combined with a cyst removal on the right side of her neck. She was discharged POD 1. Labs (last 24 hrs) Laboratory Tests 08/13/22 05:30: Gamma Glutamyl Transpeptidase 190H, Hepatitis A IgM Antibody Non-Reactive, Hepatitis B Surface Antigen Non-Reactive, Hepatitis B Core IgM Antibody Non- Reactive, Hepatitis C Antibody Non-Reactive 08/13/22 17:36: White Blood Count 11.8H, Red Blood Count 4.24, Hemoglobin 12.7, Hematocrit 38, Mean Corpuscular Volume 90, Mean Corpuscular Hemoglobin 30, Mean Corpuscular Hemoglobin Concent 33, Red Cell Distribution Width 13.4, Platelet Count 281, Mean Platelet Volume 8.9L, Immature Granulocyte % (Auto) 0, Neutrophils (%) (Auto) 87H, Lymphocytes (%) (Auto) 6L, Monocytes (%) (Auto) 6, Eosinophils (%) (Auto) 1, Basophils (%) (Auto) 0, Neutrophils # (Auto) 10.2H, Lymphocytes # (Auto) 0.7L, Monocytes # (Auto) 0.7, Eosinophils # (Auto) 0.1, Basophils # (Auto) 0.0, Immature Granulocyte # (Auto) 0.1, Neutrophils % (Manual) 87, Lymphocytes % (Manual) 4, Monocytes % (Manual) 7, Eosinophils % (Manual) 1, Band Neutrophils 1, Blood Morphology Comment NORMAL, Prothrombin Time 14.4, INR Comment 1.1, Activated Partial Thromboplast Time 26, Sodium Level 137, Potassium Level 4.0, Chloride Level 103, Carbon Dioxide Level 22, Anion Gap 12, Blood Urea Nitrogen 21H, Creatinine 1.12, Estimat Glomerular Filtration Rate 50, BUN/Creatinine Ratio 19, Glucose Level 147H, Calcium Level 9.3, Corrected Calcium 9.3, Magnesium Level 1.9, Total Bilirubin 0.7, Aspartate Amino Transf (AST/SGOT) 224H, Alanine Aminotransferase (ALT/SGPT) 170H, Alkaline Phosphatase 222H, Total Creatine Kinase 106, Troponin I < 0.028, B-Type Natriuretic Peptide 80.7, Total Protein 7.3, Albumin 4.0, Lipase 19 08/13/22 18:38: Influenza Type A (RT-PCR) Not Detected, Influenza Type B (RT-PCR) Not Detected, SARS-CoV-2 RNA (RT-PCR) Not Detected 08/13/22 18:49: D-Dimer 2.57H 08/13/22 19:52: Urine Color YELLOW, Urine Clarity CLEAR, Urine pH 6.0, Urine Specific [place] 1.020, Urine Protein NEGATIVE, Urine Glucose (UA) NEGATIVE, Urine Ketones NEGATIVE, Urine Nitrite NEGATIVE, Urine Bilirubin NEGATIVE, Urine Urobilinogen 0.2, Urine Leukocyte Esterase NEGATIVE, Urine RBC (Auto) 1+H, Urine RBC 10-25H, Urine WBC NONE, Urine Squamous Epithelial Cells 2-5, Urine Crystals NONE, Urine Bacteria NEGATIVE, Urine Casts NONE, Urine Mucus NEGATIVE, Urine Culture Indicated NO 08/14/22 05:30: White Blood Count 9.5, Red Blood Count 3.80, Hemoglobin 11.3L, Hematocrit 35, Mean Corpuscular Volume 91, Mean Corpuscular Hemoglobin 30, Mean Corpuscular Hemoglobin Concent 33, Red Cell Distribution Width 13.6, Platelet Count 241, Mean Platelet Volume 8.9L, Immature Granulocyte % (Auto) 0, Neutrophils (%) (Auto) 65, Lymphocytes (%) (Auto) 20, Monocytes (%) (Auto) 12, Eosinophils (%) (Auto) 2, Basophils (%) (Auto) 0, Neutrophils # (Auto) 6.1, Lymphocytes # (Auto) 1.9, Monocytes # (Auto) 1.1H, Eosinophils # (Auto) 0.2, Basophils # (Auto) 0.0, Immature Granulocyte # (Auto) 0.0, Sodium Level 137, Potassium Level 3.8, Chloride Level 104, Carbon Dioxide Level 25, Anion Gap 8, Blood Urea Nitrogen 24H, Creatinine 1.05, Estimat Glomerular Filtration Rate 54, BUN/Creatinine Ratio 23, Glucose Level 105, Calcium Level 9.2, Corrected Calcium 9.6, Total Bilirubin 0.4, Aspartate Amino Transf (AST/SGOT) 131H, Alanine Aminotransferase (ALT/SGPT) 123H, Alkaline Phosphatase 162H, Total Protein 6.3L, Albumin 3.5 08/15/22 06:06: White Blood Count 7.9, Red Blood Count 4.18, Hemoglobin 12.4, Hematocrit 38, Mean Corpuscular Volume 91, Mean Corpuscular Hemoglobin 30, Mean Corpuscular Hemoglobin Concent 33, Red Cell Distribution Width 13.3, Platelet Count 273, Mean Platelet Volume 8.9L, Immature Granulocyte % (Auto) 0, Neutrophils (%) (Auto) 54, Lymphocytes (%) (Auto) 29, Monocytes (%) (Auto) 11, Eosinophils (%) (Auto) 5, Basophils (%) (Auto) 1, Neutrophils # (Auto) 4.3, Lymphocytes # (Auto) 2.3, Monocytes # (Auto) 0.9, Eosinophils # (Auto) 0.4H, Basophils # (Auto) 0.1, Immature Granulocyte # (Auto) 0.0, Sodium Level 141, Potassium Level 4.2, Chloride Level 104, Carbon Dioxide Level 29, Anion Gap 8, Blood Urea Nitrogen 22H, Creatinine 0.96, Estimat Glomerular Filtration Rate 60, BUN/Creatinine Ratio 23, Glucose Level 105, Calcium Level 9.8, Corrected Calcium 10.0, Total Bilirubin 0.4, Aspartate Amino Transf (AST/SGOT) 64H, Alanine Aminotransferase (ALT/SGPT) 88H, Alkaline Phosphatase 159H, Total Protein 6.7, Albumin 3.7 Microbiology 08/14/22 MRSA Screen - Final, Complete MRSA not isolated Pending Labs Microbiology Date/Time Source Procedure Growth Status 08/14/22 14:15 Nasal MRSA Screen - Final MRSA not isolated Complete Laboratory Tests 08/13/22 05:30: Gamma Glutamyl Transpeptidase 190, Hepatitis A IgM Antibody Non-Reactive, Hepatitis B Surface Antigen Non-Reactive, Hepatitis B Core IgM Antibody Non- Reactive, Hepatitis C Antibody Non-Reactive 08/13/22 17:36: White Blood Count 11.8, Red Blood Count 4.24, Hemoglobin 12.7, Hematocrit 38, Mean Corpuscular Volume 90, Mean Corpuscular Hemoglobin 30, Mean Corpuscular Hem oglobin Concent 33, Red Cell Distribution Width 13.4, Platelet Count 281, Mean Platelet Volume 8.9, Immature Granulocyte % (Auto) 0, Neutrophils (%) (Auto) 87, Lymphocytes (%) (Auto) 6, Monocytes (%) (Auto) 6, Eosinophils (%) (Auto) 1, Basophils (%) (Auto) 0, Neutrophils # (Auto) 10.2, Lymphocytes # (Auto) 0.7, Monocytes # (Auto) 0.7, Eosinophils # (Auto) 0.1, Basophils # (Auto) 0.0, Immature Granulocyte # (Auto) 0.1, Neutrophils % (Manual) 87, Lymphocytes % (Manual) 4, Monocytes % (Manual) 7, Eosinophils % (Manual) 1, Band Neutrophils 1, Blood Morphology Comment NORMAL, Prothrombin Time 14.4, INR Comment 1.1, Activated Partial Thromboplast Time 26, Sodium Level 137, Potassium Level 4.0, Chloride Level 103, Carbon Dioxide Level 22, Anion Gap 12, Blood Urea Nitrogen 21, Creatinine 1.12, Estimat Glomerular Filtration Rate 50, BUN/Creatinine Ratio 19, Glucose Level 147, Calcium Level 9.3, Corrected Calcium 9.3, Magnesium Level 1.9, Total Bilirubin 0.7, Aspartate Amino Transf (AST/SGOT) 224, Alanine Aminotransferase (ALT/SGPT) 170, Alkaline Phosphatase 222, Total Creatine Kinase 106, Troponin I < 0.028, B-Type Natriuretic Peptide 80.7, Total Protein 7.3, Albumin 4.0, Lipase 19 08/13/22 18:38: Influenza Type A (RT-PCR) Not Detected, Influenza Type B (RT-PCR) Not Detected, SARS-CoV-2 RNA (RT-PCR) Not Detected 08/13/22 18:49: D-Dimer 2.57 08/13/22 19:52: Urine Color YELLOW, Urine Clarity CLEAR, Urine pH 6.0, Urine Specific [place] 1.020, Urine Protein NEGATIVE, Urine Glucose (UA) NEGATIVE, Urine Ketones NEGATIVE, Urine Nitrite NEGATIVE, Urine Bilirubin NEGATIVE, Urine Urobilinogen 0.2, Urine Leukocyte Esterase NEGATIVE, Urine RBC (Auto) 1+, Urine RBC 10-25, Urine WBC NONE, Urine Squamous Epithelial Cells 2-5, Urine Crystals NONE, Urine Bacteria NEGATIVE, Urine Casts NONE, Urine Mucus NEGATIVE, Urine Culture Indicated NO 08/14/22 05:30: White Blood Count 9.5, Red Blood Count 3.80, Hemoglobin 11.3, Hematocrit 35, Mean Corpuscular Volume 91, Mean Corpuscular Hemoglobin 30, Mean Corpuscular Hemoglobin Concent 33, Red Cell Distribution Width 13.6, Platelet Count 241, Mean Platelet Volume 8.9, Immature Granulocyte % (Auto) 0, Neutrophils (%) (Auto) 65, Lymphocytes (%) (Auto) 20, Monocytes (%) (Auto) 12, Eosinophils (%) (Auto) 2, Basophils (%) (Auto) 0, Neutrophils # (Auto) 6.1, Lymphocytes # (Auto) 1.9, Monocytes # (Auto) 1.1, Eosinophils # (Auto) 0.2, Basophils # (Auto) 0.0, Immature Granulocyte # (Auto) 0.0, Sodium Level 137, Potassium Level 3.8, C hloride Level 104, Carbon Dioxide Level 25, Anion Gap 8, Blood Urea Nitrogen 24, Creatinine 1.05, Estimat Glomerular Filtration Rate 54, BUN/Creatinine Ratio 23, Glucose Level 105, Calcium Level 9.2, Corrected Calcium 9.6, Total Bilirubin 0.4, Aspartate Amino Transf (AST/SGOT) 131, Alanine Aminotransferase (ALT/SGPT) 123, Alkaline Phosphatase 162, Total Protein 6.3, Albumin 3.5 08/15/22 06:06: White Blood Count 7.9, Red Blood Count 4.18, Hemoglobin 12.4, Hematocrit 38, Mean Corpuscular Volume 91, Mean Corpuscular Hemoglobin 30, Mean Corpuscular Hemoglobin Concent 33, Red Cell Distribution Width 13.3, Platelet Count 273, Mean Platelet Volume 8.9, Immature Granulocyte % (Auto) 0, Neutrophils (%) (Auto) 54, Lymphocytes (%) (Auto) 29, Monocytes (%) (Auto) 11, Eosinophils (%) (Auto) 5, Basophils (%) (Auto) 1, Neutrophils # (Auto) 4.3, Lymphocytes # (Auto) 2.3, Monocytes # (Auto) 0.9, Eosinophils # (Auto) 0.4, Basophils # (Auto) 0.1, Immature Granulocyte # (Auto) 0.0, Sodium Level 141, Potassium Level 4.2, Chloride Level 104, Carbon Dioxide Level 29, Anion Gap 8, Blood Urea Nitrogen 22, Creatinine 0.96, Estimat Glomerular Filtration Rate 60, BUN/Creatinine Ratio 23, Glucose Level 105, Calcium Level 9.8, Corrected Calcium 10.0, Total Bilirubin 0.4, Aspartate Amino Transf (AST/SGOT) 64, Alanine Aminotransferase (ALT/SGPT) 88, Alkaline Phosphatase 159, Total Protein 6.7, Albumin 3.7 Discharge Home Medications: Active Scripts Active Hydrocodone-Acetamin 5-325 mg (Hydrocodone/Acetaminophen) 5 Mg-325 Mg Tablet 1 Each PO Q4H PRN Colace (Docusate Sodium) 100 Mg Capsule 100 Mg PO DAILY Reported Acetaminophen-Cod #3 Tablet (Acetaminophen with Codeine) 300 Mg-30 Mg Tablet 1 Each PO Q6H PRN 7 Days Aspirin EC (Aspirin) 81 Mg Tablet.dr 81 Mg PO DAILY Benadryl Allergy (Diphenhydramine HCl) 25 Mg Tablet 50 Mg PO HS Multivitamin 1 Each Tablet 1 Each PO DAILY Calcium 500 + Vit D Caplet (Calcium Carbonate/Vitamin D3) 500-3.125 Tablet 1 Each PO DAILY Meloxicam 15 Mg Tablet 15 Mg PO Benazepril HCl 10 Mg Tablet 10 Mg PO DAILY Lovastatin 20 Mg Tablet 20 Mg PO HS Triamterene-Hctz 37.5-25 mg Cp (Triamterene/Hydrochlorothiazid) 37.5 Mg-25 Mg Capsule 1 Each PO DAILY Potassium Chloride 10 Meq Capsule.er 10 Meq PO DAILY ALPRAZolam 0.25 Mg Tablet 0.25 Mg PO BID PRN Sertraline HCl 100 Mg Tablet 100 Mg PO DAILY Omeprazole 40 Mg Capsule.dr 40 Mg PO DAILY Instructions to patient/family Please see electronic discharge instructions given to patient. Diagnosis/Problems Diagnosis/Problems (1) Respiratory failure Qualifiers: Qualified Codes: J96.01 - Acute respiratory failure with hypoxia (2) Hypoxia (3) Transaminitis Status: Acute (4) Fall Status: Acute Qualifiers: Qualified Codes: W19.XXXA - Unspecified fall, initial encounter Clinical Quality Measures DVT/VTE Risk/Contraindication: Contraindications-Mechi: Other *list below* Other: DVT suspected LAVON JI DO Aug 15, 2022 13:07
[2022-08-15] MEDS ORDERED: IOHEXOL 240 MGI/ML 50 ML (OMNIPAQUE) VIAL INJ ONE (13:11)
[2022-08-15] MEDS ORDERED: GLYCOPYRROLATE 0.2 MG/ML (ROBINUL) 2 ML VIAL ONE (13:37)
[2022-08-15] MEDS ORDERED: NEOSTIGMINE 3 MG/3 ML VIAL ONE (13:37)
--- NOTE | 2022-08-15 14:40 | Anesthesia-General Post-Op ---
General Patient Condition Mental Status/LOC: Same as Preop Cardiovascular: Satisfactory Nausea/Vomiting: Absent Respiratory: Satisfactory Pain: Controlled Complications: Absent Post Op Complications Complications None Follow Up Care/Instructions Patient Instructions None needed. Anesthesia/Patient Condition Patient Condition Patient is doing well, does C/O minimal nausea which zofran will be given in PACU, stable vital signs, no apparent adverse anesthesia problems. No complications reported per nursing. DAMON GALEANO DO Aug 15, 2022 14:40
[2022-08-15] MEDS ORDERED: HYDROcodone/APAP 5 MG/325 MG (LORTAB) TAB PO PRN (15:45)
--- NOTE | 2022-08-15 16:18 | Diagnostic Imaging Report ---
INDICATION: Cholecystectomy. TECHNIQUE: Operative cholangiogram performed in the routine fashion. FINDINGS: 14.5 seconds of fluoro time was used, 84 images were obtained. There is some narrowing of the ampulla, with questionable filling defect in the lower common duct. Intrahepatic ducts are not visualized. There is reflux of contrast into the pancreatic duct. Some contrast does flow into the duodenum. IMPRESSION: Prominence of the common duct is noted with questionable filling defect in distal common bile duct which may represent nonobstructing stone. There is some narrowing of the ampulla. Some contrast does reach the duodenum. There is reflux of contrast into the pancreatic duct. Dictated by: Dictated on workstation # [id number]
[2022-08-15] MEDS ORDERED: ACHD5005 PO ×2 (17:09→18:16)
[2022-08-15] MEDS ORDERED: DOCU-143 PO (17:09)
[2022-08-15] MEDS ORDERED: ceFAZolin INJECTION 2,000 MG in NS (IVPB) 50 ML IV SCH (20:00)
--- NOTE | 2022-08-16 05:12 | OPERATIVE REPORT ---
DATE OF SERVICE: 08/15/2022 PREOPERATIVE DIAGNOSES: Cholelithiasis, right neck cyst. POSTOPERATIVE DIAGNOSIS: Cholelithiasis, right neck cyst. PROCEDURES: 1. Laparoscopic cholecystectomy with intraoperative cholangiogram. 2. Excision of right neck cyst 0.7 x 1 cm. SURGEON: Samantha Collier DO REVENUE DIRECTOR: Dr. Patterson, assisted in retraction, dissection and closure. ANESTHESIA: General. ESTIMATED BLOOD LOSS: Minimal. COMPLICATIONS: None. INDICATIONS: The patient is a 77-year-old female, who was admitted due to weakness and was found to have slightly elevated liver enzymes. She had a gallbladder ultrasound demonstrated distended gallbladder with sludge and dilated ducts. She also had a cyst on the neck that she has had for some time and would like to have it removed. She has thought about surgically excising herself. She would like to have it removed as well. She understands all risks and benefits of procedure and wished to proceed. Consent was signed and on the chart. DESCRIPTION OF PROCEDURE: The patient was taken to the operating suite. She was prepped and draped in sterile fashion. Timeout was performed. Midline incision was made just above the umbilicus for a 12 mm trocar site. Local anesthetic was infiltrated. A #11 blade scalpel was used to make the incision. Cautery was used to dissect down to the fascia, which was scored, grasped and elevated. The abdomen was then entered. 0 Vicryl was placed in a [id number] fashion for closure at the end of the case. Acute trocar was inserted and pneumoperitoneum was achieved. Some adhesions present and also peritoneal lining down causing a false appearance of a hernia, which was noted on previous CT scan. Under direct visualization, laparoscope, a 5 mm trocar was placed in the subxiphoid region and two 5 mm trocars were placed in the right upper quadrant. Using the LigaSure, the falciform and adhesions were taken down. The gallbladder was grasped and elevated. A distended gallbladder with multiple adhesions stuck to it, adhesions were then taken down with both blunt and cautery dissection. The cystic duct appeared to be slightly dilated. [place] was used to continue to dissect it free until dissected around. Clip was placed on the distal portion of the cystic duct. The duct was then partially transected. Cholangiogram was inserted. Cholangiogram was performed. No filling defects. Contrast made its way into the duodenum without difficulty. The catheter was removed. Clips were placed on the proximal portion of the cystic duct and the duct was then transected. The cystic artery was then dissected out as well, which did have some branching which had to be dilated and as well. Hook cautery used to dissect the gallbladder from the gallbladder fossa achieving hemostasis. Once removed, it was placed in an Endobag and removed through the 12 mm trocar site. had to be opened through the incision and drained would come out. The abdomen was then reinspected. A copious amount of irrigation was used to irrigate the abdomen and suctioned out. No other pathology noted. The trocars were removed. The 0 Vicryl was placed at the beginning of the case was tied. The wounds were irrigated with saline and the skin was then closed using 4-0 Monocryl in a subcuticular fashion. The right neck cyst had local anesthetic infiltrated around it. A 15 blade scalpel was used to make an elliptical incision around the mass. Cautery was used to dissect the skin and subcutaneous tissues until removed. Hemostasis was achieved. Measurements 0.7 x 1 cm. Skin was then closed using 4-0 Prolene in a simple running fashion. The area was washed and dried. Sterile bandages were applied. On the abdomen, skin Affix was placed over the incisions. The patient tolerated the procedure well without complications, taken to recovery room in stable condition. Dr. Patterson, assisted in retraction, dissection and closure. Job ID: [id number] DocumentID: [id number] Dictated Date: 08/15/2022 22:23:35 Bezel Cutter Date: 08/16/2022 05:10:00 Dictated By: SAMANTHA COLLIER DO
== END 2022-08-15 18:58 | disposition home or self-care (01) ==
LOC: EDUNIT# 17:20 → ER 17:21 → UNDOADMOB 20:47 → 4TH 20:47 → UNDODISOB 08-15 18:58
PROVIDERS: ADMIT Internal Medicine; ATTEND Internal Medicine
DX: J96.01 Acute respiratory failure with hypoxia (principal); R74.01 Elevation of levels of liver transaminase levels; W19.XXXA Unspecified fall, initial encounter; E78.5 Hyperlipidemia, unspecified; K44.9 Diaphragmatic hernia without obstruction or gangrene; Z79.899 Other long term (current) drug therapy
CPT/HCPCS: 36415; 51702; 70450; 71045; 71275; 72125; 74177; 76000; 76705; 80053; 80074; 81000; 82550; 82977; 83690; 83735; 83880; 84484; 85007; 85025; 85027; 85379; 85610; 85730; 87081; 87636; 93005; 93041; 94760; 96372; G0378